=== PATIENT | male | born 1970 | race Caucasian/White ===

== ENCOUNTER 2016-11-17 15:42 | Emergency (ER) | payer SELFPAY ==
[~2016-11-17] VITALS: Ht 190.5 cm; Wt 160.1 kg
[~2016-11-17 15:42] MED LIST: ALPR1TAB72 PO; AMOX-358 PO; ARIP10TA2 PO; ARMO250T3 PO; ATEN50TA PO; ATR20T PO; CLN150C PO; CYCL10TA9 PO; ESCI20TA2 PO; GBPN300C PO; HYDR-3714 PO; MELO-195 PO; METO50TA7 PO; MTF500T PO; NAPR-243 PO; OMG1KC; PENI500T PO; PRAV40TA PO; SERT100T PO; TOPAMAX PO; TOPI50TA2 PO; TRAZ150T42 PO; TRIH2TAB2 PO
--- NOTE | 2016-11-17 15:52 | ED EENT ---
History of Present Illness General Stated Complaint: TOOTH PAIN/RT SIDED FACIAL SWELLING Source: patient Exam Limitations: no limitations History of Present Illness Time seen by provider: 15:50 Initial Comments To ER with a 3-4 day history of swelling to the right side of the mandible. This is intensely painful and he cannot eat because of it. No fevers or chills. He is noncompliant diabetic states that he does not take his medications. Timing/Duration: abrupt Severity: moderate Location: mouth, dental Associated Symptoms: facial pain/swelling Allergies and Home Medications Allergies Coded Allergies: bupropion (Verified Allergy, Unknown, 10/29/06) atorvastatin calcium (Verified Adverse Reaction, Unknown, 11/09/12) Home Medications Hydrocodone Bit/Acetaminophen 1 Tab Tablet, 1 TAB PO Q4H, #14 Prescribed by: VERONICA PRECIADO on 04/04/14 0532 Meloxicam 15 Mg Tablet, 15 MG PO DAILY, (Reported) Metformin Hcl 500 Mg Tablet, 2 EACH PO BID WITH MEALS, (Reported) Metoprolol Succinate 50 Mg Tab.sr.24h, 1 EACH PO DAILY, (Reported) [place] 3 Polyunsat Fatty Acids 1,000 Mg Cap, #120 (Reported) Penicillin V Potassium 500 Mg Tablet, 500 MG PO Q6H, #28 Prescribed by: RAUL VÁZQUEZ on 12/16/15 1943 Pravastatin Sodium 40 Mg Tablet, 20 MG PO DAILY, (Reported) Sertraline Hcl 100 Mg Tablet, 100 MG PO DAILY, (Reported) Topiramate 50 Mg Tablet, 50 MG PO BID, (Reported) Review of Systems Constitutional: see HPI, No chills, No fever Eyes: No Symptoms Reported Ears: No Symptoms Reported Nose: no symptoms reported Mouth: see HPI Throat: no symptoms reported Respiratory: no symptoms reported Cardiovascular: no symptoms reported Musculoskeletal: no symptoms reported Past Bvjvldy-Ppbwkb-Rlhtlf Hx Patient Social History Type Used: Pipe Recent Foreign Travel: No Contact w/Someone Who Travel: No Seasonal Allergies Seasonal Allergies: No Surgeries HX Surgeries: No Respiratory Hx Respiratory Disorders: Yes (HAS A CPAP) Respiratory Disorders: Sleep Apnea Cardiovascular Hx Cardiac Disorders: Yes Cardiac Disorders: High Cholesterol, Hypertension Neurological Hx 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) Reproductive System Hx Reproductive Disorders: No Genitourinary Hx Genitourinary Disorders: No Gastrointestinal Hx Gastrointestinal Disorders: No Musculoskeletal Hx Musculoskeletal Disorders: No Endocrine Hx Endocrine Disorders: Yes Endocrine Disorders: Diabetes, Non-Insulin dep HEENT HX ENT Disorders: No Cancer Hx Cancer: No Psychosocial Hx Psychiatric Problems: Yes Behavioral Health Disorders: Anxiety, Depression Integumentary HX Skin/Integumentary Disorder: Yes (NUMEROUS SCABBED OR HEALED SKIN LESIONS) Blood Transfusions Hx Blood Disorders: No Family Medical History Significant Family History: No Pertinent Family Hx Family Medial History: Diabetes mellitus 19 MOTHER G8 SISTER Physical Exam General Appearance: WD/WN, no apparent distress, obese Eyes: bilateral eye EOMI, bilateral eye PERRL, bilateral eye normal inspection Ears: bilateral ear TM normal, bilateral ear auricle normal, bilateral ear canal normal Mouth/Throat: other (poor dentition on the right side of the mandible. There is a fluctuant rather large area to the buccal mucosa near the molars on the right) Respiratory: normal breath sounds, no respiratory distress, no accessory muscle use Neurologic/Psychiatric: alert, normal mood/affect, oriented x 3 Skin: normal color, warm/dry I&D : Blade Size: 11 Progress An inferior alveolar nerve block was done on the right side. Total of 1 mL of 1 percent lidocaine without epinephrine was used. An incision was then made over the maximum area of fluctuance. A large amount of purulent material was expressed. Bleeding was minimal and easily controlled Progress/Results/Core Measures Results/Orders Lab Results Laboratory Tests Test 11/17/16 00:00 11/17/16 15:55 Range/Units My Orders Orders - RAUL VÁZQUEZ APRN Saline Lock/Iv-Start (11/17/16 15:48) Cbc With Automated Diff (11/17/16 15:48) Basic Metabolic Panel (11/17/16 15:48) Clindamycin Injection (Cleocin Injection (11/17/16 16:00) Ketorolac Injection (Toradol Injection) (11/17/16 16:00) Hydrocodone/Apap 5/325 Tablet (Lortab 5 (11/17/16 16:00) Lidocaine 2% Injection 20 Ml (Xylocaine (11/17/16 16:00) Medications Given in ED Current Medications Medications Dose Ordered Sig/Liliane Route Start Time Stop Time Status Last Admin Dose Admin Acetaminophen/ Hydrocodone Bitart 1 tab ONCE ONCE PO 11/17/16 16:00 11/17/16 16:01 DC 11/17/16 16:04 1 TAB Clindamycin Phosphate 900 mg/ Sodium Chloride 56 ml @ 100 mls/hr ONCE ONCE IV 11/17/16 16:00 11/17/16 16:33 11/17/16 16:04 100 MLS/HR Ketorolac Tromethamine 30 mg ONCE ONCE IVP 11/17/16 16:00 11/17/16 16:01 DC 11/17/16 16:03 30 MG Departure Communication Progress Notes Patient states that he pays for his medications with [facility] so they would need to be on the $4 prescription list. Impression Impression: Primary Impression: Dental abscess Disposition: HOME, SELF-CARE Condition: Stable Departure-Patient Inst. Decision time for Depature: 16:14 Referrals: [facility] (PCP/Family) Primary Care Physician Patient Instructions: Tooth Abscess (DC) Add. Discharge Instructions: 1. Medications as directed 2. Return to ER for any concerns 3. See your dentist next week 4. Scripts Hydrocodone/Acetaminophen ([place] 5-325 Tablet) 1 Each Tablet 1 EACH PO Q6H Y for PAIN-SEVERE, #14 TAB Do not fill unless amoxicillin is also filled and this has been sent to [facility] pharmacy. Prov: RAUL VÁZQUEZ APRN 11/17/16 Amoxicillin (Amoxicillin) 500 Mg Capsule 500 MG PO TID, #21 CAP Prov: RAUL VÁZQUEZ APRN 11/17/16 Images Mouth/Nose 1 - Fracture Tooth, Swelling 2 - Caries, Fracture Tooth RAUL VÁZQUEZ APRN Nov 17, 2016 15:52
[2016-11-17] MEDS ORDERED: KETOROLAC 30 MG/ML VIAL IVP ONE (16:00)
[2016-11-17] MEDS ORDERED: CLINDAMYCIN INJECTION 900 MG in NS (IVPB) 50 ML IV ONE (16:00)
[2016-11-17] MEDS ORDERED: HYDROcodone/APAP 5 MG/325 MG (LORTAB) TAB PO ONE (16:00)
[2016-11-17] MEDS ORDERED: LIDOCAINE 2% 20 ML (XYLOCAINE) VIAL INJ ONE (16:00)
[2016-11-17] MEDS ORDERED: HYDR-757 PO (16:16)
[2016-11-17] MEDS ORDERED: AMOX500C2 PO (16:16)
[2016-11-17 16:17] LABS: BASOPHILS % (AUTO) 0 % (0-10); EOSINOPHILS # (AUTO) 0.1 10^3/uL (0.0-0.3); EOSINOPHILS % (AUTO) 1 % (0-10); LYMPHOCYTES % (AUTO) 27 % (12-44); MEAN CORPUSCULAR HEMOGLOBIN 30 PG (25-34); MEAN CORPUSCULAR HGB CONC 34 G/DL (32-36); MEAN CORPUSCULAR VOLUME 87 FL (80-99); MEAN PLATELET VOLUME 10.5 FL (7.4-10.4); MONOCYTES % (AUTO) 9 % (0-12); NEUTROPHILS % (AUTO) 63 % (42-75); PLATELET COUNT 210 10^3/uL (130-400); RED BLOOD COUNT 5.29 10^6/uL (4.35-5.85); RED CELL DISTRIBUTION WIDTH 13.9 % (10.0-14.5); WHITE BLOOD COUNT 11.2 10^3/uL (4.3-11.0)
[2016-11-17 16:38] LABS: ANION GAP 15 MMOL/L (5-14); BLOOD UREA NITROGEN 6 MG/DL (7-18); BUN/CREATININE RATIO 6; CALCIUM 8.5 MG/DL (8.5-10.1); CARBON DIOXIDE 17 MMOL/L (21-32); CHLORIDE 104 MMOL/L (98-107); CREATININE SERUM 0.98 MG/DL (0.60-1.30); GFR ESTIMATED > 60; GLUCOSE 281 MG/DL (70-105); POTASSIUM 3.7 MMOL/L (3.6-5.0); SODIUM 136 MMOL/L (135-145)
[2016-11-17 17:06] VITALS: BP 133/97
== END 2016-11-17 17:06 | disposition home or self-care (01) ==
LOC: EDUNIT# 15:42 → ER 15:44
DX: K04.7 Periapical abscess without sinus (principal); G47.33 Obstructive sleep apnea (adult) (pediatric); E78.00 Pure hypercholesterolemia, unspecified; I10 Essential (primary) hypertension; F41.9 Anxiety disorder, unspecified; F32.9 Major depressive disorder, single episode, unspecified; E11.9 Type 2 diabetes mellitus without complications; Z91.14 Patient's other noncompliance with medication regimen; Z79.84 Long term (current) use of oral hypoglycemic drugs
CPT/HCPCS: 36415; 80048; 85025; 96365; 96375

== ENCOUNTER 2017-11-21 16:10 | Emergency (ER) | payer OTHER, MEDICAID ==
[~2017-11-21] VITALS: Ht 190.5 cm; Wt 124.7 kg
[~2017-11-21 16:10] MED LIST changes: +AMOX500C2 PO; +HYDR-757 PO
--- OUTSIDE RECORDS SUMMARY | 2017-11-21 16:16 | XMS REPORT ---
Author Author HUMA Dickinson Organization [facility] Address [address] [place] [address] Care Team Providers Care Personal Finance Instructor Name Role Phone HUMA Dickinson Unavailable PROBLEMS Type Condition ICD9-CM Code [id number] Code Onset Dates Condition Status SNOMED Code Problem Major depressive disorder, single episode, unspecified F32.9 Active 435959113 Problem Depression 311 Active 77509038 Problem Schizotypal disorder F21 Active 36503290 Problem Hypertension, benign I10 Active 31835078 Problem Bipolar 1 disorder F31.9 Active 083603016 Problem Anxiety F41.9 Active 10240313 Problem Severe episode of recurrent major depressive disorder, with psychotic features F33.3 Active 87774407 Problem Generalized anxiety disorder F41.1 Active 33869608 Problem Controlled type 2 diabetes mellitus without complication, without long -term current use of insulin E11.9 Active 255700996 Problem Uncontrolled type 2 diabetes mellitus without complication, without long-term current use of insulin E11.65 Active 309723795 Problem Seasonal allergic rhinitis due to pollen J30.1 Active 26615252 Problem Low back pain of thoracolumbar region with sciatica M54.40 Active 997442601 ALLERGIES No Information ENCOUNTERS Encounter Location Date Diagnosis [facility] [id number] [place] [address] 21581- 3714 Sep, PTSD (post-traumatic stress disorder) F43.10 and Severe episode of recurrent major depressive disorder, with psychotic features F33.3 [facility] [id number] [place] [address] 37214- 9573 Sep, Acute upper back pain M54.9 and BMI 40.0-44.9, adult Z68.41 [facility] [address] [address] August, [facility] [id number] [address] 9530 19 Jul, 2017 Severe episode of recurrent major depressive disorder, with psychotic features F33.3 ; Generalized anxiety disorder F41.1 and BMI 40.0-44.9 , adult Z68.41 [facility] [id number] [place] [address] 26031- 8359 18 Jul, 2017 Type 2 diabetes mellitus with other specified complication E11.69 and Encounter for immunization Z23 [facility] [id number] [place] [address] 11296- 1762 Jul, [facility] [id number] [place] [address] 45888- 2680 Jun, [facility] [id number] [place] [address] 42678- 5788 Jun, [facility] [id number] [place] [address] 24618- 3341 Jun, BMI 40.0-44.9, adult Z68.41 ; Severe episode of recurrent major depressive disorder, with psychotic features F33.3 and Generalized anxiety disorder F41.1 [facility] [id number] [place] [address] 89703- 7018 15 Jun, 2017 BMI 40.0-44.9, adult Z68.41 and Severe episode of recurrent major depressive disorder, with psychotic features F33.3 [facility] [id number] [place] [address] 62166- 8485 14 Jun, 2017 Major depressive disorder, single episode, unspecified F32.9 [facility] [address] [address] 3279 14 Jun, 2017 [facility] [id number] [place] [address] 58406- 7085 14 Jun, 2017 BMI 40.0-44.9, adult Z68.41 and Severe episode of recurrent major depressive disorder, with psychotic features F33.3 [facility] [id number] [place] [address] 90814- 7548 Jun, BMI 40.0-44.9, adult Z68.41 ; Type 2 diabetes mellitus with other specified complication E11.69 and Bronchitis J40 [facility] [id number] [place] [address] 78014- 8667 Jun, [facility] [id number] [place] [address] 75024- 8899 Mar, [facility] [address] 78759- 4312 Feb, Type 2 diabetes mellitus with other specified complication E11.69 ; Generalized anxiety disorder F41.1 and Hypertension, benign I10 [facility] [address] 46953- 2599 Jan, Seasonal allergic rhinitis due to pollen J30.1 ; Viral gastroenteritis A08.4 and PTSD (post-traumatic stress disorder) F43.10 [facility] [id number] [place] [address] 46735- 8962 Sep, [facility] [address] 28429- 2153 Sep, Erythema L53.9 [facility] [id number] [place] [address] 85868- 8703 August, Type 2 diabetes mellitus with other specified complication E11.69 and Hypertension, benign I10 [facility] [id number] [place] [address] 08250- 6745 August, Viral gastroenteritis A08.4 ; Type 2 diabetes mellitus with other specified complication E11.69 ; Hypertension, benign I10 and PTSD (post- traumatic stress disorder) F43.10 [facility] [id number] [place] [address] 27375- 4197 August, [facility] [id number] [place] [address] 93981- 8475 August, PTSD (post-traumatic stress disorder) F43.10 [facility] [id number] [place] [address] 58648- 6129 Jul, [facility] [id number] [place] [address] 85296- 9190 Jun, Type 2 diabetes mellitus with other specified complication E11.69 [facility] [id number] [place] [address] 21252 -5836 28 May, 2016 Body aches R52 ; Sore throat J02.9 ; Other viral agents as the cause of diseases classified elsewhere B97.89 and Acute upper respiratory infection, unspecified J06.9 [facility] [id number] [place] [address] 86511- 0948 May, [facility] [id number] [place] [address] 28833- 8139 May, Seasonal allergic rhinitis due to pollen J30.1 and Controlled type 2 diabetes mellitus without complication, without long-term current use of insulin E11.9 [facility] [id number] [place] [address] 99207- 2404 02 May, 2016 PTSD (post-traumatic stress disorder) F43.10 and Generalized anxiety disorder F41.1 [facility] [id number] [place] [address] 10659- 0620 Apr, Type 2 diabetes mellitus with other specified complication E11.69 ; Bronchitis J40 and Low back pain of thoracolumbar region with sciatica M54.40 [facility] [id number] [place] [address] 51497- 0456 Apr, PTSD (post-traumatic stress disorder) F43.10 and Uncontrolled type 2 diabetes mellitus without complication, without long-term current use of insulin E11.65 [facility] [id number] [place] [address] 24792- 8798 Mar, Type 2 diabetes mellitus with other specified complication E11.69 ; Urinary retention R33.9 and Urinary frequency R35.[address] 90164- 2992 Mar, Bronchitis J40 [facility] [place] [id number] [place] [address] 05087- 6297 Feb, Controlled type 2 diabetes mellitus without complication, without long-term current use of insulin E11.9 and Hypertension, benign I10 [facility] [id number] [place] [address] 43516- 2971 Feb, PTSD (post-traumatic stress disorder) F43.10 [facility] [id number] [place] [address] 97472- 1016 Jan, [facility] [id number] [place] [address] 03579- 2821 Jan, Uncontrolled type 2 diabetes mellitus without complication, without long-term current use of insulin E11.65 [facility] [id number] [place] [address] 71339- 0017 Dec, Diabetes type 2, controlled E11.9 ; Periodontal abscess K05.21 and Sinusitis, unspecified chronicity, unspecified location J32.9 [facility] [id number] [place] [address] 61752- 0250 Dec, [facility] [id number] [place] [address] 50238- 5548 Dec, [facility] [id number] [place] [address] 09042- 7934 Nov, Chronic fatigue R53.82 [facility] [id number] [place] [address] 37863- 6580 Oct, Common wart B07.8 [facility] [id number] [place] [address] 82474- 5173 Sep, Type 2 diabetes mellitus with other specified complication E11.69 ; Common wart B07.8 and Dermatofibroma D23.9 [facility] [id number] [place] [address] 16810- 9579 Sep, PTSD (post-traumatic stress disorder) F43.10 and Generalized anxiety disorder F41.1 [facility] [id number] [place] [address] 22228- 8974 Jul, [facility] [address] 10171- 1360 Jul, [facility] [id number] [place] [address] 70857- 4409 Jul, PTSD (post-traumatic stress disorder) F43.10 and Generalized anxiety disorder F41.1 [facility] [place] [address] 34213- 4794 Jul, [facility] [address] 69808- 0113 Jul, Obesity, morbid E66.01 ; Diabetes type 2, controlled E11.9 ; Hypertension, benign I10 and Arthritis M19.90 [facility] [address] 53694- 6230 Jul, Type 2 diabetes mellitus without complications E11.9 [facility] [id number] [place] [address] 13857- 7837 17 Jun, 2015 Type 2 diabetes mellitus with other specified complication E11.69 [facility] [facility] [id number] [place] [address] 90336- 7498 07 Jun, 2015 Type 2 diabetes mellitus with other specified complication E11.69 and Abdominal pain, generalized R10.84 [facility] [id number] [place] [address] 12983- 4443 May, [facility] [id number] [place] [address] 55753- 2803 May, Toothache K08.8 [facility] [id number] [place] [address] 22704- 2173 Apr, [facility] [id number] [place] [address] [id number] Mar, Dental examination Z01.20 and Dental caries K02.9 [facility] [id number] [place] [address] [id number]- 2735 Mar, [facility] [id number] [place] [address] [id number] Mar, Dental examination Z01.20 and Dental caries K02.9 [facility] [id number] [place] [address] 41080- 0949 Feb, Dental abscess K04.7 and Type 2 diabetes mellitus with other specified complication E11.69 [facility] [id number] [place] [address] 99472- 6790 Feb, [facility] [address] 707080- 1476 Feb, PTSD (post-traumatic stress disorder) F43.10 ; Generalized anxiety disorder F41.1 and Depressive disorder F32.9 [facility] [id number] [place] [address] 31693- 3264 Jan, [facility] [id number] [place] [address] 44930- 4899 Jan, [facility] [id number] [place] [address] 39631- 6047 Jan, [facility] [id number] [place] [address] 55940- 4203 Jan, [facility] [id number] [place] [address] 47863- 3950 14 Dec, 2014 Vision changes 368.9 ; Diabetes 250.00 and Hypertension 401.9 [facility] [id number] [place] [address] 33042- 4087 04 Dec, 2014 Generalized anxiety disorder 300.02 ; Depressive disorder, not elsewhere classified 311 and Posttraumatic stress disorder 309.81 [facility] [id number] [place] [address] 55915452- 9732 Nov, [facility] [id number] [place] [address] 24517- 7978 Oct, [facility] [address] [facility] [id number] [address]- 1577 Sep, Erectile dysfunction 607.84 [facility] [address] [address]- 8786 16 Sep, 2014 [facility] [address], [place] [address]- 2916 Sep, Generalized anxiety disorder 300.02 ; Depressive disorder, not elsewhere classified 311 and Posttraumatic stress disorder 309.81 [facility] [address] [facility] [id number] [place] [address]- 4946 August, [facility] [id number] [place] [address] 57666- 1116 14 Jul, 2014 [facility] [address], [place] [address]- 4176 Jul, [facility] [address], [place] [address]- 0896 Jun, [facility] [address], [place] [address]- 3576 Jun, [facility] [address], [place] [address]- 6756 Jun, [facility] [address] [address]- 5706 Jun, [facility] [address] [address]- 3686 Jun, [facility] [id number] [address]- 3754 10 Jun, 2014 [facility] [address], [place] [address] 2546 Jun, [facility] [address] [facility] [id number], [place] [address]- 2546 10 Jun, 2014 [facility] [address] [address]- 8687 Jun, [facility] [place] [facility] [address] [id number] [place] [address]- 6544 Jun, [facility] [place] [facility] [address] [id number] [place] [address]- 5762 Jun, 2014 [facility] [place] [facility] [address] [facility] [id number] [place] [address]- 5643 Jun, [facility] [place] [facility] [address] [id number] [place] [address]- 3509 Mar, [facility] [place] [facility] [address] [id number] [place] [address]- 9562 Mar, [facility] [place] [facility] [address] [id number] [place] [address]- 3099 Jan, [facility] [place] [facility] [address] [id number] [place] [address]- 4879 Jan, [facility] [place] [facility] [address] [id number] [address]- 7252 15 Dec, 2013 [facility] [place] [facility] [address] [id number] [place] [address]- 1605 15 Dec, 2013 [facility] [place] [facility] [address] [id number] [place] [address]- 6794 15 Dec, 2013 [facility] [place] [facility] [address] [id number], [place] [address]- 7598 15 Dec, 2013 [facility] [place] [facility] [address] [id number], [place] [address]- 4167 Dec, 2013 [facility] [place] [facility] [address] [id number] [place] [address]- 0009 Dec, 2013 [facility] [place] [facility] [address] [id number] [place] [address]- 5013 Dec, 2013 [facility] [place] [facility] [address] [id number] [address]- 8536 Dec, 2013 [facility] [place] [facility] [address] [id number] [place] [address]- 2655 Dec, [facility] [place] [facility] [address] [id number] [place] [address]- 9316 Dec, [facility] [place] [facility] [address] [id number] [place] [address]- 6139 Nov, [facility] [place] [facility] [address] [id number] [place] [address]- 0707 Nov, [facility] [place] [facility] [address] [id number] [place] [address]- 0335 Oct, [facility] [place] [facility] [address] [id number] [place] [address]- 6974 Oct, [facility] [place] [facility] [address] [id number] [place] [address]- 7983 Oct, [facility] [place] [facility] [address] [id number] [place] [address]- 3133 Oct, [facility] [place] [facility] [address] [id number] [place] [address]- 7085 Oct, [facility] [place] [facility] [address] [id number] [place] [address]- 0182 Oct, [facility] [place] [facility] [address] [id number] [place] [address]- 6912 Sep, [facility] [place] [facility] [address] [id number] [place] [address]- 5131 Sep, [facility] [place] [facility] [address] [id number] [place] [address]- 3381 Sep, [facility] [place] [facility] [address] [id number] [place] [address]- 0843 Sep, [facility] [place] [facility] [address] [id number] [place] [address]- 4423 August, [facility] [place] [facility] [address] [id number] [place] [address]- 2576 August, [facility] [place] [facility] [address] [id number] [place] [address]- 7251 August, [facility] [place] [facility] [address] [id number] [place] [address]- 1320 August, [facility] [place] [facility] [address] [id number] [place] 4750 August, [facility] [place] [facility] [address] [id number] [place] [address]- 9741 Jul, [facility] [place] [facility] [address] [id number] [place] [address]- 8100 Jul, [facility] [place] [facility] [address] [id number] [place] [address]- 1061 Jul, [facility] [place] [facility] [address] [id number] [place] [address]- 7494 Jul, [facility] [place] [facility] [address] [id number] [place] [address]- 1453 Jul, [facility] [place] [facility] [address] [id number] [place] [address]- 0390 Jul, [facility] [place] [facility] [address] [id number] [place] [address]- 5833 May, [facility] [place] [facility] [address] [id number] [place] [address]- 3104 May, [facility] [place] [facility] [address] [id number] [place] [address]- 1348 Apr, [facility] [place] [facility] [address] [id number] [place] [address]- 6233 Apr, [facility] [place] [facility] [address] [id number] [place] [address]- 2531 Apr, [facility] [place] [facility] [address] [id number] [place] [address]- 9850 Apr, [facility] [place] [facility] [address] [id number], [place] [address]- 8646 Apr, [facility] [address] [id number] [place] [address]- 9777 Apr, [facility] [place] [facility] [address] [id number] [place] [address]- 2797 Feb, [facility] [place] [facility] [address] [id number] [place] [address]- 1023 Feb, [facility] [place] [facility] [address] [id number] [place] [address]- 3097 Feb, [facility] [place] [facility] [address] [id number] [place] [address]- 1487 Feb, [facility] [place] [facility] [address] [id number] [place] [address]- 7545 Feb, [facility] [address] [id number] [place] [address]- 5284 Feb, [facility] [place] [facility] [address] [id number] [place] [address]- 2043 Jan, [facility] [address] [id number] [place] [address]- 8415 Dec, [facility] [place] [facility] [address] [id number] [place] [address]- 3147 Oct, [facility] [place] [facility] [address] [id number], [place] [address]- 1151 August, [facility] [place] [facility] [address] [id number] [place] [address]- 1347 August, [facility] [place] [facility] [address] [id number] [place] [address]- 3695 August, [facility] [place] [facility] [address] [id number] [place] [address]- 7070 August, [facility] [place] [facility] [address] [id number] [place] [address]- 5977 Jul, [facility] [place] [facility] [address] [id number] [place] [address]- 8647 23 Jul, 2012 [facility] [address] [id number] [place] [address]- 0436 18 Jul, 2012 [facility] [place] [facility] [address] [id number] [place] [address]- 4076 18 Jul, 2012 [facility] [address] [id number] [place] [address]- 6876 16 Jul, 2012 [facility] [place] [facility] [address] [id number] [place] [address]- 1238 20 Jun, 2012 [facility] [address] [id number] [place] [address]- 9447 20 Jun, 2012 [facility] [address] [id number] [place] [address]- 3712 15 Jun, 2012 [facility] [address] [id number] [place] [address]- 3953 13 Jun, 2012 [facility] [address] [id number] [place] [address]- 5501 22 May, 2012 [facility] [address] [id number] [place] [address] 13 May, 2012 [facility] [address] [id number] [place] [address] 15 Apr, 2012 [facility] [address] [id number] [place] [address] 26 Mar, 2012 [facility] [address] [id number] [place] [address] 26 Mar, 2012 [facility] [place] [facility] [address] [id number] [place] [address] 14 Mar, 2012 [facility] [place] [facility] [address] [id number] [place] [address] 14 Mar, 2012 [facility] [place] [facility] [address] [id number] [place] [address] Mar, [facility] [place] [facility] [address] [id number] [place] [address] 14 Mar, 2012 [facility] [place] [facility] [address] [id number] [place] [address] Mar, [facility] [place] [facility] [address] [facility] [id number] [place] [address] Mar, [facility] [place] [facility] [address] [id number] [place] [address] Mar, [facility] [place] [facility] [address] [id number] [place] [address] Feb, [facility] [place] [facility] [address] [id number] [place] [address] Feb, [facility] [place] [facility] [address] [facility] [id number] [place] [address] Feb, [facility] [place] [facility] [address] [id number], [place] [address] Feb, [facility] [place] [facility] [address] [id number] [place] [address] Feb, [facility] [place] [facility] [address] [facility] [id number] [place] [address] Feb, [facility] [place] [facility] [address] [id number], [place] [address] Feb, [facility] [place] [facility] [address] [id number], [place] [address] Feb, [facility] [place] [facility] [address] [id number] [place] [address] Jan, [facility] [place] [facility] [address] [id number], [place] [address] Jan, [facility] [place] [facility] [address] [facility] [id number], [place] [address] Jan, [facility] [place] [facility] [address] [id number] [place] [address] Jan, [facility] [place] [facility] [address] [id number] [place] [address] Jan, [facility] [place] [facility] [address] [id number] [place] [address] Jan, [facility] [place] [facility] [address] [id number] [place] [address] Jan, [facility] [place] [facility] [address] [id number] [place] [address] Jan, [facility] [place] [facility] [address] [address] [id number] [place] [address] Jan, [facility] [place] [facility] [address] [id number] [place] [address] Jan, [facility] [place] [facility] [address] [id number] [place] [address] Dec, [facility] [place] [facility] [address] [id number] [place] [address] Dec, [facility] [place] [facility] [address] [id number] [place] [address] Dec, [facility] [place] [facility] [address] [id number] [place] [address] Nov, [facility] [place] [facility] [address] [id number] [place] [address] Nov, [facility] [place] [facility] [address] [id number] [place] [address] Nov, [facility] [place] [facility] [address] [id number] [place] [address] Nov, [facility] [place] [facility] [address] [id number] [place] [address] Oct, [facility] [place] [facility] [address] [id number] [place] [address] Oct, [facility] [address] [facility] [place] [id number], [place] [address] Sep, [facility] [address] [facility] [place] [id number], [place] [address] Sep, [facility] [address] [facility] [place] [id number], [place] [address] Apr, [facility] [address] [facility] [id number], [place] [address] Apr, IMMUNIZATIONS No Known Immunizations SOCIAL HISTORY Never Assessed REASON FOR VISIT [facility] intake PLAN OF CARE Activity Details Follow Up Not rescheduled Reason:Rule out depression VITAL SIGNS MEDICATIONS Unknown Medications RESULTS No Results PROCEDURES Procedure Date Ordered Result Body Site Psych diagnostic evaluation, new patient July 11, 2017 INSTRUCTIONS MEDICATIONS ADMINISTERED No Known Medications MEDICAL (GENERAL) HISTORY Type Description Date Medical History hypertension Medical History hyperlipidemia Medical History psychiatric disorders Medical History Type 2 diabetes Surgical History dental surgery Hospitalization History pneumonia 10/2006
--- OUTSIDE RECORDS SUMMARY | 2017-11-21 16:17 | XMS REPORT ---
Author Author FAUSTO WES Organization [facility] Address [address] [place] [address] Care Team Providers Care Computing Tutor Name Role Phone JENIFFERCAREN ACOSTAA Unavailable PROBLEMS Type Condition ICD9-CM Code ITL54-ZD Code Onset Dates Condition Status SNOMED Code Problem Major depressive disorder, single episode, unspecified F32.9 Active 179771955 Problem Depression 311 Active 32014831 Problem Schizotypal disorder F21 Active 76396969 Problem Hypertension, benign I10 Active 87604400 Problem Bipolar 1 disorder F31.9 Active 274280775 Problem Anxiety F41.9 Active 62070306 Problem Severe episode of recurrent major depressive disorder, with psychotic features F33.3 Active 23433281 Problem Generalized anxiety disorder F41.1 Active 30938505 Problem Controlled type 2 diabetes mellitus without complication, without long -term current use of insulin E11.9 Active 643428054 Problem Uncontrolled type 2 diabetes mellitus without complication, without long-term current use of insulin E11.65 Active 175066914 Problem Seasonal allergic rhinitis due to pollen J30.1 Active 74464954 Problem Low back pain of thoracolumbar region with sciatica M54.40 Active 548914641 ALLERGIES No Information ENCOUNTERS Encounter Location Date Diagnosis [facility] [id number] [place] [address] 04594- 5266 Sep, PTSD (post-traumatic stress disorder) F43.10 and Severe episode of recurrent major depressive disorder, with psychotic features F33.3 [facility] [id number] [address] Sep, Acute upper back pain M54.9 and BMI 40.0-44.9, adult Z68.41 [facility] [address], [place] [address] August, [facility] [id number] [address] 7578 19 Jul, 2017 Severe episode of recurrent major depressive disorder, with psychotic features F33.3 ; Generalized anxiety disorder F41.1 and BMI 40.0-44.9 , adult Z68.41 [facility] [id number] [place] [address] 37956- 0808 18 Jul, 2017 Type 2 diabetes mellitus with other specified complication E11.69 and Encounter for immunization Z23 [facility] [id number] [place] [address] 08944- 1767 17 Jul, 2017 [facility] [id number] [place] [address] 15288- 3757 Jun, [facility] [id number] [place] [address] 49117- 6322 Jun, [facility] [facility] [id number] [place] [address] 85892- 1112 Jun, BMI 40.0-44.9, adult Z68.41 ; Severe episode of recurrent major depressive disorder, with psychotic features F33.3 and Generalized anxiety disorder F41.1 [facility] [facility] [id number] [place] [address] 92592- 5417 15 Jun, 2017 BMI 40.0-44.9, adult Z68.41 and Severe episode of recurrent major depressive disorder, with psychotic features F33.3 [facility] [id number] [place] [address] 98422- 6908 14 Jun, 2017 Major depressive disorder, single episode, unspecified F32.9 [facility] [address] [place] [address] 89049- 6110 14 Jun, 2017 [facility] [id number] [place] [address] 35492- 7975 14 Jun, 2017 BMI 40.0-44.9, adult Z68.41 and Severe episode of recurrent major depressive disorder, with psychotic features F33.3 [facility] [id number] [place] [address] 88484- 6848 Jun, BMI 40.0-44.9, adult Z68.41 ; Type 2 diabetes mellitus with other specified complication E11.69 and Bronchitis J40 [facility] [facility] [id number] [place] [address] 07062- 4497 Jun, [facility] [id number] [place] [address] 49223- 4684 Mar, [facility] [id number] [place] [address] 13603- 1092 Feb, Type 2 diabetes mellitus with other specified complication E11.69 ; Generalized anxiety disorder F41.1 and Hypertension, benign I10 [place] [address] 30719- 3805 Jan, Seasonal allergic rhinitis due to pollen J30.1 ; Viral gastroenteritis A08.4 and PTSD (post-traumatic stress disorder) F43.10 [facility] [id number] [place] [address] 40998- 8593 Sep, [facility] [id number] [place] [address] 06133- 2134 Sep, Erythema L53.9 [facility] [id number] [place] [address] 99471- 7248 August, Type 2 diabetes mellitus with other specified complication E11.69 and Hypertension, benign I10 [facility] [id number] [place] [address] 32285- 8042 August, Viral gastroenteritis A08.4 ; Type 2 diabetes mellitus with other specified complication E11.69 ; Hypertension, benign I10 and PTSD (post- traumatic stress disorder) F43.10 [facility] [place] [id number] [place] [address] 38419- 0346 August, [facility] [id number] [place] [address] 76701- 8132 August, PTSD (post-traumatic stress disorder) F43.10 [facility] [id number] [place] [address] 45599- 4914 Jul, [facility] [address] [place] [address] 16826- 4997 Jun, Type 2 diabetes mellitus with other specified complication E11.69 [facility] [address] [place] [address] 19475 -8936 May, Body aches R52 ; Sore throat J02.9 ; Other viral agents as the cause of diseases classified elsewhere B97.89 and Acute upper respiratory infection, unspecified J06.9 [facility] [id number] [place] [address] 80105- 2469 May, [facility] [id number] [place] [address] 11199- 8426 May, Seasonal allergic rhinitis due to pollen J30.1 and Controlled type 2 diabetes mellitus without complication, without long-term current use of insulin E11.9 [facility] [place] [id number] [place] [address] 01449- 7942 02 May, 2016 PTSD (post-traumatic stress disorder) F43.10 and Generalized anxiety disorder F41.1 [facility] [place] [id number] [place] [address] 20527- 1051 Apr, Type 2 diabetes mellitus with other specified complication E11.69 ; Bronchitis J40 and Low back pain of thoracolumbar region with sciatica M54.40 [facility] [address] [place] [address] 34856- 3747 Apr, PTSD (post-traumatic stress disorder) F43.10 and Uncontrolled type 2 diabetes mellitus without complication, without long-term current use of insulin E11.65 [facility] [id number] [place] [address] 16060- 9288 Mar, Type 2 diabetes mellitus with other specified complication E11.69 ; Urinary retention R33.9 and Urinary frequency R35.0 [place] [id number] [place] [address] 55813- 5105 Mar, Bronchitis J40 [place] [address] [place] [address] 67805- 1436 28 Feb, 2016 Controlled type 2 diabetes mellitus without complication, without long-term current use of insulin E11.9 and Hypertension, benign I10 [facility] [id number] [place] [address] 78682- 9639 03 Feb, 2016 PTSD (post-traumatic stress disorder) F43.10 [facility] [place] [id number] [place] [address] 51220- 6685 Jan, [facility] [id number] [place] [address] 78930- 6808 Jan, Uncontrolled type 2 diabetes mellitus without complication, without long-term current use of insulin E11.65 [facility] [id number] [place] [address] 09151- 2747 Dec, Diabetes type 2, controlled E11.9 ; Periodontal abscess K05.21 and Sinusitis, unspecified chronicity, unspecified location J32.9 [facility] [id number] [place] [address] 59077- 4500 21 Dec, 2015 [place] [place] [id number] [place] [address] 40596- 4686 Dec, [facility] [id number] [place] [address] 18170- 6553 Nov, Chronic fatigue R53.82 [facility] [id number] [place] [address] 27060- 7067 Oct, Common wart B07.8 [facility] [facility] [id number] [place] [address] 00464- 3923 Sep, Type 2 diabetes mellitus with other specified complication E11.69 ; Common wart B07.8 and Dermatofibroma D23.9 [facility] [address] [place] [address] 31885- 7838 Sep, PTSD (post-traumatic stress disorder) F43.10 and Generalized anxiety disorder F41.1 [place] [address], [place] [address]- 5772 Jul, [facility] [id number] [place] [address] 28259- 3776 Jul, [place] [id number] [place] [address] 12539- 3297 Jul, PTSD (post-traumatic stress disorder) F43.10 and Generalized anxiety disorder F41.1 [place] [id number] [place] [address] 41496- 5316 Jul, [place] [id number] [place] [address] 04677- 9884 Jul, Obesity, morbid E66.01 ; Diabetes type 2, controlled E11.9 ; Hypertension, benign I10 and Arthritis M19.[address] 23554- 5631 Jul, Type 2 diabetes mellitus without complications E11.9 [place] [id number] [place] [address] 98501- 0149 17 Jun, 2015 Type 2 diabetes mellitus with other specified complication E11.69 [place] [id number] [place] [address] 60967- 2236 07 Jun, 2015 Type 2 diabetes mellitus with other specified complication E11.69 and Abdominal pain, generalized R10.84 [place] [id number] [place] [address] 30533- 4017 May, [place] [id number] [place] [address] 34950- 0428 May, Toothache K08.8 [place] [id number] [place] [address] 65428- 0046 Apr, [facility] [address] [place] [address] [id number] Mar, Dental examination Z01.20 and Dental caries K02.9 [place] [address] 9531 Mar, [facility] [address] [place] [address] [id number] Mar, Dental examination Z01.20 and Dental caries K02.9 [facility] [id number] [place] [address] 54365- 8978 Feb, Dental abscess K04.7 and Type 2 diabetes mellitus with other specified complication E11.69 [facility] [id number] [place] [address] 04597- 5626 Feb, [facility] [address] 336699- 6224 Feb, PTSD (post-traumatic stress disorder) F43.10 ; Generalized anxiety disorder F41.1 and Depressive disorder F32.9 [facility] [id number] [place] [address] 39355- 8146 Jan, [facility] [id number] [place] [address] 02833- 9887 Jan, [facility] [id number] [place] [address] 53834- 6987 Jan, [facility] [id number] [place] [address] 94441- 7550 Jan, [facility] [id number] [place] [address] 32804- 1480 14 Dec, 2014 Vision changes 368.9 ; Diabetes 250.00 and Hypertension 401.9 [facility] [id number] [place] [address] 54763- 0753 04 Dec, 2014 Generalized anxiety disorder 300.02 ; Depressive disorder, not elsewhere classified 311 and Posttraumatic stress disorder 309.81 [facility] [id number] [place] [address] 315575- 6547 Nov, [facility] [id number] [place] [address] 60839- 5831 Oct, [facility] [address], [place] [address]- 0826 Sep, Erectile dysfunction 607.84 [facility] [address] [address]- 5236 16 Sep, 2014 [facility] [address], [place] [address]- 8246 09 Sep, 2014 Generalized anxiety disorder 300.02 ; Depressive disorder, not elsewhere classified 311 and Posttraumatic stress disorder 309.81 [facility] [address], [place] [address]- 3926 August, [facility] [id number] [place] [address] 26897- 7576 14 Jul, 2014 [facility] [address], [place] [address]- 8566 Jul, [facility] [address] [place] [address] 90545- 7206 Jun, [facility] [address], [place] [address]- 3960 26 Jun, 2014 [facility] [address], [place] [address]- 2333 Jun, [facility] [address], [place] [address]- 9736 Jun, [facility] [address], [place] [address]- 2448 10 Jun, 2014 [facility] [id number] [address]- 2546 10 Jun, 2014 [facility] [address], [place] [address]- 2106 10 Jun, 2014 [facility] [address], [place] [address]- 6506 10 Jun, 2014 [facility] [id number] 8352 10 Jun, 2014 [facility] [place] [facility] [address] [id number] [place] [address]- 6494 10 Jun, 2014 [facility] [place] [facility] [address] [id number] [place] [address]- 0424 Jun, 2014 [facility] [place] [facility] [address] [id number] [place] [address]- 8508 Jun, 2014 [facility] [place] [facility] [address] [id number] [place] [address]- 6542 Mar, [facility] [place] [facility] [address] [id number] [place] [address]- 1950 Mar, [facility] [place] [facility] [address] [id number] [place] [address]- 4538 Jan, [facility] [place] [facility] [address] [id number] [place] [address]- 1003 Jan, [facility] [place] [facility] [address] [id number] [place] [address]- 2965 15 Dec, 2013 [facility] [place] [facility] [address] [id number] [place] [address]- 2505 15 Dec, 2013 [facility] [place] [facility] [address] [id number] [place] [address]- 4767 15 Dec, 2013 [facility] [place] [facility] [address] [id number], [place] [address]- 2125 15 Dec, 2013 [facility] [place] [facility] [address] [id number], [place] [address]- 6647 Dec, 2013 [facility] [place] [facility] [address] [id number] [place] [address]- 8056 Dec, 2013 [facility] [place] [facility] [address] [id number] [place] [address]- 4713 Dec, 2013 [facility] [place] [facility] [address] [id number], [place] [address]- 2493 Dec, 2013 [facility] [place] [facility] [address] [id number], [place] [address]- 4391 Dec, [facility] [place] [facility] [address] [id number] [place] [address]- 4899 Dec, [facility] [place] [facility] [address] [id number] [place] [address]- 4248 Nov, [facility] [place] [facility] [address] [id number] [place] [address]- 0408 Nov, [facility] [place] [facility] [address] [id number] [place] [address]- 7246 Oct, [facility] [place] [facility] [address] [id number] [place] [address]- 1787 Oct, [facility] [place] [facility] [address] [id number] [place] [address]- 2956 Oct, [facility] [place] [facility] [address] [id number] [place] [address]- 4082 Oct, [facility] [place] [facility] [address] [id number] [place] [address]- 0126 Oct, [facility] [place] [facility] [address] [id number] [place] [address]- 1203 Oct, [facility] [place] [facility] [address] [id number] [place] [address]- 8436 Sep, [facility] [place] [facility] [address] [id number] [place] [address]- 6124 Sep, [facility] [place] [facility] [address] [id number] [place] [address]- 8565 Sep, [facility] [place] [facility] [address] [id number] [place] [address]- 6721 Sep, [facility] [place] [facility] [address] [id number] [place]- 2277 August, [facility] [place] [facility] [address] [id number] [place] [address]- 5750 August, [facility] [place] [facility] [address] [id number] [place] [address]- 1189 August, [facility] [place] [facility] [address] [id number] [place] [address]- 1975 August, [facility] [place] [facility] [address] [id number] [place] [address]- 7021 August, [facility] [place] [facility] [address] [id number] [place] [address]- 7563 Jul, [facility] [place] [facility] [address] [id number] [place] [address]- 9127 Jul, [facility] [place] [facility] [address] [id number] [place] [address]- 3356 Jul, [facility] [place] [facility] [address] [id number] [place] [address]- 4565 Jul, [facility] [place] [facility] [address] [id number] [place] [address]- 8394 Jul, [facility] [place] [facility] [address] [id number] [place] [address]- 5302 Jul, [facility] [place] [facility] [address] [id number] [place] [address]- 7911 May, [facility] [place] [facility] [address] [id number] [place] [address]- 4150 May, [facility] [place] [facility] [address] [id number] [place] [address]- 3932 Apr, [facility] [place] [facility] [address] [id number] [place] [address]- 9553 Apr, [facility] [place] [facility] [address] [id number] [place] [address]- 3130 Apr, [facility] [place] [facility] [address] [id number] [place] [address]- 7093 Apr, [facility] [place] [facility] [address] [id number] [place] [address]- 3022 Apr, [facility] [place] [facility] [address] [id number] [place] [address]- 7589 Apr, [facility] [place] [facility] [address] [id number] [place] [address]- 8101 Feb, [facility] [place] [facility] [address] [id number] [place] 5493 Feb, [facility] [place] [facility] [address] [id number] [place] [address]- 4304 Feb, [facility] [place] [facility] [address] [id number] [place] [address]- 7012 Feb, [facility] [place] [facility] [address] [id number] [place] [address]- 8697 Feb, [facility] [place] [facility] [address] [id number] [place] [address]- 6605 Feb, [facility] [place] [facility] [address] [id number] [place] [address]- 3007 Jan, [facility] [place] [facility] [address] [id number] [place] [address]- 9906 Dec, [facility] [place] [facility] [address] [id number] [place] [address]- 0808 Oct, [facility] [place] [facility] [address] [id number], [place] [address]- 7861 August, [facility] [place] [facility] [address] [id number], [place] [address]- 7570 August, [facility] [place] [facility] [address] [id number] [place] [address]- 9379 August, [facility] [place] [facility] [address] [id number], [place] [address]- 9833 August, [facility] [place] [facility] [address] [id number] [place] [address]- 6928 Jul, [facility] [place] [facility] [address] [id number] [place] [address]- 4472 23 Jul, 2012 [facility] [address] [id number] [place] [address]- 5416 18 Jul, 2012 [facility] [address] [id number] [place] [address]- 8626 18 Jul, 2012 [facility] [address] [id number] [place] [address]- 3616 16 Jul, 2012 [facility] [address] [id number] [place] [address]- 1555 20 Jun, 2012 [facility] [address] [id number] [place] [address]- 0081 20 Jun, 2012 [facility] [address] [id number] [place] [address]- 0218 15 Jun, 2012 [facility] [address] [id number] [place] [address]- 5960 13 Jun, 2012 [facility] [address] [id number] [place] [address]- 7764 22 May, 2012 [facility] [address] [id number] [place] [address] 13 May, 2012 [facility] [address] [id number] [place] [address] 15 Apr, 2012 [facility] [address] [id number] [place] [address] 26 Mar, 2012 [facility] [address] [id number] [place] [address] 26 Mar, 2012 [facility] [address] [id number] [place] 14 Mar, 2012 [facility] [address] [id number] [place] [address] 14 Mar, 2012 [facility] [address] [id number] [place] [address] Mar, [facility] [place] [facility] [address] [id number] [place] [address] 14 Mar, 2012 [facility] [place] [facility] [address] [id number] [place] [address] Mar, [facility] [place] [facility] [address] [id number] [place] [address] Mar, [facility] [place] [facility] [address] [id number] [place] [address] Mar, [facility] [place] [facility] [address] [id number] [place] [address] Feb, [facility] [place] [facility] [address] [id number] [place] [address] Feb, [facility] [place] [facility] [address] [id number] [place] [address] Feb, [facility] [place] [facility] [address] [id number], [place] [address] Feb, [facility] [place] [facility] [address] [id number] [place] [address] Feb, [facility] [place] [facility] [address] [facility] [id number], [place] [address] Feb, [facility] [place] [facility] [address] [facility] [id number], [place] [address] Feb, [facility] [place] [facility] [address] [id number], [place] [address] Feb, [facility] [place] [facility] [address] [id number], [place] [address] Jan, [facility] [place] [facility] [address] [id number], [place] [address] Jan, [facility] [place] [facility] [address] [facility] [id number], [place] [address] Jan, [facility] [place] [facility] [address] [id number], [place] [address] Jan, [facility] [place] [facility] [address] [id number] [place] [address] Jan, [facility] [place] [facility] [address] [id number] [place] [address] Jan, [facility] [place] [facility] [address] [id number] [place] [address] 114[address] Jan, [facility] [place] [facility] [address] [id number] [place] [address] Jan, [facility] [place] [facility] [address] [id number] [place] [address], [place] [address]- [address] Jan, [facility] [place] [facility] [address] [id number] [place] [address] Jan, [facility] [place] [facility] [address] [facility] [id number] [place] [address]- [address] Dec, [facility] [place] [facility] [address] [id number] [place] [address] Dec, [facility] [place] [facility] [address] [id number] [place] [address] Dec, [facility] [place] [facility] [address] [facility] [id number] [place] [address] Nov, [facility] [place] [facility] [address] [id number] [place] [address] Nov, [facility] [place] [facility] [address] [id number] [place] [address]697 Nov, [facility] [place] [facility] [address] [id number] [place] [address] Nov, [facility] [place] [facility] [address] [facility] [id number] [place] [address] Oct, [facility] [place] [facility] [address] [facility] [id number] [place] [address] Oct, [facility] [place] [facility] [address] [facility] [id number] [place] [address] Sep, [facility] [address] [facility] [id number], [place] [address] Sep, [facility] [address] [facility] [id number][place] [address] Apr, [facility] [address] [facility] [id number][place] [address] Apr, IMMUNIZATIONS No Known Immunizations SOCIAL HISTORY Never Assessed REASON FOR VISIT PALS-rexulti PLAN OF CARE VITAL SIGNS MEDICATIONS Medication Instructions Dosage Frequency Start Date End Date Duration Status Rexulti 2 MG Orally Once a day 1 tablet 24h Jun, 90 days Active RESULTS No Results PROCEDURES No Known procedures INSTRUCTIONS MEDICATIONS ADMINISTERED No Known Medications MEDICAL (GENERAL) HISTORY Type Description Date Medical History hypertension Medical History hyperlipidemia Medical History psychiatric disorders Medical History Type 2 diabetes Surgical History dental surgery Hospitalization History pneumonia 10/2006
--- OUTSIDE RECORDS SUMMARY | 2017-11-21 16:17 | XMS REPORT ---
Author Author FAUSTO WES Organization [facility] Address [address] [place] [address] Care Team Providers Care Sales Trainee Name Role Phone JENIFFERWES ACOSTA Unavailable PROBLEMS Type Condition ICD9-CM Code [id number] Code Onset Dates Condition Status SNOMED Code Problem Major depressive disorder, single episode, unspecified F32.9 Active 025308973 Problem Depression 311 Active 33940431 Problem Schizotypal disorder F21 Active 19642376 Problem Hypertension, benign I10 Active 58858222 Problem Bipolar 1 disorder F31.9 Active 201505088 Problem Anxiety F41.9 Active 85251712 Problem Severe episode of recurrent major depressive disorder, with psychotic features F33.3 Active 48839231 Problem Generalized anxiety disorder F41.1 Active 78344945 Problem Controlled type 2 diabetes mellitus without complication, without long -term current use of insulin E11.9 Active 999576791 Problem Uncontrolled type 2 diabetes mellitus without complication, without long-term current use of insulin E11.65 Active 947689675 Problem Seasonal allergic rhinitis due to pollen J30.1 Active 32857101 Problem Low back pain of thoracolumbar region with sciatica M54.40 Active 510002960 ALLERGIES Substance Reaction Event Type Date Status Zyban rash Drug Allergy Jun, Active Lipitor Unknown Drug Allergy Jun, Active ENCOUNTERS Encounter Location Date Diagnosis [facility] [id number], [place] [address] Sep, PTSD (post-traumatic stress disorder) F43.10 and Severe episode of recurrent major depressive disorder, with psychotic features F33.3 [facility] [id number], [place] [address] Sep, Acute upper back pain M54.9 and BMI 40.0-44.9, adult Z68.41 [facility] [id number] [place] [address] 22168- 4808 August, [address] [address], [place] [address] Jul, Severe episode of recurrent major depressive disorder, with psychotic features F33.3 ; Generalized anxiety disorder F41.1 and BMI 40.0-44.9 , adult Z68.41 [place] [id number] [place] [address] 39549- 9729 Jul, Type 2 diabetes mellitus with other specified complication E11.69 and Encounter for immunization Z23 [place] [id number] [place] [address] 32351- 8724 Jul, [place] [id number] [place] [address] 13953- 3870 Jun, [place] [id number] [place] [address] 86264- 2828 Jun, [place] [id number] [place] [address] 30245- 9356 Jun, BMI 40.0-44.9, adult Z68.41 ; Severe episode of recurrent major depressive disorder, with psychotic features F33.3 and Generalized anxiety disorder F41.1 [place] [address], [place] [address] 15 Jun, 2017 BMI 40.0-44.9, adult Z68.41 and Severe episode of recurrent major depressive disorder, with psychotic features F33.3 [place] [address] [address], [place] [address] 14 Jun, 2017 Major depressive disorder, single episode, unspecified F32.9 [place] [id number] [place] [address] 23630- 9222 14 Jun, 2017 [address] [address], [place] [address] Jun, BMI 40.0-44.9, adult Z68.41 and Severe episode of recurrent major depressive disorder, with psychotic features F33.3 [place] [address], [place] [address] 1518 13 Jun, 2017 BMI 40.0-44.9, adult Z68.41 ; Type 2 diabetes mellitus with other specified complication E11.69 and Bronchitis J40 [place] [id number], [place] [address] 57[address] Jun, [place] [id number] [place] [address] 74921- 6752 Mar, [place] [id number] [place] [address] 61948- 4370 Feb, Type 2 diabetes mellitus with other specified complication E11.69 ; Generalized anxiety disorder F41.1 and Hypertension, benign I10 [place] [id number] [place] [address] 76444- 7770 Jan, Seasonal allergic rhinitis due to pollen J30.1 ; Viral gastroenteritis A08.4 and PTSD (post-traumatic stress disorder) F43.10 [place] [id number] [place] [address] 07620- 0572 Sep, [place] [id number] [place] [address] 79228- 8233 Sep, Erythema L53.9 [place] [id number] [place] [address] 30732- 2468 August, Type 2 diabetes mellitus with other specified complication E11.69 and Hypertension, benign I10 [address] [id number] [place] [address] 41943- 5347 August, Viral gastroenteritis A08.4 ; Type 2 diabetes mellitus with other specified complication E11.69 ; Hypertension, benign I10 and PTSD (post- traumatic stress disorder) F43.10 [place] [address] [address], [place] [address] 26[address] August, [place] [id number], [place] [address] 9260 August, PTSD (post-traumatic stress disorder) F43.10 [facility] [address], [place] [address]- 3[address] Jul, [facility] [id number] [place] [address] 79426- 6223 Jun, Type 2 diabetes mellitus with other specified complication E11.69 [facility] [id number] [place] [address] 65637 -3178 May, Body aches R52 ; Sore throat J02.9 ; Other viral agents as the cause of diseases classified elsewhere B97.89 and Acute upper respiratory infection, unspecified J06.9 [place] [id number] [place] [address] 75899- 7182 May, [place] [id number] [place] [address] 24480- 5208 May, Seasonal allergic rhinitis due to pollen J30.1 and Controlled type 2 diabetes mellitus without complication, without long-term current use of insulin E11.9 [place] [id number] [place] [address] 61588- 6595 02 May, 2016 PTSD (post-traumatic stress disorder) F43.10 and Generalized anxiety disorder F41.1 [place] [id number] [place] [address] 20183- 5438 Apr, Type 2 diabetes mellitus with other specified complication E11.69 ; Bronchitis J40 and Low back pain of thoracolumbar region with sciatica M54.40 [facility] [id number] [place] [address] 16969- 4903 Apr, PTSD (post-traumatic stress disorder) F43.10 and Uncontrolled type 2 diabetes mellitus without complication, without long-term current use of insulin E11.65 [place] [id number] [place] [address] 79166- 4417 Mar, Type 2 diabetes mellitus with other specified complication E11.69 ; Urinary retention R33.9 and Urinary frequency R35.0 [address] [address] [id number] [place] [address]- 0861 Mar, Bronchitis J40 [facility] [address] [address]- [address]18 Feb, Controlled type 2 diabetes mellitus without complication, without long-term current use of insulin E11.9 and Hypertension, benign I10 [place] [address] 04916- 8047 Feb, PTSD (post-traumatic stress disorder) F43.10 [place] [address] 95052- 0045 Jan, [place] [address] 38243- 1623 Jan, Uncontrolled type 2 diabetes mellitus without complication, without long-term current use of insulin E11.65 [place] [address] 41462- 3804 Dec, Diabetes type 2, controlled E11.9 ; Periodontal abscess K05.21 and Sinusitis, unspecified chronicity, unspecified location J32.9 [place] [address] 83193- 4447 Dec, [place] [id number] [place] [address] 67831- 7593 Dec, [place] [id number] [place] [address] 91586- 3580 Nov, Chronic fatigue R53.82 [place] [address] 83691- 9506 Oct, Common wart B07.8 [place] [address] 47445- 0783 Sep, Type 2 diabetes mellitus with other specified complication E11.69 ; Common wart B07.8 and Dermatofibroma D23.9 [place] [address] 46787- 1146 Sep, PTSD (post-traumatic stress disorder) F43.10 and Generalized anxiety disorder F41.1 [place] [id number] [place] [address] 36883- 7110 Jul, [facility] [id number] [place] [address] 18312- 7552 Jul, [place] [address] 75930- 8515 Jul, PTSD (post-traumatic stress disorder) F43.10 and Generalized anxiety disorder F41.1 [place] [id number] [place] [address] 02871- 6724 Jul, [place] [id number] [place] [address] 98498- 6427 Jul, Obesity, morbid E66.01 ; Diabetes type 2, controlled E11.9 ; Hypertension, benign I10 and Arthritis M19.90 [place] [id number] [place] [address] 99911- 4599 Jul, Type 2 diabetes mellitus without complications E11.9 [place] [id number] [place] [address] 29583- 0611 17 Jun, 2015 Type 2 diabetes mellitus with other specified complication E11.69 [place] [id number] [place] [address] 70385- 4333 Jun, Type 2 diabetes mellitus with other specified complication E11.69 and Abdominal pain, generalized R10.84 [place] [id number] [place] [address] 48270- 1679 May, [place] [id number] [place] [address] 25412- 5466 May, Toothache K08.8 [place] [id number] [place] [address] 82235- 8318 Apr, [facility] [address] [id number] Mar, Dental examination Z01.20 and Dental caries K02.9 [facility] [address] [address] Mar, [facility] [id number] [address] Mar, Dental examination Z01.20 and Dental caries K02.9 [facility] [id number] [place] [address] 65013- 6385 Feb, Dental abscess K04.7 and Type 2 diabetes mellitus with other specified complication E11.69 [facility] [address], [place] [address]- 7303 Feb, [facility] [id number] [place] [address] 96209- 5959 Feb, PTSD (post-traumatic stress disorder) F43.10 ; Generalized anxiety disorder F41.1 and Depressive disorder F32.9 [facility] [id number] [place] [address] 89198- 6166 Jan, [facility] [id number] [place] [address] 59251- 6038 Jan, [facility] [id number] [place] [address] 69799- 7573 Jan, [facility] [address], [place] [address]- 3246 Jan, [facility] [id number] [place] [address] 77572- 4244 Dec, Vision changes 368.9 ; Diabetes 250.00 and Hypertension 401.9 [facility] [id number] [place] [address] 96791- 7834 04 Dec, 2014 Generalized anxiety disorder 300.02 ; Depressive disorder, not elsewhere classified 311 and Posttraumatic stress disorder 309.81 [facility] [address], [place] [address]- 8637 Nov, [facility] [address], [place] [address]- 3286 08 Oct, 2014 [facility] [address], [place] [address]- 2616 Sep, Erectile dysfunction 607.84 [facility] [place] [address], [place] [address]- 2546 16 Sep, 2014 [facility] [id number] [place] [address] 73323- 8106 Sep, Generalized anxiety disorder 300.02 ; Depressive disorder, not elsewhere classified 311 and Posttraumatic stress disorder 309.81 [facility] [id number] [place] [address] 98298- 4386 August, [facility] [address], [place] [address]- 8146 14 Jul, 2014 [facility] [address], [place] [address]- 3266 Jul, [facility] [address], [place] [address]- 2339 Jun, [facility] [address], [place] [address]- 2277 Jun, [facility] [address], [place] [address]- 1896 Jun, [facility] [address], [place] [address]- 6676 Jun, [facility] [address], [place] [address]- 3279 10 Jun, 2014 [facility] [id number], [place] [address]- 4145 10 Jun, 2014 [facility] [place] [address], [place] [address]- 0604 10 Jun, 2014 [facility] [id number], [place] [address]- 6746 Jun, [facility] [place] [facility] [address] [id number] [place] [address]- 5552 10 Jun, 2014 [facility] [place] [facility] [address] [id number] [place] [address]- 9511 10 Jun, 2014 [facility] [place] [facility] [address] [id number] [place] [address]- 6890 02 Jun, 2014 [facility] [place] [facility] [address] [id number] [place] [address]- 8116 02 Jun, 2014 [facility] [place] [facility] [address] [id number] [place] [address]- 3599 Mar, [facility] [place] [facility] [address] [id number] [place] [address]- 4919 Mar, [facility] [place] [facility] [address] [id number] [place] [address]- 4161 Jan, [facility] [place] [facility] [address] [id number] [place] [address]- 9160 Jan, [facility] [place] [facility] [address] [id number] [place] [address]- 7947 15 Dec, 2013 [facility] [place] [facility] [address] [id number] [place] [address]- 254 15 Dec, 2013 [facility] [place] [facility] [address] [id number] [place] [address]- 2547 15 Dec, 2013 [facility] [place] [facility] [address] [id number] [place] [address]- 2545 15 Dec, 2013 [facility] [place] [facility] [address] [id number] [place] [address] 2545 02 Dec, 2013 [facility] [place] [facility] [address] [id number] [place] [address]- 254 02 Dec, 2013 [facility] [place] [facility] [address] [id number] [place] [address]- 7833 02 Dec, 2013 [facility] [place] [facility] [address] [id number] [place] [address]- 2544 Dec, [facility] [place] [facility] [address] [id number] [place] [address]- 3747 Dec, [facility] [place] [facility] [address] [id number] [place] [address]- 8956 Dec, [facility] [place] [facility] [address] [id number] [place] [address]- 9307 Nov, [facility] [place] [facility] [address] [id number] [place] [address]- 5402 Nov, [facility] [place] [facility] [address] [id number] [place] [address]- 4681 Oct, [facility] [place] [facility] [address] [id number] [place] [address]- 5127 Oct, [facility] [place] [facility] [address] [id number] [place] [address]- 5820 Oct, [facility] [place] [facility] [address] [id number] [place] [address]- 7423 Oct, [facility] [place] [facility] [address] [id number] [place] [address]- 8954 Oct, [facility] [place] [facility] [address] [id number] [place] [address]- 9420 Oct, [facility] [place] [facility] [address] [id number], [place] [address]- 8654 Sep, [facility] [place] [facility] [address] [id number], [place] [address]- 3890 Sep, [facility] [place] [facility] [address] [id number] [place] [address]- 3953 Sep, [facility] [place] [facility] [address] [id number], [place] [address]- 9152 Sep, [facility] [place] [facility] [address] [id number] [place] [address]- 3038 August, [facility] [place] [facility] [address] [id number] [place] [address]- 1144 August, [facility] [place] [facility] [address] [id number] [place] [address]- 6993 August, [facility] [place] [facility] [address] [id number] [place] [address]- 8452 August, [facility] [place] [facility] [address] [id number] [place] [address]- 1500 August, [facility] [place] [facility] [address] [id number] [place] [address]- 2140 Jul, [facility] [place] [facility] [address] [id number] [place] [address]- 6940 Jul, [facility] [place] [facility] [address] [id number] [place] [address]- 1245 Jul, [facility] [place] [facility] [address] [id number] [place] [address]- 9637 Jul, [facility] [place] [facility] [address] [id number] [place] [address]- 7678 Jul, [facility] [place] [facility] [address] [id number] [place] [address]- 5733 Jul, [facility] [place] [facility] [address] [id number] [place] [address]- 2583 May, [facility] [place] [facility] [address] [id number] [place] [address]- 9703 May, [facility] [place] [facility] [address] [id number] [place] [address]- 7423 Apr, [facility] [place] [facility] [address] [id number] [place] [address]- 2617 Apr, [facility] [place] [facility] [address] [id number] [place] [address]- 4856 Apr, [facility] [place] [facility] [address] [id number] [place] [address]- 5417 Apr, [facility] [address] [id number] [place] [address]- 8643 Apr, [facility] [place] [facility] [address] [id number] [place] [address]- 8532 Apr, [facility] [place] [facility] [address] [id number] [place] [address]- 1611 Feb, [facility] [place] [facility] [address] [id number] [place] [address]- 1040 Feb, [facility] [address] [id number] [place] [address]- 3136 Feb, [facility] [place] [facility] [address] [id number] [place] [address]- 8933 Feb, [facility] [place] [facility] [address] [id number] [place] [address]- 2205 Feb, [facility] [place] [facility] [address] [id number] [place] [address]- 6588 Feb, [facility] [place] [facility] [address] [id number] [place] [address]- 7565 Jan, [facility] [place] [facility] [address] [id number], [place] [address]- 9981 Dec, [facility] [place] [facility] [address] [id number], [place] [address]- 8905 Oct, [facility] [place] [facility] [address] [id number], [place] [address]- 4266 August, [facility] [place] [facility] [address] [id number] [place] [address]- 0807 August, [facility] [place] [facility] [address] [id number], [place] [address]- 5882 August, [facility] [place] [facility] [address] [id number], [place] [address]- 8787 August, [facility] [place] [facility] [address] [id number], [place] [address]- 4628 24 Jul, 2012 [facility] [address] [id number] [place] [address]- 3567 23 Jul, 2012 [facility] [address] [id number] [place] [address]- 9135 18 Jul, 2012 [facility] [address] [id number] [place] [address]- 4512 18 Jul, 2012 [facility] [address] [id number] [place] [address]- 7898 16 Jul, 2012 [facility] [address] [id number] [place] [address]- 8568 20 Jun, 2012 [facility] [address] [id number] [place] [address]- 5668 20 Jun, 2012 [facility] [address] [facility] [id number] [place] [address]- 2757 15 Jun, 2012 [facility] [address] [id number] [place] [address]- 0932 13 Jun, 2012 [facility] [address] [facility] [id number] [place] [address]- 5549 22 May, 2012 [facility] [address] [facility] [id number] [place] [address]- 5102 May, [facility] [address] [facility] [id number] [place] [address]- 7202 15 Apr, 2012 [facility] [address] [id number] [place] [address]- 1920 26 Mar, 2012 [facility] [address] [id number] [place] [address] 26 Mar, 2012 [facility] [address] [id number] [place] [address] 14 Mar, 2012 [facility] [address] [facility] [id number] [place] [address] 14 Mar, 2012 [facility] [place] [facility] [address] [id number] [place] [address] 14 Mar, 2012 [facility] [place] [facility] [address] [id number] [place] [address] 14 Mar, 2012 [facility] [place] [facility] [address] [id number] [place] [address] Mar, [facility] [place] [facility] [address] [id number] [place] [address] Mar, [facility] [place] [facility] [address] [id number] [place] [address] Mar, [facility] [place] [facility] [address] [id number] [place] [address] Feb, [facility] [place] [facility] [address] [id number] [place] [address] Feb, [facility] [place] [facility] [address] [id number] [place] [address] Feb, [facility] [place] [facility] [address] [id number] [place] [address] Feb, [facility] [place] [facility] [address] [id number] [place] [address] Feb, [facility] [place] [facility] [address] [id number] [place] [address] Feb, [facility] [place] [facility] [address] [id number] [place] [address] Feb, [facility] [place] [facility] [address] [id number] [place] [address] Feb, [facility] [place] [facility] [address] [id number] [place] [address] Jan, [facility] [place] [facility] [address] [id number] [place] [address] Jan, [facility] [place] [facility] [address] [id number] [place] [address] Jan, [facility] [place] [facility] [address] [id number] [place] [address] Jan, [facility] [place] [facility] [address] [id number] [place] [address] Jan, [facility] [place] [facility] [address] [id number] [place] [address] Jan, [facility] [place] [facility] [address] [id number] [place] [address] Jan, [facility] [place] [facility] [address] [id number] [place] [address] Jan, [facility] [place] [facility] [address] [id number] [place] [address] Jan, [facility] [place] [facility] [address] [id number] [place] [address] Jan, [facility] [place] [facility] [address] [id number], [place] [address] Dec, [facility] [place] [facility] [address] [id number] [place] [address] Dec, [facility] [place] [facility] [address] [id number] [place] [address] Dec, [facility] [place] [facility] [address] [id number], [place] [address] Nov, [facility] [place] [facility] [address] [id number], [place] [address] Nov, [facility] [place] [facility] [address] [id number] [place] [address] Nov, [facility] [place] [facility] [address] [id number], [place] [address] Nov, [facility] [place] [facility] [address] [id number], [place] [address] Oct, [facility] [place] [facility] [address] [facility] [id number] [place] [id number] Oct, [facility] [address] [facility] [id number], [place] [address] Sep, [facility] [facility] [address] [facility] [id number] [id number] Sep, [facility] [address] [facility] [id number], [place] [address] Apr, [facility] [address] [facility] [id number], [place] [address] Apr, IMMUNIZATIONS No Known Immunizations SOCIAL HISTORY Never Assessed REASON FOR VISIT intake PLAN OF CARE Activity Details Follow Up 1 Week Reason: VITAL SIGNS Height 75 in 2017-07-11 Weight 335.0 lbs 2017-07-11 Heart Rate 84 bpm 2017-07-11 Respiratory Rate 24 2017-07-11 BMI 41.87 kg/m2 2017-07-11 Blood pressure systolic 138 mmHg 2017-07-11 Blood pressure diastolic 90 mmHg 2017-07-11 MEDICATIONS Medication Instructions Dosage Frequency Start Date End Date Duration Status Fish Oil 1000 MG Orally twice a day. please voucher 2 capsules Jul, Not-Taking Toprol XL 50 mg Orally Once a day 1 tablet 24h Jun, 90 days Active ProAir HFA 108 (90 Base) MCG/ACT Inhalation every 4-6 hours 2 puffs as needed Jul, 30 days Active Zoloft 50 MG Orally Once a day 1 tablet 24h Jun, 30 day(s) Active HydrOXYzine HCl 25 MG Orally TID PRN 1 tablet Feb, Active Rexulti 2 MG Orally Once a day 1 tablet 24h Jun, 30 day(s) Active Metformin HCl 1000 MG Orally 2 times a day 1 tablet with meals 12h 30 days Not-Taking Pravastatin Sodium 20 mg Orally Once a day. 1 tablet Jan, 90 days Active Rexulti 1 MG Orally Once a day 1 tablet 24h Jun, 7 days Active Topamax 100 MG Orally Once a day 1 tablet 24h 19 Jun, 2014 30 days Not -Taking Rexulti 0.5 MG Orally Once a day 1 tablet 24h Jun, 7 days Active Zoloft 100 MG Orally Once a day 1.5 tablet 24h Mar, 30 days Active RESULTS No Results PROCEDURES No Known procedures INSTRUCTIONS MEDICATIONS ADMINISTERED No Known Medications MEDICAL (GENERAL) HISTORY Type Description Date Medical History hypertension Medical History hyperlipidemia Medical History psychiatric disorders Medical History Type 2 diabetes Surgical History dental surgery Hospitalization History pneumonia 10/2006
--- OUTSIDE RECORDS SUMMARY | 2017-11-21 16:18 | XMS REPORT ---
Author Author FAUSTO WES Organization [facility] [place] Address [address] [place] [address] Care Team Providers Care Undraped Artist Model Name Role Phone JENIFFERCAREN ACOSTAA Unavailable PROBLEMS Type Condition ICD9-CM Code EBO78-GQ Code Onset Dates Condition Status SNOMED Code Problem Major depressive disorder, single episode, unspecified F32.9 Active 166784648 Problem Depression 311 Active 71290441 Problem Schizotypal disorder F21 Active 49699363 Problem Hypertension, benign I10 Active 51521476 Problem Bipolar 1 disorder F31.9 Active 855911184 Problem Anxiety F41.9 Active 86287987 Problem Severe episode of recurrent major depressive disorder, with psychotic features F33.3 Active 97967371 Problem Generalized anxiety disorder F41.1 Active 96113024 Problem Controlled type 2 diabetes mellitus without complication, without long -term current use of insulin E11.9 Active 701790950 Problem Uncontrolled type 2 diabetes mellitus without complication, without long-term current use of insulin E11.65 Active 125739734 Problem Seasonal allergic rhinitis due to pollen J30.1 Active 68978534 Problem Low back pain of thoracolumbar region with sciatica M54.40 Active 670079896 ALLERGIES No Information ENCOUNTERS Encounter Location Date Diagnosis [facility], [place] [id number] [place] [address] 14015- 4779 Sep, PTSD (post-traumatic stress disorder) F43.10 and Severe episode of recurrent major depressive disorder, with psychotic features F33.3 [facility] [place] [id number] [address]54 Sep, Acute upper back pain M54.9 and BMI 40.0-44.9, adult Z68.41 [facility] [place] [address] [address] August, [facility] [place] [id number] [address] 5138 19 Jul, 2017 Severe episode of recurrent major depressive disorder, with psychotic features F33.3 ; Generalized anxiety disorder F41.1 and BMI 40.0-44.9 , adult Z68.41 [place] [id number] [place] [address] 83127- 1951 18 Jul, 2017 Type 2 diabetes mellitus with other specified complication E11.69 and Encounter for immunization Z23 [place] [id number] [place] [address] 26958- 7057 17 Jul, 2017 [place] [id number] [place] [address] 70962- 9430 Jun, [place] [id number] [place] [address] 38301- 1024 Jun, [place] [id number] [place] [address] 99045- 8568 Jun, BMI 40.0-44.9, adult Z68.41 ; Severe episode of recurrent major depressive disorder, with psychotic features F33.3 and Generalized anxiety disorder F41.1 [place] [id number] [place] [address] 07759- 4902 15 Jun, 2017 BMI 40.0-44.9, adult Z68.41 and Severe episode of recurrent major depressive disorder, with psychotic features F33.3 [place] [address] [place] [address] 89017- 2719 14 Jun, 2017 Major depressive disorder, single episode, unspecified F32.9 [place] [address] [place] [address] 67901- 6066 14 Jun, 2017 [place] [id number] [place] [address] 05910- 6316 14 Jun, 2017 BMI 40.0-44.9, adult Z68.41 and Severe episode of recurrent major depressive disorder, with psychotic features F33.3 [place] [id number] [place] [address] 76406- 8840 Jun, BMI 40.0-44.9, adult Z68.41 ; Type 2 diabetes mellitus with other specified complication E11.69 and Bronchitis J40 [place] [id number] [place] [address] 30033- 2637 Jun, [place] [id number] [place] [address] 65885- 5845 Mar, [place] [id number] [place] [address] 83517- 0392 Feb, Type 2 diabetes mellitus with other specified complication E11.69 ; Generalized anxiety disorder F41.1 and Hypertension, benign I10 [place] [address] [address]135- 8602 Jan, Seasonal allergic rhinitis due to pollen J30.1 ; Viral gastroenteritis A08.4 and PTSD (post-traumatic stress disorder) F43.10 [place] [id number] [place] [address] 01944- 1257 Sep, [place] [id number] [place] [address] 20161- 6720 Sep, Erythema L53.9 [place] [id number] [place] [address] 62017- 9137 August, Type 2 diabetes mellitus with other specified complication E11.69 and Hypertension, benign I10 [place] [id number] [place] [address] 47651- 6282 August, Viral gastroenteritis A08.4 ; Type 2 diabetes mellitus with other specified complication E11.69 ; Hypertension, benign I10 and PTSD (post- traumatic stress disorder) F43.10 [place] [id number] [place] [address] 47263- 9699 August, [place] [id number] [place] [address] 39510- 0201 August, PTSD (post-traumatic stress disorder) F43.10 [place] [id number] [place] [address] 72898- 4411 Jul, [facility] [place] [address] [place] [address] 30600- 7862 Jun, Type 2 diabetes mellitus with other specified complication E11.69 [facility] [address] [place] [address] 36453 -7245 May, Body aches R52 ; Sore throat J02.9 ; Other viral agents as the cause of diseases classified elsewhere B97.89 and Acute upper respiratory infection, unspecified J06.9 [facility] [place] [id number] [place] [address] 57574- 4341 May, [place] [id number] [place] [address] 30620- 8212 May, Seasonal allergic rhinitis due to pollen J30.1 and Controlled type 2 diabetes mellitus without complication, without long-term current use of insulin E11.9 [place] [id number] [place] [address] 92415- 3306 02 May, 2016 PTSD (post-traumatic stress disorder) F43.10 and Generalized anxiety disorder F41.1 [place] [id number] [place] [address] 33688- 6543 Apr, Type 2 diabetes mellitus with other specified complication E11.69 ; Bronchitis J40 and Low back pain of thoracolumbar region with sciatica M54.40 [facility] [place] [address] [place] [address] 47499- 3804 Apr, PTSD (post-traumatic stress disorder) F43.10 and Uncontrolled type 2 diabetes mellitus without complication, without long-term current use of insulin E11.65 [place] [id number] [place] [address] 39015- 9765 Mar, Type 2 diabetes mellitus with other specified complication E11.69 ; Urinary retention R33.9 and Urinary frequency R35.0 [id number] [place] [address] 75881- 5618 Mar, Bronchitis J40 [place] [address] [place] [address] 91714- 6434 28 Feb, 2016 Controlled type 2 diabetes mellitus without complication, without long-term current use of insulin E11.9 and Hypertension, benign I10 [place] [id number] [place] [address] 54665- 7837 03 Feb, 2016 PTSD (post-traumatic stress disorder) F43.10 [place] [id number] [place] [address] 17530- 5999 Jan, [place] [id number] [place] [address] 00064- 8692 Jan, Uncontrolled type 2 diabetes mellitus without complication, without long-term current use of insulin E11.65 [place] [id number] [place] [address] 87500- 8420 Dec, Diabetes type 2, controlled E11.9 ; Periodontal abscess K05.21 and Sinusitis, unspecified chronicity, unspecified location J32.9 [place] [id number] [place] [address] 10817- 9746 21 Dec, 2015 [place] [id number] [place] [address] 57626- 5213 Dec, [place] [id number] [place] [address] 46102- 4958 Nov, Chronic fatigue R53.82 [place] [id number] [place] [address] 06639- 5026 Oct, Common wart B07.8 [place] [id number] [place] [address] 90589- 0963 Sep, Type 2 diabetes mellitus with other specified complication E11.69 ; Common wart B07.8 and Dermatofibroma D23.9 [place] [address] [place] [address] 27471- 0483 Sep, PTSD (post-traumatic stress disorder) F43.10 and Generalized anxiety disorder F41.1 [place] [address] [address]- 8420 Jul, [facility] [place] [id number] [place] [address] 31872- 2010 Jul, [place] [id number] [place] [address] 88835- 6697 Jul, PTSD (post-traumatic stress disorder) F43.10 and Generalized anxiety disorder F41.1 [place] [id number] [place] [address] 41866- 8311 Jul, [place] [id number] [place] [address] 36227- 9894 Jul, Obesity, morbid E66.01 ; Diabetes type 2, controlled E11.9 ; Hypertension, benign I10 and Arthritis M19.[address] 76311- 6978 Jul, Type 2 diabetes mellitus without complications E11.9 [place] [id number] [place] [address] 41273- 6830 17 Jun, 2015 Type 2 diabetes mellitus with other specified complication E11.69 [place] [id number] [place] [address] 58810- 4651 07 Jun, 2015 Type 2 diabetes mellitus with other specified complication E11.69 and Abdominal pain, generalized R10.84 [place] [id number] [place] [address] 20401- 7394 May, [place] [id number] [place] [address] 23612- 7946 May, Toothache K08.8 [place] [id number] [place] [address] 57351- 6234 Apr, [facility] [address] [place] [address] [id number] Mar, Dental examination Z01.20 and Dental caries K02.9 [place] [address] [place] 9976 Mar, [facility] [address] [place] [address] [id number] Mar, Dental examination Z01.20 and Dental caries K02.9 [facility] [place] [id number] [place] [address] 00315- 2677 Feb, Dental abscess K04.7 and Type 2 diabetes mellitus with other specified complication E11.69 [facility] [place] [id number] [place] [address] 67591- 9388 Feb, [facility] [place] [address] 053999- 2835 Feb, PTSD (post-traumatic stress disorder) F43.10 ; Generalized anxiety disorder F41.1 and Depressive disorder F32.9 [facility] [place] [id number] [place] [address] 94204- 9729 Jan, [facility] [place] [id number] [place] [address] 90466- 9867 Jan, [facility] [place] [id number] [place] [address] 56369- 1494 Jan, [facility] [place] [id number] [place] [address] 12079- 4665 Jan, [facility] [place] [id number] [place] [address] 66306- 4193 14 Dec, 2014 Vision changes 368.9 ; Diabetes 250.00 and Hypertension 401.9 [facility] [place] [id number] [place] [address] 35447- 0076 04 Dec, 2014 Generalized anxiety disorder 300.02 ; Depressive disorder, not elsewhere classified 311 and Posttraumatic stress disorder 309.81 [facility] [place] [id number] [place] [address] 640574- 8372 Nov, [facility] [place] [id number] [place] [address] 29406- 7081 Oct, [facility] [place] [address] [address]- 7286 Sep, Erectile dysfunction 607.84 [facility] [place] [id number] [address]- 0666 16 Sep, 2014 [facility] [place] [address] [address]- 9766 09 Sep, 2014 Generalized anxiety disorder 300.02 ; Depressive disorder, not elsewhere classified 311 and Posttraumatic stress disorder 309.81 [facility] [place] [address] [address]- 0186 August, [facility] [place] [id number] [place] [address] 59654- 2186 14 Jul, 2014 [facility] [place] [address] [address]- 4236 Jul, [facility] [place] [address] [place] [address] 99485- 6456 Jun, [facility] [place] [address] [address]- 8388 26 Jun, 2014 [facility] [place] [id number] [address]- 6427 Jun, [facility] [place] [address] [address]- 8936 Jun, [facility] [place] [address] [address]- 7162 10 Jun, 2014 [facility] [place] [id number] [address]- 2546 10 Jun, 2014 [facility] [place] [address] [address]- 2716 10 Jun, 2014 [facility] [place] [address] [address]- 2806 10 Jun, 2014 [facility] [place] [id number] 0880 10 Jun, 2014 [facility] [place] [facility] [address] [id number] [place] [address]- 8797 10 Jun, 2014 [facility] [place] [facility] [address] [id number] [place] [address]- 1231 Jun, 2014 [facility] [place] [facility] [address] [id number] [place] [address]- 1407 Jun, 2014 [facility] [place] [facility] [address] [id number] [place] [address]- 8070 Mar, [facility] [place] [facility] [address] [id number] [place] [address]- 6074 Mar, [facility] [place] [facility] [address] [id number] [place] [address]- 3339 Jan, [facility] [place] [facility] [address] [id number] [place] [address]- 3904 Jan, [facility] [place] [facility] [address] [id number] [place] [address]- 5770 15 Dec, 2013 [facility] [place] [facility] [address] [id number] [place] [address]- 8608 15 Dec, 2013 [facility] [place] [facility] [address] [id number] [place] [address]- 8476 15 Dec, 2013 [facility] [place] [facility] [address] [id number] [address]- 7467 15 Dec, 2013 [facility] [place] [facility] [address] [id number] [address]- 7343 Dec, 2013 [facility] [place] [facility] [address] [id number] [place] [address]- 4185 Dec, 2013 [facility] [place] [facility] [address] [id number] [place] [address]- 8341 Dec, 2013 [facility] [place] [facility] [address] [id number] [address]- 6765 Dec, 2013 [facility] [place] [facility] [address] [id number] [address]- 7617 Dec, [facility] [place] [facility] [address] [id number] [place] [address]- 9096 Dec, [facility] [place] [facility] [address] [id number] [place] [address]- 3116 Nov, [facility] [place] [facility] [address] [id number] [place] [address]- 3929 Nov, [facility] [place] [facility] [address] [id number] [place] [address]- 9111 Oct, [facility] [place] [facility] [address] [id number] [place] [address]- 0497 Oct, [facility] [place] [facility] [address] [id number] [place] [address]- 0663 Oct, [facility] [place] [facility] [address] [id number] [place] [address]- 3311 Oct, [facility] [place] [facility] [address] [id number] [place] [address]- 6175 Oct, [facility] [place] [facility] [address] [id number] [place] [address]- 6555 Oct, [facility] [place] [facility] [address] [id number] [place] [address]- 5427 Sep, [facility] [place] [facility] [address] [id number] [place] [address]- 7442 Sep, [facility] [place] [facility] [address] [id number] [place] [address]- 2109 Sep, [facility] [place] [facility] [address] [id number] [place] [address]- 9208 Sep, [facility] [place] [facility] [address] [id number] [place] 0401 August, [facility] [place] [facility] [address] [id number] [place] [address]- 7504 August, [facility] [place] [facility] [address] [id number] [place] [address]- 8792 August, [facility] [place] [facility] [address] [id number] [place] [address]- 0189 August, [facility] [place] [facility] [address] [id number] [place] [address]- 5332 August, [facility] [place] [facility] [address] [id number] [place] [address]- 1137 Jul, [facility] [place] [facility] [address] [id number] [place] [address]- 3016 Jul, [facility] [place] [facility] [address] [id number] [place] [address]- 3844 Jul, [facility] [place] [facility] [address] [id number] [place] [address]- 5215 Jul, [facility] [place] [facility] [address] [id number] [place] [address]- 0303 Jul, [facility] [place] [facility] [address] [id number] [place] [address]- 1730 Jul, [facility] [place] [facility] [address] [id number] [place] [address]- 0128 May, [facility] [place] [facility] [address] [id number] [place] [address]- 5355 May, [facility] [place] [facility] [address] [id number] [place] [address]- 5078 Apr, [facility] [place] [facility] [address] [id number] [place] [address]- 3494 Apr, [facility] [place] [facility] [address] [id number] [place] [address]- 3857 Apr, [facility] [place] [facility] [address] [id number] [place] [address]- 6505 Apr, [facility] [place] [facility] [address] [id number] [place] [address]- 2455 Apr, [facility] [place] [facility] [address] [id number] [place] [address]- 8290 Apr, [facility] [place] [facility] [address] [id number] [place] [address]- 2899 Feb, [facility] [place] [facility] [address] [id number] [place] 5703 Feb, [facility] [place] [facility] [address] [id number] [place] [address]- 6613 Feb, [facility] [place] [facility] [address] [id number] [place] [address]- 5080 Feb, [facility] [place] [facility] [address] [id number] [place] [address]- 9478 Feb, [facility] [place] [facility] [address] [id number] [place] [address]- 1289 Feb, [facility] [place] [facility] [address] [id number] [place] [address]- 5506 Jan, [facility] [place] [facility] [address] [id number] [place] [address]- 9856 Dec, [facility] [place] [facility] [address] [id number] [place] [address]- 9099 Oct, [facility] [place] [facility] [address] [id number] [address]- 6792 August, [facility] [place] [facility] [address] [id number] [place] [address]- 0019 August, [facility] [place] [facility] [address] [id number] [place] [address]- 5237 August, [facility] [place] [facility] [address] [id number] [address]- 4943 August, [facility] [place] [facility] [address] [id number] [place] [address]- 3719 Jul, [facility] [place] [facility] [address] [id number] [place] [address]- 5056 23 Jul, 2012 [facility] [address] [id number] [place] [address]- 7076 18 Jul, 2012 [facility] [address] [id number] [place] [address]- 7126 18 Jul, 2012 [facility] [address] [id number] [place] [address]- 4946 16 Jul, 2012 [facility] [address] [id number] [place] [address]- 6071 20 Jun, 2012 [facility] [address] [id number] [place] [address]- 9346 20 Jun, 2012 [facility] [address] [id number] [place] [address]- 1885 15 Jun, 2012 [facility] [address] [id number] [place] [address]- 8661 13 Jun, 2012 [facility] [address] [id number] [place] [address] 22 May, 2012 [facility] [address] [id number] [place] [address] 13 May, 2012 [facility] [address] [id number] [place] [address] 15 Apr, 2012 [facility] [address] [id number] [place] [address] 26 Mar, 2012 [facility] [address] [id number] [place] [address] 26 Mar, 2012 [facility] [address] [id number] [place] [address] 14 Mar, 2012 [facility] [address] [id number] [place] [address] 14 Mar, 2012 [facility] [address] [id number] [place] [address] Mar, [facility] [place] [facility] [address] [id number] [place] [address] 14 Mar, 2012 [facility] [place] [facility] [address] [id number] [place] [address] Mar, [facility] [place] [facility] [address] [id number] [place] [address] Mar, [facility] [place] [facility] [address] [id number] [place] [address] Mar, [facility] [place] [facility] [address] [id number] [place] [address] Feb, [facility] [place] [facility] [address] [id number] [place] [address] Feb, [facility] [place] [facility] [address] [id number] [place] [address] Feb, [facility] [place] [facility] [address] [id number] [address] Feb, [facility] [place] [facility] [address] [id number] [place] [address] Feb, [facility] [place] [facility] [address] [facility] [id number] [address] Feb, [facility] [place] [facility] [address] [facility] [id number] [address] Feb, [facility] [place] [facility] [address] [id number] [address] Feb, [facility] [place] [facility] [address] [id number] [address] Jan, [facility] [place] [facility] [address] [id number] [address] Jan, [facility] [place] [facility] [address] [facility] [id number] [address] Jan, [facility] [place] [facility] [address] [id number] [address] Jan, [facility] [place] [facility] [address] [id number] [place] [address] Jan, [facility] [place] [facility] [address] [id number] [place] [address] Jan, [facility] [place] [facility] [address] [id number] [place] [address] Jan, [facility] [place] [facility] [address] [id number] [place] [address] Jan, [facility] [place] [facility] [id number] [place] [address], [place] [address]- [address] Jan, [facility] [place] [facility] [address] [id number] [place] [address] Jan, [facility] [place] [facility] [address] [address] [facility] [id number] [place] [address] Dec, [facility] [place] [facility] [address] [id number] [place] [address] Dec, [facility] [place] [facility] [address] [id number] [address] Dec, [facility] [place] [facility] [address] [facility] [id number] [place] [address] Nov, [facility] [place] [facility] [address] [id number] [place] [address] Nov, [facility] [place] [facility] [address] [id number] [place] [address] Nov, [facility] [place] [facility] [address] [id number] [place] [address] Nov, [facility] [place] [facility] [address] [facility] [id number] [place] [address] Oct, [facility] [place] [facility] [address] [facility] [id number] [place] [address] Oct, [facility] [place] [facility] [address] [facility] [id number] [place] [address] Sep, [facility] [place] [address] [facility] [id number] [address] Sep, [facility] [place] [address] [facility] [id number] [address] Apr, [facility] [place] [address] [facility] [id number] [address] Apr, IMMUNIZATIONS No Known Immunizations SOCIAL HISTORY Never Assessed REASON FOR VISIT Crisis PLAN OF CARE VITAL SIGNS MEDICATIONS Unknown Medications RESULTS No Results PROCEDURES No Known procedures INSTRUCTIONS MEDICATIONS ADMINISTERED No Known Medications MEDICAL (GENERAL) HISTORY Type Description Date Medical History hypertension Medical History hyperlipidemia Medical History psychiatric disorders Medical History Type 2 diabetes Surgical History dental surgery Hospitalization History pneumonia 10/2006
--- OUTSIDE RECORDS SUMMARY | 2017-11-21 16:18 | XMS REPORT ---
Author Author JAIRO SYKES Organization [facility] Address [address] [place] [address] Care Team Providers Care Rn Behavioral Health Name Role Phone JAIRO SYKES Unavailable PROBLEMS Type Condition ICD9-CM Code HGR48-SD Code Onset Dates Condition Status SNOMED Code Problem Major depressive disorder, single episode, unspecified F32.9 Active 029361365 Problem Depression 311 Active 97067081 Problem Schizotypal disorder F21 Active 18181360 Problem Hypertension, benign I10 Active 94283869 Problem Bipolar 1 disorder F31.9 Active 560287791 Problem Anxiety F41.9 Active 94649872 Problem Severe episode of recurrent major depressive disorder, with psychotic features F33.3 Active 28988745 Problem Generalized anxiety disorder F41.1 Active 62056886 Problem Controlled type 2 diabetes mellitus without complication, without long -term current use of insulin E11.9 Active 732327647 Problem Uncontrolled type 2 diabetes mellitus without complication, without long-term current use of insulin E11.65 Active 046747353 Problem Seasonal allergic rhinitis due to pollen J30.1 Active 41452849 Problem Low back pain of thoracolumbar region with sciatica M54.40 Active 307345558 ALLERGIES Substance Reaction Event Type Date Status Zyban rash Drug Allergy Jun, Active Lipitor Unknown Drug Allergy Jun, Active ENCOUNTERS Encounter Location Date Diagnosis [facility] [id number], [place] [address] Sep, PTSD (post-traumatic stress disorder) F43.10 and Severe episode of recurrent major depressive disorder, with psychotic features F33.3 [facility] [address] [id number], [place] [address] Sep, Acute upper back pain M54.9 and BMI 40.0-44.9, adult Z68.41 [facility] [id number], [place] [address] August, [place] [address], [place] [address] Jul, Severe episode of recurrent major depressive disorder, with psychotic features F33.3 ; Generalized anxiety disorder F41.1 and BMI 40.0-44.9 , adult Z68.41 [place] [address] [place] [address] 84152- 4062 Jul, Type 2 diabetes mellitus with other specified complication E11.69 and Encounter for immunization Z23 [place] [id number] [place] [address] 84235- 1780 Jul, [place] [id number] [place] [address] 76202- 5938 Jun, [place] [id number] [place] [address] 80318- 2158 Jun, [place] [id number] [place] [address] 39100- 3165 Jun, BMI 40.0-44.9, adult Z68.41 ; Severe episode of recurrent major depressive disorder, with psychotic features F33.3 and Generalized anxiety disorder F41.1 [place] [address] [place] [address] 51612- 8787 15 Jun, 2017 BMI 40.0-44.9, adult Z68.41 and Severe episode of recurrent major depressive disorder, with psychotic features F33.3 [place] [address] [place] [address] 35890- 3799 14 Jun, 2017 Major depressive disorder, single episode, unspecified F32.9 [place] [address] [address] 1740 14 Jun, 2017 [place] [id number] [place] [address] 19848- 7598 14 Jun, 2017 BMI 40.0-44.9, adult Z68.41 and Severe episode of recurrent major depressive disorder, with psychotic features F33.3 [place] [id number] [place] [address] 30738- 0107 Jun, BMI 40.0-44.9, adult Z68.41 ; Type 2 diabetes mellitus with other specified complication E11.69 and Bronchitis J40 [place] [id number] [place] [address] 82177- 4720 Jun, [place] [address] [address]16- 3753 Mar, [place] [id number] [place] [address] 93072- 2953 Feb, Type 2 diabetes mellitus with other specified complication E11.69 ; Generalized anxiety disorder F41.1 and Hypertension, benign I10 [place] [id number] [place] [address] 71759- 2739 Jan, Seasonal allergic rhinitis due to pollen J30.1 ; Viral gastroenteritis A08.4 and PTSD (post-traumatic stress disorder) F43.10 [place] [id number] [place] [address] 67779- 1419 Sep, [place] [id number] [place] [address] 04391- 7530 Sep, Erythema L53.9 [place] [id number] [place] [address] 16378- 3661 August, Type 2 diabetes mellitus with other specified complication E11.69 and Hypertension, benign I10 [place] [id number] [place] [address] 43101- 8215 August, Viral gastroenteritis A08.4 ; Type 2 diabetes mellitus with other specified complication E11.69 ; Hypertension, benign I10 and PTSD (post- traumatic stress disorder) F43.10 [place] [id number] [place] [address] 48381- 6152 August, [place] [id number] [place] [address] 64065- 1398 August, PTSD (post-traumatic stress disorder) F43.10 [facility] [address] [place] [address] 61679- 9216 Jul, [facility] [address] 60339- 7769 Jun, Type 2 diabetes mellitus with other specified complication E11.69 [facility] [id number] [place] [address] 89039 -7696 May, Body aches R52 ; Sore throat J02.9 ; Other viral agents as the cause of diseases classified elsewhere B97.89 and Acute upper respiratory infection, unspecified J06.9 [place] [address] 37398- 5686 May, [place] [id number] [place] [address] 04574- 7444 May, Seasonal allergic rhinitis due to pollen J30.1 and Controlled type 2 diabetes mellitus without complication, without long-term current use of insulin E11.9 [place] [id number] [place] [address] 96398- 7236 02 May, 2016 PTSD (post-traumatic stress disorder) F43.10 and Generalized anxiety disorder F41.1 [place] [id number] [place] [address] 73139- 9572 Apr, Type 2 diabetes mellitus with other specified complication E11.69 ; Bronchitis J40 and Low back pain of thoracolumbar region with sciatica M54.40 [place] [id number] [place] [address] 54021- 5104 Apr, PTSD (post-traumatic stress disorder) F43.10 and Uncontrolled type 2 diabetes mellitus without complication, without long-term current use of insulin E11.65 [place] [id number] [place] [address] 98271- 9057 Mar, Type 2 diabetes mellitus with other specified complication E11.69 ; Urinary retention R33.9 and Urinary frequency R35.0 [place] [id number] [place] [address] 82240- 8097 Mar, Bronchitis J40 [place] [id number] [place] [address] 92197- 3185 Feb, Controlled type 2 diabetes mellitus without complication, without long-term current use of insulin E11.9 and Hypertension, benign I10 [place] [id number] [place] [address] 22797- 6075 Feb, PTSD (post-traumatic stress disorder) F43.10 [place] [id number] [place] [address] 78237- 8276 Jan, [place] [address] 50739- 3227 Jan, Uncontrolled type 2 diabetes mellitus without complication, without long-term current use of insulin E11.65 [place] [id number] [place] [address] 34496- 2981 Dec, Diabetes type 2, controlled E11.9 ; Periodontal abscess K05.21 and Sinusitis, unspecified chronicity, unspecified location J32.9 [place] [id number] [place] [address] 54379- 2112 Dec, [place] [id number] [place] [address] 53925- 0002 Dec, [place] [id number] [place] [address] 66001- 9047 Nov, Chronic fatigue R53.82 [place] [id number] [place] [address] 63961- 5074 Oct, Common wart B07.8 [place] [id number] [place] [address] 99525- 2231 Sep, Type 2 diabetes mellitus with other specified complication E11.69 ; Common wart B07.8 and Dermatofibroma D23.9 [place] [id number] [place] [address] 46020- 1542 Sep, PTSD (post-traumatic stress disorder) F43.10 and Generalized anxiety disorder F41.1 [facility] [address] [place] [address] 87612- 0510 Jul, [facility] [id number] [place] [address] 44720- 3123 Jul, [place] [id number] [place] [address] 11011- 4878 Jul, PTSD (post-traumatic stress disorder) F43.10 and Generalized anxiety disorder F41.1 [facility] [id number] [place] [address] 14801- 3461 Jul, [place] [address] 94787- 5378 Jul, Obesity, morbid E66.01 ; Diabetes type 2, controlled E11.9 ; Hypertension, benign I10 and Arthritis M19.90 [place] [id number] [place] [address] 80884- 1001 Jul, Type 2 diabetes mellitus without complications E11.9 [place] [id number] [place] [address] 28959- 7695 17 Jun, 2015 Type 2 diabetes mellitus with other specified complication E11.69 [place] [id number] [place] [address] 19338- 0366 07 Jun, 2015 Type 2 diabetes mellitus with other specified complication E11.69 and Abdominal pain, generalized R10.84 [place] [id number] [place] [address] 75674- 1005 May, [place] [id number] [place] [address] 70065- 3899 May, Toothache K08.8 [place] [id number] [place] [address] 36265- 0692 Apr, [facility] [id number] [place] [address] [id number] Mar, Dental examination Z01.20 and Dental caries K02.9 [facility] [id number] [address] [address] Mar, [facility] [address] [place] [address] [id number] Mar, Dental examination Z01.20 and Dental caries K02.9 [facility] [id number] [place] [address] 59458- 3096 Feb, Dental abscess K04.7 and Type 2 diabetes mellitus with other specified complication E11.69 [facility] [id number] [place] [address] 37761- 0059 Feb, [facility] [id number] [place] [address] 736517- 2425 Feb, PTSD (post-traumatic stress disorder) F43.10 ; Generalized anxiety disorder F41.1 and Depressive disorder F32.9 [facility] [id number] [place] [address] 95908- 0807 Jan, [facility] [id number] [place] [address] 13992- 9799 Jan, [facility] [id number] [place] [address] 33899- 6511 Jan, [facility] [id number] [place] [address] 05140- 1875 Jan, [facility] [id number] [place] [address] 68416- 7901 14 Dec, 2014 Vision changes 368.9 ; Diabetes 250.00 and Hypertension 401.9 [facility] [id number] [place] [address] 91480- 5788 04 Dec, 2014 Generalized anxiety disorder 300.02 ; Depressive disorder, not elsewhere classified 311 and Posttraumatic stress disorder 309.81 [facility] [id number] [place] [address] 34849- 5191 Nov, [facility] [id number] [place] [address] 05112- 4358 08 Oct, 2014 [facility] [id number], [place] [address]- 3803 Sep, Erectile dysfunction 607.84 [facility] [address], [place] [address]- 5929 16 Sep, 2014 [facility] [address], [place] [address]- 1292 Sep, Generalized anxiety disorder 300.02 ; Depressive disorder, not elsewhere classified 311 and Posttraumatic stress disorder 309.81 [facility] [address], [place] [address]- 6444 August, [facility] [address], [place] [address]- 4050 Jul, [facility] [address], [place] [address]- 6970 Jul, [facility] [address], [place] [address]- 6543 Jun, [facility] [address], [place] [address]- 9512 Jun, [facility] [address], [place] [address]- 3081 Jun, [facility] [id number]- 9141 Jun, [facility] [place] [facility] [address], [place] [address]- 0388 Jun, [facility] [id number] 8355 Jun, [facility] [id number], [place] [address]- 0985 Jun, [facility] [id number] 3546 Jun, [facility] [address] [place] [address]- 4849 10 Jun, 2014 [facility] [address] [id number] [place] [address]- 5357 10 Jun, 2014 [facility] [place] [facility] [address] [id number] [place] [address]- 5806 02 Jun, 2014 [facility] [address] [id number] [place] [address]- 2529 02 Jun, 2014 [facility] [place] [facility] [address] [id number] [place] [address]- 5722 Mar, [facility] [place] [facility] [address] [id number] [place] [address]- 9323 Mar, [facility] [place] [facility] [address] [facility] [id number] [place] [address]- 4020 Jan, [facility] [place] [facility] [address] [facility] [id number] [place] [address]- 3453 Jan, [facility] [place] [facility] [address] [id number] [place] [address]- 2155 15 Dec, 2013 [facility] [place] [facility] [address] [id number] [place] [address]- 3179 15 Dec, 2013 [facility] [place] [facility] [address] [facility] [id number] [place] [address]- 2823 15 Dec, 2013 [facility] [place] [facility] [address] [id number] [place] [address]- 254 15 Dec, 2013 [facility] [place] [facility] [address] [id number] [place] [address]- 9295 Dec, 2013 [facility] [place] [facility] [address] [id number] [place] [address]- 2105 02 Dec, 2013 [facility] [place] [facility] [address] [facility] [id number] [place] [address]- 7859 02 Dec, 2013 [facility] [place] [facility] [address] [id number] [place] [address]- 2914 Dec, [facility] [place] [facility] [address] [id number] [place] [address]- 1989 Dec, [facility] [place] [facility] [address] [id number] [place] [address]- 0291 Dec, [facility] [place] [facility] [address] [id number] [place] [address]- 4437 Nov, [facility] [place] [facility] [address] [id number] [place] [address]- 3896 Nov, [facility] [place] [facility] [address] [id number] [place] [address]- 1636 Oct, [facility] [place] [facility] [address] [id number] [place] [address]- 2414 Oct, [facility] [place] [facility] [address] [id number] [place] [address]- 9345 Oct, [facility] [place] [facility] [address] [id number] [place] [address]- 8161 Oct, [facility] [place] [facility] [address] [id number] [place] [address]- 2735 Oct, [facility] [place] [facility] [address] [id number] [place] [address]- 8742 Oct, [facility] [place] [facility] [address] [id number] [place] [address]- 0102 Sep, [facility] [place] [facility] [address] [id number] [address]- 3508 Sep, [facility] [place] [facility] [address] [id number] [place] [address]- 4089 Sep, [facility] [place] [facility] [address] [id number] [place] [address]- 9388 Sep, [facility] [place] [facility] [address] [id number] [place] [address]- 1632 August, [facility] [place] [facility] [address] [id number], [place] [address]- 4277 August, [facility] [address] [id number] [place] [address]- 0362 August, [facility] [place] [facility] [address] [id number] [place] [address]- 4069 August, [facility] [place] [facility] [address] [id number] [place] [address]- 8481 August, [facility] [place] [facility] [address] [id number] [place] [address]- 2607 Jul, [facility] [place] [facility] [address] [id number] [place] [address]- 1929 Jul, [facility] [place] [facility] [address] [id number] [place] [address]- 5987 Jul, [facility] [place] [facility] [address] [id number] [place] [address]- 1642 Jul, [facility] [place] [facility] [address] [id number] [place] [address]- 3351 Jul, [facility] [place] [facility] [address] [id number] [place] [address]- 2101 Jul, [facility] [place] [facility] [address] [id number] [place] [address]- 2927 May, [facility] [place] [facility] [address] [id number] [place] [address]- 5534 May, [facility] [place] [facility] [address] [id number] [place] [address]- 9967 Apr, [facility] [place] [facility] [address] [id number] [place] [address]- 6564 Apr, [facility] [place] [facility] [address] [id number] [place] [address]- 5960 Apr, [facility] [place] [facility] [address] [id number] [place] [address]- 4573 Apr, [facility] [place] [facility] [address] [id number] [place] [address]- 7183 Apr, [facility] [place] [facility] [address] [id number] [place] [address]- 0991 Apr, [facility] [place] [facility] [address] [id number] [place] [address]- 8112 Feb, [facility] [place] [facility] [address] [id number] [place] [address]- 5847 Feb, [facility] [place] [facility] [address] [id number] [place] [address]- 6076 Feb, [facility] [place] [facility] [address] [id number] [place] [address]- 5010 Feb, [facility] [place] [facility] [address] [id number] [place] [address]- 4164 Feb, [facility] [place] [facility] [address] [id number] [place] [address]- 7697 Feb, [facility] [place] [facility] [address] [id number] [place] [address]- 2777 Jan, [facility] [place] [facility] [address] [id number] [place] [address]- 7220 Dec, [facility] [place] [facility] [address] [id number] [place] [address]- 3956 Oct, [facility] [place] [facility] [address] [id number] [place] [address]- 2216 August, [facility] [place] [facility] [address] [id number] [place] [address]- 7977 August, [facility] [place] [facility] [address] [id number] [place] [address]- 4559 August, [facility] [place] [facility] [address] [id number] [place] [address]- 7098 August, [facility] [place] [facility] [address] [id number] [place] [address]- 4185 24 Jul, 2012 [facility] [address] [id number] [place] [address]- 3854 23 Jul, 2012 [facility] [address] [id number] [place] [address]- 9255 18 Jul, 2012 [facility] [address] [id number] [place] [address]- 3634 18 Jul, 2012 [facility] [address] [id number] [place] [address]- 3281 16 Jul, 2012 [facility] [address] [id number] [place] [address]- 7383 20 Jun, 2012 [facility] [address] [id number] [place] [address]- 3887 20 Jun, 2012 [facility] [address] [id number] [place] [address]- 2744 15 Jun, 2012 [facility] [place] [facility] [address] [id number] [place] [address] Jun, [facility] [address] [id number] [place] [address] May, [facility] [address] [id number] [place] [address] May, [facility] [address] [id number] [place] [address] 15 Apr, 2012 [facility] [place] [facility] [address] [id number] [place] [address] 26 Mar, 2012 [facility] [place] [facility] [address] [id number] [place] [address] Mar, [facility] [place] [facility] [address] [id number] [place] [address] 14 Mar, 2012 [facility] [place] [facility] [address] [id number] [place] [address] 4[address] 14 Mar, 2012 [facility] [place] [facility] [address] [id number] [place] [address] 14 Mar, 2012 [facility] [address] [id number] [place] [address] 14 Mar, 2012 [facility] [place] [facility] [address] [id number] [place] [address] Mar, [facility] [address] [id number] [place] [address] 10 Mar, 2012 [facility] [place] [facility] [address] [id number] [place] [address] Mar, [facility] [place] [facility] [address] [id number] [place] [address], [place] [address] Feb, [facility] [place] [facility] [address] [facility] [id number] [place] [address] Feb, [facility] [place] [facility] [address] [facility] [id number] [place] [address] Feb, [facility] [place] [facility] [address] [facility] [id number] [place] [address] Feb, [facility] [place] [facility] [id number] [place] [address] Feb, [facility] [place] [facility] [address] [facility] [id number] [place] [address]- [address] Feb, [facility] [place] [facility] [address] [facility] [id number] [place] [address] Feb, [facility] [place] [facility] [address] [facility] [id number] [place] [address] Feb, [facility] [place] [facility] [address] [facility] [id number] [place] [address] Jan, [facility] [place] [facility] [address] [facility] [id number] [place] [address] Jan, [facility] [place] [facility] [address] [facility] [id number] [place] [address] Jan, [facility] [place] [facility] [address] [id number] [place] [address] Jan, [facility] [place] [facility] [address] [id number] [place] [address] Jan, [facility] [place] [facility] [address] [id number] [place] [address] Jan, [facility] [place] [facility] [address] [id number] [place] [address] Jan, [facility] [place] [facility] [address] [id number] [place] [address] Jan, [facility] [place] [facility] [address] [id number] [place] [address] Jan, [facility] [place] [facility] [address] [id number] [place] [address] Jan, [facility] [place] [facility] [address] [id number] [place] [address] Dec, [facility] [place] [facility] [address] [id number] [place] [address] Dec, [facility] [place] [facility] [address] [id number], [place] [address] Dec, [facility] [place] [facility] [address] [id number], [place] [address] Nov, [facility] [place] [facility] [address] [id number], [place] [address] Nov, [facility] [place] [facility] [address] [id number] [place] [address] Nov, [facility] [place] [facility] [address] [id number], [place] [address] Nov, [facility] [place] [facility] [address] [id number], [place] [address] Oct, [facility] [place] [facility] [address] [id number], [place] [address] Oct, [facility] [address] [facility] [id number], [place] [address] Sep, [facility] [address] [facility] [id number], [place] [address] Sep, [facility] [address] [facility] [id number], [place] [address] Apr, [facility] [address] [facility] [id number], [place] [address] Apr, IMMUNIZATIONS No Known Immunizations SOCIAL HISTORY Never Assessed REASON FOR VISIT needing help and PALS PLAN OF CARE VITAL SIGNS MEDICATIONS Medication Instructions Dosage Frequency Start Date End Date Duration Status HydrOXYzine HCl 25 MG Orally twice a day 1 tablet 12h Feb, Active Rexulti 2 MG Orally Once a day 1 tablet 24h Jun, 30 day(s) Active Zoloft 100 mg Orally Once a day 1.5 tablets (150 mg) 24h Jun, Active Toprol XL 50 mg Orally Once a day 1 tablet 24h Jun, 90 days Active Pravastatin Sodium 40 MG Orally Once a day. 1/2 tablet Jan, Active ProAir HFA 108 (90 Base) MCG/ACT Inhalation every 4-6 hours 2 puffs as needed Jul, 90 days Active RESULTS No Results PROCEDURES No Known procedures INSTRUCTIONS MEDICATIONS ADMINISTERED No Known Medications MEDICAL (GENERAL) HISTORY Type Description Date Medical History hypertension Medical History hyperlipidemia Medical History psychiatric disorders Medical History Type 2 diabetes Surgical History dental surgery Hospitalization History pneumonia 10/2006
--- OUTSIDE RECORDS SUMMARY | 2017-11-21 16:19 | XMS REPORT ---
Author Author JAIRO SYKES Organization [facility] Address [address] [place] [address] Care Team Providers Care Research Psychologist Name Role Phone JAIRO SYKES Unavailable PROBLEMS Type Condition ICD9-CM Code KPT37-TG Code Onset Dates Condition Status SNOMED Code Problem Major depressive disorder, single episode, unspecified F32.9 Active 199662970 Problem Depression 311 Active 52140198 Problem Schizotypal disorder F21 Active 50476396 Problem Hypertension, benign I10 Active 57991784 Problem Bipolar 1 disorder F31.9 Active 590326258 Problem Anxiety F41.9 Active 79792655 Problem Severe episode of recurrent major depressive disorder, with psychotic features F33.3 Active 46767034 Problem Generalized anxiety disorder F41.1 Active 25216749 Problem Controlled type 2 diabetes mellitus without complication, without long -term current use of insulin E11.9 Active 020769506 Problem Uncontrolled type 2 diabetes mellitus without complication, without long-term current use of insulin E11.65 Active 789007333 Problem Seasonal allergic rhinitis due to pollen J30.1 Active 47848072 Problem Low back pain of thoracolumbar region with sciatica M54.40 Active 477028500 ALLERGIES No Information ENCOUNTERS Encounter Location Date Diagnosis [facility] [address] [place] [address] 01993- 9171 Sep, PTSD (post-traumatic stress disorder) F43.10 and Severe episode of recurrent major depressive disorder, with psychotic features F33.3 [facility] [address] [place] [address] 46205- 3947 Sep, Acute upper back pain M54.9 and BMI 40.0-44.9, adult Z68.41 [facility] [address] [place] [address] 89408- 0070 August, [facility] [id number] [place] [address] 06290- 9638 Jul, Severe episode of recurrent major depressive disorder, with psychotic features F33.3 ; Generalized anxiety disorder F41.1 and BMI 40.0-44.9 , adult Z68.41 [place] [address] [address] 6201 Jul, Type 2 diabetes mellitus with other specified complication E11.69 and Encounter for immunization Z23 [place] [id number] [place] [address] 55932- 2858 Jul, [place] [address] [place] [address] 76455- 3492 Jun, [place] [id number] [place] [address] 05400- 4781 Jun, [place] [id number] [place] [address] 68024- 1708 Jun, BMI 40.0-44.9, adult Z68.41 ; Severe episode of recurrent major depressive disorder, with psychotic features F33.3 and Generalized anxiety disorder F41.1 [place] [address] [place] [address] 93732- 9641 15 Jun, 2017 BMI 40.0-44.9, adult Z68.41 and Severe episode of recurrent major depressive disorder, with psychotic features F33.3 [place] [address] [address]- 6546 14 Jun, 2017 Major depressive disorder, single episode, unspecified F32.9 [place] [address] [address]- 5678 14 Jun, 2017 [place] [id number] [place] [address] 53969- 9337 14 Jun, 2017 BMI 40.0-44.9, adult Z68.41 and Severe episode of recurrent major depressive disorder, with psychotic features F33.3 [place] [address] [address]- 1342 13 Jun, 2017 BMI 40.0-44.9, adult Z68.41 ; Type 2 diabetes mellitus with other specified complication E11.69 and Bronchitis J40 [place] [id number] [place] [address] 57505- 2143 Jun, [place] [id number] [place] [address] 25426- 0810 Mar, [place] [address] 26079- 7049 Feb, Type 2 diabetes mellitus with other specified complication E11.69 ; Generalized anxiety disorder F41.1 and Hypertension, benign I10 [place] [address] 79945- 9721 Jan, Seasonal allergic rhinitis due to pollen J30.1 ; Viral gastroenteritis A08.4 and PTSD (post-traumatic stress disorder) F43.10 [place] [address] 58856- 5734 Sep, [place] [address] 66161- 6271 Sep, Erythema L53.9 [place] [id number] [place] [address] 67175- 9424 August, Type 2 diabetes mellitus with other specified complication E11.69 and Hypertension, benign I10 [place] [id number] [place] [address] 81573- 4224 August, Viral gastroenteritis A08.4 ; Type 2 diabetes mellitus with other specified complication E11.69 ; Hypertension, benign I10 and PTSD (post- traumatic stress disorder) F43.10 [place] [id number] [place] [address] 39394- 3579 August, [place] [id number] [place] [address] 26941- 6089 August, PTSD (post-traumatic stress disorder) F43.10 [place] [id number] [place] [address] 25383- 1769 Jul, [facility] [address] [place] [address] 46662- 8027 Jun, Type 2 diabetes mellitus with other specified complication E11.[address] [facility] [address] [place] [address] 76779 -9285 May, Body aches R52 ; Sore throat J02.9 ; Other viral agents as the cause of diseases classified elsewhere B97.89 and Acute upper respiratory infection, unspecified J06.9 [facility] [id number] [place] [address] 06394- 8812 May, [place] [address] 21919- 7726 May, Seasonal allergic rhinitis due to pollen J30.1 and Controlled type 2 diabetes mellitus without complication, without long-term current use of insulin E11.9 [place] [id number] [place] [address] 97718- 6414 May, PTSD (post-traumatic stress disorder) F43.10 and Generalized anxiety disorder F41.1 [place] [id number] [place] [address] 24377- 6420 Apr, Type 2 diabetes mellitus with other specified complication E11.69 ; Bronchitis J40 and Low back pain of thoracolumbar region with sciatica M54.40 [place] [id number] [place] [address] 07936- 8779 Apr, PTSD (post-traumatic stress disorder) F43.10 and Uncontrolled type 2 diabetes mellitus without complication, without long-term current use of insulin E11.65 [place] [id number] [place] [address] 64122- 9211 Mar, Type 2 diabetes mellitus with other specified complication E11.69 ; Urinary retention R33.9 and Urinary frequency R35.0 [place] [id number] [place] [address] 01907- 5967 Mar, Bronchitis J40 [place] [id number] [place] [address] 69824- 1914 Feb, Controlled type 2 diabetes mellitus without complication, without long-term current use of insulin E11.9 and Hypertension, benign I10 [place] [id number] [place] [address] 69182- 6160 Feb, PTSD (post-traumatic stress disorder) F43.10 [place] [id number] [place] [address] 07405- 1027 Jan, [place] [id number] [place] [address] 31279- 9757 Jan, Uncontrolled type 2 diabetes mellitus without complication, without long-term current use of insulin E11.65 [place] [id number] [place] [address] 02826- 6947 Dec, Diabetes type 2, controlled E11.9 ; Periodontal abscess K05.21 and Sinusitis, unspecified chronicity, unspecified location J32.9 [place] [id number] [place] [address] 06299- 3660 Dec, [place] [id number] [place] [address] 54057- 7961 Dec, [place] [id number] [place] [address] 30504- 2079 Nov, Chronic fatigue R53.82 [place] [id number] [place] [address] 35527- 7897 Oct, Common wart B07.8 [place] [id number] [place] [address] 50047- 9577 Sep, Type 2 diabetes mellitus with other specified complication E11.69 ; Common wart B07.8 and Dermatofibroma D23.9 [place] [id number] [place] [address] 35656- 3285 Sep, PTSD (post-traumatic stress disorder) F43.10 and Generalized anxiety disorder F41.1 [place] [id number] [place] [address] 19330- 5881 Jul, [facility] [id number] [place] [address] 84121- 0366 Jul, [place] [id number] [place] [address] 02954- 3424 Jul, PTSD (post-traumatic stress disorder) F43.10 and Generalized anxiety disorder F41.1 [place] [id number] [place] [address] 01821- 2791 Jul, [place] [id number] [place] [address] 38155- 1888 Jul, Obesity, morbid E66.01 ; Diabetes type 2, controlled E11.9 ; Hypertension, benign I10 and Arthritis M19.90 [place] [address] 45290- 6055 Jul, Type 2 diabetes mellitus without complications E11.9 [place] [id number] [place] [address] 56535- 3597 17 Jun, 2015 Type 2 diabetes mellitus with other specified complication E11.69 [place] [id number] [place] [address] 30528- 5520 07 Jun, 2015 Type 2 diabetes mellitus with other specified complication E11.69 and Abdominal pain, generalized R10.84 [place] [id number] [place] [address] 27963- 6442 May, [place] [id number] [place] [address] 24223- 0151 May, Toothache K08.8 [place] [address] 89080- 1789 Apr, [facility] [id number] [place] [address] [id number] Mar, Dental examination Z01.20 and Dental caries K02.9 [place] [id number] [place] [address] 70782- 1996 Mar, [facility] [id number] [address] Mar, Dental examination Z01.20 and Dental caries K02.9 [facility] [address] [address]- 9686 Feb, Dental abscess K04.7 and Type 2 diabetes mellitus with other specified complication E11.69 [facility] [id number] [place] [address] 97877- 3382 Feb, [facility] [id number] [place] [address] 494731- 2681 Feb, PTSD (post-traumatic stress disorder) F43.10 ; Generalized anxiety disorder F41.1 and Depressive disorder F32.9 [facility] [address] [place] [address] 72819- 1816 Jan, [facility] [id number] [place] [address] 065504- 8401 Jan, [facility] [id number] [place] [address] 083664- 3416 Jan, [facility] [address] [place] [address] 85494- 9309 Jan, [facility] [address] [place] [address] 25214- 1243 Dec, Vision changes 368.9 ; Diabetes 250.00 and Hypertension 401.9 [facility] [address] [place] [address] 72575- 7007 04 Dec, 2014 Generalized anxiety disorder 300.02 ; Depressive disorder, not elsewhere classified 311 and Posttraumatic stress disorder 309.81 [facility] [id number] [place] [address] 65956- 9866 Nov, [facility] [address] 6186 Oct, [facility] [address] [address]- 6161 Sep, Erectile dysfunction 607.84 [facility] [address] [address]- 1976 16 Sep, 2014 [facility] [address] [address]- 2546 Sep, Generalized anxiety disorder 300.02 ; Depressive disorder, not elsewhere classified 311 and Posttraumatic stress disorder 309.81 [facility] [address] [address]- 4816 August, [facility] [address] [place] [address] 03692- 7380 14 Jul, 2014 [facility] [address] [address]- 1856 Jul, [facility] [address] [address]- 3452 Jun, [facility] [address] [address]- 6562 Jun, [facility] [address] 3255 Jun, [facility] [address] 2918 Jun, [facility] [id number]- 7672 10 Jun, 2014 [facility] [address] [address]- 2544 Jun, [facility] [address] [address]- 3424 Jun, [facility] [address] [address]- 2544 Jun, [facility] [id number] [address]- 7684 Jun, [facility] [place] [facility] [address] [id number] [place] [address]- 4348 Jun, 2014 [facility] [place] [facility] [address] [id number] [place] [address]- 0884 Jun, 2014 [facility] [place] [facility] [address] [id number] [place] [address]- 2805 Jun, 2014 [facility] [place] [facility] [address] [id number] [place] [address]- 7196 Mar, [facility] [place] [facility] [address] [id number] [place] [address]- 0991 Mar, [facility] [place] [facility] [address] [id number] [place] [address]- 9116 Jan, [facility] [place] [facility] [address] [id number] [place] [address]- 4990 Jan, [facility] [place] [facility] [address] [id number] [place] [address]- 3552 15 Dec, 2013 [facility] [place] [facility] [address] [id number] [place] [address]- 3145 15 Dec, 2013 [facility] [place] [facility] [address] [id number] [place] [address]- 3519 15 Dec, 2013 [facility] [place] [facility] [address] [id number] [place] [address]- 1923 15 Dec, 2013 [facility] [place] [facility] [address] [id number] [place] [address]- 4326 Dec, 2013 [facility] [place] [facility] [address] [id number] [place] [address]- 1426 Dec, 2013 [facility] [place] [facility] [address] [id number] [place] [address]- 4567 Dec, 2013 [facility] [place] [facility] [address] [id number] [place] [address]- 7514 Dec, 2013 [facility] [place] [facility] [address] [id number] [place] [address]- 8013 Dec, [facility] [place] [facility] [address] [id number] [place] [address]- 9382 Dec, [facility] [place] [facility] [address] [id number] [place] [address]- 8348 Nov, [facility] [place] [facility] [address] [id number] [place] [address]- 9632 Nov, [facility] [place] [facility] [address] [id number] [place] [address]- 6753 Oct, [facility] [place] [facility] [address] [id number] [place] [address]- 9054 Oct, [facility] [place] [facility] [address] [id number] [place] [address]- 1718 Oct, [facility] [place] [facility] [address] [id number] [place] [address]- 1079 Oct, [facility] [place] [facility] [address] [id number] [place] [address]- 0321 Oct, [facility] [place] [facility] [address] [id number] [place] [address]- 5756 Oct, [facility] [place] [facility] [address] [id number] [place] [address]- 5674 Sep, [facility] [place] [facility] [address] [id number] [place] [address]- 4267 Sep, [facility] [place] [facility] [address] [id number] [place] [address]- 8611 Sep, [facility] [place] [facility] [address] [id number] [place] [address]- 3324 Sep, [facility] [place] [facility] [address] [id number] [place] [address]- 5774 August, [facility] [place] [facility] [address] [id number] [place] [address]- 4045 August, [facility] [place] [facility] [address] [id number] [place] [address]- 2830 August, [facility] [address] [id number] [place] [address]- 0938 August, [facility] [place] [facility] [address] [id number] [place] [address]- 8787 August, [facility] [address] [id number] [place] [address]- 8864 Jul, [facility] [place] [facility] [address] [id number] [place] [address]- 3261 Jul, [facility] [address] [id number] [place] [address]- 2116 Jul, [facility] [address] [id number] [place] [address]- 5573 Jul, [facility] [address] [id number] [place] [address]- 0260 Jul, [facility] [address] [id number] [place] [address]- 2835 Jul, [facility] [address] [id number] [place] [address]- 0984 May, [facility] [address] [id number] [place] [address]- 3571 May, [facility] [address] [id number] [place] [address]- 1390 Apr, [facility] [place] [facility] [address] [id number] [place] [address]- 5534 Apr, [facility] [place] [facility] [address] [id number] [place] [address]- 3962 Apr, [facility] [place] [facility] [address] [id number] [place] [address]- 8045 Apr, [facility] [place] [facility] [address] [id number] [place] [address]- 5742 Apr, [facility] [address] [id number] [place] [address]- 7830 Apr, [facility] [place] [facility] [address] [id number] [place] [address]- 3742 Feb, [facility] [place] [facility] [address] [id number] [place] [address]- 7773 Feb, [facility] [place] [facility] [address] [id number] [place] [address]- 5115 Feb, [facility] [place] [facility] [address] [id number] [place] [address]- 4295 Feb, [facility] [place] [facility] [address] [id number] [place] [address]- 0462 Feb, [facility] [place] [facility] [address] [id number] [place] [address]- 0360 Feb, [facility] [place] [facility] [address] [id number] [address]- 2855 Jan, [facility] [place] [facility] [address] [id number] [place] [address]- 6231 Dec, [facility] [place] [facility] [address] [id number] [address]- 5584 Oct, [facility] [place] [facility] [address] [id number][place] [address]- 2924 August, [facility] [place] [facility] [address] [id number][place] [address]- 4296 August, [facility] [place] [facility] [address] [id number] [place] [address]- 3025 August, [facility] [place] [facility] [address] [id number] [address]- 6316 August, [facility] [place] [facility] [address] [id number] [address]- 6523 Jul, [facility] [place] [facility] [address] [id number] [address]- 1835 23 Jul, 2012 [facility] [address] [id number] [place] [address]- 1909 18 Jul, 2012 [facility] [address] [id number] [place] [address]- 8667 18 Jul, 2012 [facility] [address] [facility] [id number] [place] [address]- 5576 16 Jul, 2012 [facility] [address] [id number] [place] [address]- 6970 20 Jun, 2012 [facility] [address] [id number] [place] [address]- 8970 20 Jun, 2012 [facility] [address] [id number] [place] [address]- 4932 15 Jun, 2012 [facility] [address] [facility] [id number] [place] [address]- 6557 13 Jun, 2012 [facility] [address] [id number] [place] [address]- 7387 22 May, 2012 [facility] [address] [facility] [id number] [place] [address]- 4936 13 May, 2012 [facility] [address] [facility] [id number] [place] [address]- 9049 15 Apr, 2012 [facility] [address] [id number] [place] [address]- 2083 26 Mar, 2012 [facility] [address] [id number] [place] [address]- 4568 26 Mar, 2012 [facility] [address] [id number] [place] [address]- 1530 14 Mar, 2012 [facility] [address] [facility] [id number] [place] [address] 14 Mar, 2012 [facility] [address] [facility] [id number] [place] [address] 14 Mar, 2012 [facility] [place] [facility] [address] [id number] [place] [address] 14 Mar, 2012 [facility] [place] [facility] [address] [id number] [place] [address] Mar, [facility] [place] [facility] [address] [id number] [place] [address] Mar, [facility] [place] [facility] [address] [id number] [place] [address] Mar, [facility] [place] [facility] [address] [id number] [place] [address] Feb, [facility] [place] [facility] [address] [id number] [place] [address] Feb, [facility] [place] [facility] [address] [id number] [place] [address] Feb, [facility] [place] [facility] [address] [id number] [place] [address] Feb, [facility] [place] [facility] [address] [id number] [place] [address] Feb, [facility] [place] [facility] [address] [id number] [place] [address] Feb, [facility] [place] [facility] [address] [id number] [place] [address] Feb, [facility] [place] [facility] [address] [id number] [place] [address] Feb, [facility] [place] [facility] [address] [id number] [place] [address] Jan, [facility] [place] [facility] [address] [id number] [place] [address] Jan, [facility] [place] [facility] [address] [id number] [place] [address] Jan, [facility] [place] [facility] [address] [id number] [place] [address] Jan, [facility] [place] [facility] [address] [id number] [place] [address] Jan, [facility] [place] [facility] [address] [id number] [place] [address] Jan, [facility] [place] [facility] [address] [id number] [place] [address] Jan, [facility] [place] [facility] [address] [id number] [place] [address] Jan, [facility] [place] [facility] [address] [id number] [place] [address] Jan, [facility] [place] [facility] [address] [id number] [place] [address] Jan, [facility] [place] [facility] [address] [id number] [place] [address] Dec, [facility] [place] [facility] [address] [id number] [place] [address] Dec, [facility] [place] [facility] [address] [id number] [place] [address] Dec, [facility] [place] [facility] [address] [id number] [place] [address] Nov, [facility] [place] [facility] [address] [id number] [place] [address] Nov, [facility] [place] [facility] [address] [id number] [address] Nov, [facility] [place] [facility] [address] [id number] [place] [address] Nov, [facility] [place] [facility] [address] [id number] [place] [address] Oct, [facility] [place] [facility] [address] [id number] [place] [address] Oct, [facility] [place] [facility] [address] [facility] [id number] [place] [address] Sep, [facility] [address] [facility] [id number] [address] Sep, [facility] [address] [facility] [id number][place] [address] Apr, [facility] [address] [facility] [id number][place] [address] Apr, IMMUNIZATIONS No Known Immunizations SOCIAL HISTORY Never Assessed REASON FOR VISIT SOC[facility]-IN, ATS: Routine Follow Up PLAN OF CARE VITAL SIGNS MEDICATIONS Unknown Medications RESULTS No Results PROCEDURES Procedure Date Ordered Result Body Site Alcohol and/or drug services July 11, 2017 INSTRUCTIONS MEDICATIONS ADMINISTERED No Known Medications MEDICAL (GENERAL) HISTORY Type Description Date Medical History hypertension Medical History hyperlipidemia Medical History psychiatric disorders Medical History Type 2 diabetes Surgical History dental surgery Hospitalization History pneumonia 10/2006
--- OUTSIDE RECORDS SUMMARY | 2017-11-21 16:19 | XMS REPORT ---
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 Name Role Phone JAIRO SYKES Unavailable PROBLEMS Type Condition ICD9-CM Code [id number] Code Onset Dates Condition Status SNOMED Code Problem Hypertension, benign I10 Active 38772139 Problem Type 2 diabetes mellitus with other specified complication E11.69 Active 99830353 Problem Dental abscess K04.7 Active 455697894 Problem Severe episode of recurrent major depressive disorder, with psychotic features F33.3 Active 84740836 Problem Generalized anxiety disorder F41.1 Active 82904373 Problem Controlled type 2 diabetes mellitus without complication, without long -term current use of insulin E11.9 Active 749663013 Problem Uncontrolled type 2 diabetes mellitus without complication, without long-term current use of insulin E11.65 Active 478079092 Problem Seasonal allergic rhinitis due to pollen J30.1 Active 94884654 Problem Low back pain of thoracolumbar region with sciatica M54.40 Active 323585991 Problem Depression 311 Active 71945348 Problem Anxiety F41.9 Active 29147688 Problem Low back pain M54.5 Active 533710149 Problem Bipolar 1 disorder F31.9 Active 820790955 Problem Major depressive disorder, single episode, unspecified F32.9 Active 030529036 Problem Diabetes type 2, controlled E11.9 Active 78705892 Problem Schizotypal disorder F21 Active 28049444 ALLERGIES No Information ENCOUNTERS Encounter Location Date Diagnosis [facility] [address] [id number], [place] [address] Sep, [facility] [address], [place] [address] August, [facility] [address] [id number], [place] [address] Jul, Severe episode of recurrent major depressive disorder, with psychotic features F33.3 ; Generalized anxiety disorder F41.1 and BMI 40.0-44.9 , adult Z68.41 [facility] [id number] [place] [address] 83071- 3989 18 Jul, 2017 Type 2 diabetes mellitus with other specified complication E11.69 and Encounter for immunization Z23 [facility] [id number] [place] [address] 22452- 5555 17 Jul, 2017 [facility] [id number] [place] [address] 19831- 6907 28 Jun, 2017 [facility] [id number] [place] [address] 61962- 6574 23 Jun, 2017 [facility] [id number] [place] [address] 11748- 5492 22 Jun, 2017 BMI 40.0-44.9, adult Z68.41 ; Severe episode of recurrent major depressive disorder, with psychotic features F33.3 and Generalized anxiety disorder F41.1 [facility] [id number] [place] [address] 10195- 5380 15 Jun, 2017 BMI 40.0-44.9, adult Z68.41 and Severe episode of recurrent major depressive disorder, with psychotic features F33.3 [facility] [address], [place] [address] 0261 14 Jun, 2017 Major depressive disorder, single episode, unspecified F32.9 [facility] [id number] [place] [address] 43293- 2397 14 Jun, 2017 [facility] [address] [place] [address] 54339- 0814 14 Jun, 2017 BMI 40.0-44.9, adult Z68.41 and Severe episode of recurrent major depressive disorder, with psychotic features F33.3 [facility] [address], [place] [address] 06[address] 13 Jun, 2017 BMI 40.0-44.9, adult Z68.41 ; Type 2 diabetes mellitus with other specified complication E11.69 and Bronchitis J40 [facility] [address], [place] [address] Jun, [facility] [id number] [place] [address] 89206- 2346 Mar, [facility] [id number] [place] [address] 18940- 8083 Feb, Type 2 diabetes mellitus with other specified complication E11.69 ; Generalized anxiety disorder F41.1 and Hypertension, benign I10 [facility] [id number] [place] [address] 33027- 6662 Jan, Seasonal allergic rhinitis due to pollen J30.1 ; Viral gastroenteritis A08.4 and PTSD (post-traumatic stress disorder) F43.10 [facility] [id number] [place] [address] 70722- 1004 Sep, [facility] [id number] [place] [address] 60209- 4619 Sep, Erythema L53.9 [facility] [id number] [place] [address] 17539- 3118 August, Type 2 diabetes mellitus with other specified complication E11.69 and Hypertension, benign I10 [facility] [id number] [place] [address] 82132- 2885 August, Viral gastroenteritis A08.4 ; Type 2 diabetes mellitus with other specified complication E11.69 ; Hypertension, benign I10 and PTSD (post- traumatic stress disorder) F43.10 [facility] [address], [place] [address] 6[address] August, [facility] [id number] [place] [address] 89512- 8845 August, PTSD (post-traumatic stress disorder) F43.10 [facility] [id number] [place] [address] 24432- 2329 Jul, [facility] [id number] [place] [address] 77149- 7360 Jun, Type 2 diabetes mellitus with other specified complication E11.69 [facility] [id number] [place] [address] 99783 -2656 May, Body aches R52 ; Sore throat J02.9 ; Other viral agents as the cause of diseases classified elsewhere B97.89 and Acute upper respiratory infection, unspecified J06.9 [facility] [address] 23492- 2385 May, [facility] [address] 23580- 2835 May, Seasonal allergic rhinitis due to pollen J30.1 and Controlled type 2 diabetes mellitus without complication, without long-term current use of insulin E11.9 [facility] [address] 42218- 5421 May, PTSD (post-traumatic stress disorder) F43.10 and Generalized anxiety disorder F41.1 [facility] [address] 59667- 4885 Apr, Type 2 diabetes mellitus with other specified complication E11.69 ; Bronchitis J40 and Low back pain of thoracolumbar region with sciatica M54.40 [facility] [id number] [place] [address] 02637- 0622 Apr, PTSD (post-traumatic stress disorder) F43.10 and Uncontrolled type 2 diabetes mellitus without complication, without long-term current use of insulin E11.65 [facility] [id number] [place] [address] 60566- 7219 Mar, Type 2 diabetes mellitus with other specified complication E11.69 ; Urinary retention R33.9 and Urinary frequency R35.0 [facility] [id number] [place] [address] 15496- 3357 Mar, Bronchitis J40 [facility] [id number] [place] [address] 75902- 8681 Feb, Controlled type 2 diabetes mellitus without complication, without long-term current use of insulin E11.9 and Hypertension, benign I10 [facility] [id number] [place] [address] 95523- 4402 Feb, PTSD (post-traumatic stress disorder) F43.10 [facility] [id number] [place] [address] 85590- 6790 Jan, [facility] [address] 55382- 0685 Jan, Uncontrolled type 2 diabetes mellitus without complication, without long-term current use of insulin E11.65 [facility] [address] 89428- 5577 Dec, Diabetes type 2, controlled E11.9 ; Periodontal abscess K05.21 and Sinusitis, unspecified chronicity, unspecified location J32.9 [facility] [address] 34764- 1901 Dec, [facility] [id number] [place] [address] 39349- 1496 Dec, [facility] [address] 65785- 5147 Nov, Chronic fatigue R53.82 [facility] [id number] [place] [address] 88376- 1216 Oct, Common wart B07.8 [facility] [id number] [place] [address] 92452- 0362 Sep, Type 2 diabetes mellitus with other specified complication E11.69 ; Common wart B07.8 and Dermatofibroma D23.9 [facility] [address] 49121- 6522 Sep, PTSD (post-traumatic stress disorder) F43.10 and Generalized anxiety disorder F41.1 [facility] [id number] [place] [address] 55164- 3063 Jul, [facility] [id number] [place] [address] 66134- 0243 Jul, [facility] [address] 37703- 2229 Jul, PTSD (post-traumatic stress disorder) F43.10 and Generalized anxiety disorder F41.1 [facility] [id number] [place] [address] 95440- 7612 Jul, [facility] [address] 17930- 0948 Jul, Obesity, morbid E66.01 ; Diabetes type 2, controlled E11.9 ; Hypertension, benign I10 and Arthritis M19.90 [facility] [id number] [place] [address] 17677- 7167 Jul, Type 2 diabetes mellitus without complications E11.9 [facility] [address] 56632- 0843 17 Jun, 2015 Type 2 diabetes mellitus with other specified complication E11.69 [facility] [address] 93619- 0855 07 Jun, 2015 Type 2 diabetes mellitus with other specified complication E11.69 and Abdominal pain, generalized R10.84 [facility] [id number] [place] [address] 64814- 7283 May, [facility] [id number] [place] [address] 41478- 9322 May, Toothache K08.8 [facility] [id number] [place] [address] 01339- 3954 Apr, [facility] [address] [id number] Mar, Dental examination Z01.20 and Dental caries K02.9 [facility] [id number] [place] [address] 84541- 8346 Mar, [facility] [address] [id number] Mar, Dental examination Z01.20 and Dental caries K02.9 [facility] [address] 228336- 2498 Feb, Dental abscess K04.7 and Type 2 diabetes mellitus with other specified complication E11.69 [facility] [address] 664503- 0968 Feb, [facility] [address] 56836- 2795 Feb, PTSD (post-traumatic stress disorder) F43.10 ; Generalized anxiety disorder F41.1 and Depressive disorder F32.9 [facility] [id number] [place] [address] 00653- 3946 Jan, [facility] [id number] [place] [address] 28619- 6089 Jan, [facility] [address] [id number]- 7141 Jan, [facility] [id number] [place] [address] 39283- 9204 Jan, [facility] [id number] [place] [address] 23668- 8812 Dec, Vision changes 368.9 ; Diabetes 250.00 and Hypertension 401.[address] 54939- 7500 Dec, Generalized anxiety disorder 300.02 ; Depressive disorder, not elsewhere classified 311 and Posttraumatic stress disorder 309.81 [facility] [address] 99337- 8046 Nov, [facility] [address] 39659- 9740 Oct, [facility] [id number] [place] [address] 212198- 6482 Sep, Erectile dysfunction 607.84 [facility] [address] [facility] [id number] [address]- 0743 Sep, [facility] [address], [place] [address]- 8963 Sep, Generalized anxiety disorder 300.02 ; Depressive disorder, not elsewhere classified 311 and Posttraumatic stress disorder 309.81 [facility] [address] [id number], [place] [address]- 5174 August, [facility] [address] [id number], [place] [address]- 5136 Jul, [facility] [address] [id number], [place] [address]- 1394 Jul, [facility] [address], [place] [address]- 8046 Jun, [facility] [address], [place] [address]- 9868 Jun, [facility] [address], [place] [address]- 6225 Jun, [facility] [address] 1071 Jun, [facility] [address] 5065 Jun, [facility] [address] 0968 Jun, [facility] [address] [id number], [place] [address]- 3432 Jun, [facility] [address] [id number], [place] [address]- 2204 Jun, [facility] [address] [facility] [id number], [place] [address]- 2435 Jun, [facility] [address] [id number] [address]- 7444 Jun, [facility] [place] [facility] [address] [id number] [place] [address]- 0076 Jun, [facility] [place] [facility] [address] [id number] [place] [address]- 5198 Jun, [facility] [place] [facility] [address] [id number] [place] [address]- 3390 Mar, [facility] [place] [facility] [address] [id number] [place] [address]- 9255 Mar, [facility] [place] [facility] [address] [id number] [place] [address]- 0650 Jan, [facility] [place] [facility] [address] [id number] [place] [address]- 5954 Jan, [facility] [place] [facility] [address] [id number] [place] [address]- 3223 15 Dec, 2013 [facility] [place] [facility] [address] [id number] [place] [address]- 7798 15 Dec, 2013 [facility] [place] [facility] [address] [id number] [place] [address]- 4610 15 Dec, 2013 [facility] [place] [facility] [address] [id number] [place] [address]- 6240 15 Dec, 2013 [facility] [place] [facility] [address] [id number] [place] [address]- 2251 Dec, 2013 [facility] [place] [facility] [address] [id number] [place] [address]- 8611 Dec, 2013 [facility] [place] [facility] [address] [id number] [place] [address]- 6569 Dec, 2013 [facility] [place] [facility] [address] [id number] [place] [address]- 2954 Dec, 2013 [facility] [place] [facility] [address] [id number] [place] [address]- 1858 Dec, 2013 [facility] [place] [facility] [address] [id number] [place] [address]- 0721 Dec, [facility] [place] [facility] [address] [id number] [place] [address]- 4774 Nov, [facility] [place] [facility] [address] [id number] [place] [address]- 7752 Nov, [facility] [place] [facility] [address] [id number] [place] [address]- 4066 Oct, [facility] [place] [facility] [address] [id number] [place] [address]- 4854 Oct, [facility] [place] [facility] [address] [id number] [place] [address]- 1227 Oct, [facility] [place] [facility] [address] [id number] [place] [address]- 5682 Oct, [facility] [place] [facility] [address] [id number] [place] [address]- 0460 Oct, [facility] [place] [facility] [address] [id number] [place] [address]- 7664 Oct, [facility] [place] [facility] [address] [id number] [place] [address]- 9474 Sep, [facility] [place] [facility] [address] [id number] [place] [address]- 0719 Sep, [facility] [place] [facility] [address] [id number] [place] [address]- 7295 Sep, [facility] [place] [facility] [address] [id number] [place] [address]- 0065 Sep, [facility] [place] [facility] [address] [id number] [place]25 August, [facility] [place] [facility] [address] [id number] [place] 7285 August, [facility] [place] [facility] [address] [id number] [place] 6823 August, [facility] [place] [facility] [address] [id number] [place] [address]- 3549 August, [facility] [address] [id number] [place] [address]- 2153 August, [facility] [place] [facility] [address] [id number] [place] [address]- 5512 Jul, [facility] [place] [facility] [address] [id number] [place] [address]- 5668 Jul, [facility] [place] [facility] [address] [id number] [place] [address]- 8469 Jul, [facility] [place] [facility] [address] [id number] [place] [address]- 5660 Jul, [facility] [place] [facility] [address] [id number] [place] [address]- 5931 Jul, [facility] [place] [facility] [address] [id number] [place] [address]- 6046 Jul, [facility] [address] [id number] [place] [address]- 7808 May, [facility] [place] [facility] [address] [id number] [place] [address]- 8955 May, [facility] [place] [facility] [address] [id number] [place] [address]- 6647 Apr, [facility] [place] [facility] [address] [id number] [place] [address]- 2660 Apr, [facility] [place] [facility] [address] [id number] [place] [address]- 4042 Apr, [facility] [place] [facility] [address] [id number] [place] [address]- 8625 Apr, [facility] [place] [facility] [address] [id number] [place] [address]- 3311 Apr, [facility] [place] [facility] [address] [id number] [place] [address]- 9500 Apr, [facility] [place] [facility] [address] [id number] [place] [address]- 0077 Feb, [facility] [place] [facility] [address] [id number] [place] [address]- 8552 Feb, [facility] [place] [facility] [address] [id number] [place] [address]- 7598 Feb, [facility] [place] [facility] [address] [id number] [place] [address]- 3199 Feb, [facility] [place] [facility] [address] [id number] [place] [address]- 2180 Feb, [facility] [place] [facility] [address] [id number] [place] [address]- 0519 Feb, [facility] [place] [facility] [address] [id number] [place] [address]- 2322 Jan, [facility] [place] [facility] [address] [id number] [place] [address]- 7676 Dec, [facility] [place] [facility] [address] [id number] [place] [address]- 5859 Oct, [facility] [place] [facility] [address] [id number] [place] [address]- 7761 August, [facility] [place] [facility] [address] [id number], [place] [address]- 8035 August, [facility] [place] [facility] [address] [id number], [place] [address]- 0397 August, [facility] [place] [facility] [address] [id number] [place] [address]- 6399 August, [facility] [place] [facility] [address] [id number], [place] [address]- 2781 24 Jul, 2012 [facility] [place] [facility] [address] [id number] [place] [address]- 2070 Jul, [facility] [place] [facility] [address] [id number] [place] [address]- 5800 18 Jul, 2012 [facility] [address] [id number] [place] [address]- 8164 18 Jul, 2012 [facility] [address] [id number] [place] [address]- 7396 16 Jul, 2012 [facility] [address] [id number] [place] [address]- 5877 20 Jun, 2012 [facility] [address] [id number] [place] [address]- 0214 20 Jun, 2012 [facility] [address] [id number] [place] [address]- 1888 15 Jun, 2012 [facility] [address] [id number] [place] [address]- 9547 13 Jun, 2012 [facility] [address] [id number] [place] [address]- 0996 22 May, 2012 [facility] [address] [id number] [place] [address]- 8853 13 May, 2012 [facility] [address] [id number] [place] [address]- 8823 15 Apr, 2012 [facility] [address] [id number] [place] [address]- 2023 26 Mar, 2012 [facility] [address] [id number] [place] [address]- 0606 26 Mar, 2012 [facility] [address] [id number] [place] [address]- 7878 14 Mar, 2012 [facility] [place] [facility] [address] [id number] [place] [address]- 5297 14 Mar, 2012 [facility] [place] [facility] [address] [id number] [place] [address]- 6073 14 Mar, 2012 [facility] [address] [id number] [place] [address]- 1665 14 Mar, 2012 [facility] [place] [facility] [address] [id number] [place] [address]- 1230 Mar, [facility] [place] [facility] [address] [id number] [place] [address]- 4877 Mar, [facility] [place] [facility] [address] [id number] [place] [address]- 9453 Mar, [facility] [place] [facility] [address] [id number] [place] [address]- 4402 Feb, [facility] [place] [facility] [address] [id number] [place] [address]- 0772 Feb, [facility] [place] [facility] [address] [id number] [place] [address] Feb, [facility] [place] [facility] [address] [id number] [place] [address] Feb, [facility] [place] [facility] [address] [id number] [place] [address] Feb, [facility] [place] [facility] [address] [id number] [place] [address] Feb, [facility] [place] [facility] [address] [id number] [place] [address] Feb, [facility] [place] [facility] [address] [id number] [place] [address] Feb, [facility] [place] [facility] [address] [id number], [place] [address] Jan, [facility] [place] [facility] [address] [id number] [place] [address] Jan, [facility] [place] [facility] [address] [id number] [place] [address] Jan, [facility] [place] [facility] [address] [id number] [place] [address] Jan, [facility] [place] [facility] [address] [id number], [place] [address] Jan, [facility] [place] [facility] [address] [id number] [place] [address] Jan, [facility] [place] [facility] [address] [id number] [place] [address] Jan, [facility] [place] [facility] [address] [id number] [place] [address] Jan, [facility] [place] [facility] [address] [id number] [place] [address] Jan, [facility] [place] [facility] [address] [id number] [place] [address] Jan, [facility] [place] [facility] [address] [id number] [place] [address] Dec, [facility] [place] [facility] [address] [id number] [place] [address] Dec, [facility] [place] [facility] [address] [id number] [place] [address] Dec, [facility] [place] [facility] [address] [id number] [place] [address] Nov, [facility] [place] [facility] [address] [id number] [place] [address] Nov, [facility] [place] [facility] [address] [id number] [place] [address] Nov, [facility] [place] [facility] [address] [id number] [place] [address] Nov, [facility] [place] [facility] [address] [id number] [place] [address] Oct, [facility] [place] [facility] [address] [id number] [place] [address] Oct, [facility] [place] [facility] [address] [id number] [place] [address] Sep, [facility] [place] [facility] [address] [facility] [id number] [place] [address] 16 Sep, 2011 [facility] [address] [facility] [id number] [place] [address] Apr, [facility] [address] [facility] [id number] [place] [address] Apr, IMMUNIZATIONS No Known Immunizations SOCIAL HISTORY Never Assessed REASON FOR VISIT Repository Medication PLAN OF CARE VITAL SIGNS MEDICATIONS Medication Instructions Dosage Frequency Start Date End Date Duration Status Metformin HCl 1000 MG Orally 2 times a day 1 tablet with meals 12h 30 days Active Toprol XL 50 mg Orally Once a day 1 tablet 24h Jun, 90 days Active ProAir HFA 108 (90 Base) MCG/ACT Inhalation every 4-6 hours 2 puffs as needed Jul, 30 days Active Zoloft 100 MG Orally Once a day 1.5 tablet 24h Mar, 30 days Active Pravastatin Sodium 20 mg Orally Once a day. 1 tablet Jan, 90 days Active Topamax 100 MG Orally Once a day 1 tablet 24h Jun, 30 days Active RESULTS No Results PROCEDURES No Known procedures INSTRUCTIONS MEDICATIONS ADMINISTERED No Known Medications MEDICAL (GENERAL) HISTORY Type Description Date Medical History hypertension Medical History hyperlipidemia Medical History psychiatric disorders Medical History Type 2 diabetes Surgical History dental surgery Hospitalization History pneumonia 10/2006
--- OUTSIDE RECORDS SUMMARY | 2017-11-21 16:20 | XMS REPORT ---
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 Name Role Phone JAIRO SYKES Unavailable PROBLEMS Type Condition ICD9-CM Code [id number] Code Onset Dates Condition Status SNOMED Code Problem Anxiety F41.9 Active 15440562 Problem Depression 311 Active 72521631 Problem Major depressive disorder, single episode, unspecified F32.9 Active 090800633 Problem Seasonal allergic rhinitis due to pollen J30.1 Active 21362480 Problem Low back pain of thoracolumbar region with sciatica M54.40 Active 558303367 Problem Type 2 diabetes mellitus with other specified complication E11.69 Active 63846312 Problem Dental abscess K04.7 Active 943473943 Problem Controlled type 2 diabetes mellitus without complication, without long -term current use of insulin E11.9 Active 814309684 Problem Uncontrolled type 2 diabetes mellitus without complication, without long-term current use of insulin E11.65 Active 609581131 Problem Hypertension, benign I10 Active 79458466 Problem Low back pain M54.5 Active 112953389 Problem Bipolar 1 disorder F31.9 Active 671651650 Problem Diabetes type 2, controlled E11.9 Active 27534600 Problem Schizotypal disorder F21 Active 19757752 ALLERGIES Substance Reaction Event Type Date Status Zyban rash Drug Allergy Mar, Active Lipitor Unknown Drug Allergy Mar, Active SOCIAL HISTORY No smoking Hx information available PLAN OF CARE VITAL SIGNS Height 75 in 2016-04-24 Weight 341.2 lbs 2016-04-24 Temperature 98.2 degrees Fahrenheit 2016-04-24 Heart Rate 84 bpm 2016-04-24 Respiratory Rate 22 2016-04-24 BMI 42.64 kg/m2 2016-04-24 Blood pressure systolic 122 mmHg 2016-04-24 Blood pressure diastolic 80 mmHg 2016-04-24 MEDICATIONS Medication Instructions Dosage Frequency Start Date End Date Duration Status Zoloft 100 MG Orally Once a day 1.5 tablet 24h Mar, Active Topamax 100 MG Orally daily 1 tablet 24h Jun, Active Metformin HCl 1000 MG Orally Twice a day 1 tablet with meals 12h Active ProAir HFA 108 (90 Base) MCG/ACT Inhalation 4 times a day. please voucher 2 puffs as needed Jul, Active Fish Oil 1000 MG Orally twice a day. please voucher 2 capsules Jul, Active Pravastatin Sodium 20 mg Orally Once a day. 1 tablet Jan, Active Toprol XL 50 mg Orally Once a day 1 tablet 24h Jun, Active RESULTS Name Result Date Reference Range A1C (IN HOUSE) 2016-04-24 A1C IN HOUSE 6.2 4.3 - 5.6 % Previous A1c 6.5 Lot [id number] Exp date CBC 2016-04-24 WBC 11.3 3.4-10.8 RBC 5.18 4.14-5.80 Hemoglobin 15.2 12.6-17.7 Hematocrit 46.0 37.5-51.0 MCV 89 79-97 MCH 29.3 26.6-33.0 MCHC 33.0 31.5-35.7 RDW 14.6 12.3-15.4 Platelets 236 150-379 Neutrophils 65 Lymphs 27 Monocytes 6 Eos 2 Basos 0 Neutrophils (Absolute) 7.3 1.4-7.0 Lymphs (Absolute) 3.0 0.7-3.1 Monocytes(Absolute) 0.7 0.1-0.9 Eos (Absolute) 0.2 0.0-0.4 Baso (Absolute) 0.0 0.0-0.2 Immature Granulocytes 0 Immature Grans (Abs) 0.0 0.0-0.1 PSA 2016-04-24 Prostate Specific Ag, Serum 0.6 0.0-4.0 LIPID PANEL 2016-04-24 Cholesterol, Total 211 100-199 Triglycerides 118 0-149 HDL Cholesterol 41 >39 VLDL Cholesterol Isaiah 24 5-40 LDL Cholesterol Calc 146 0-99 CMP 2016-04-24 Glucose, Serum 142 65-99 BUN 17 6-24 Creatinine, Serum 0.73 0.76-1.27 eGFR If NonAfricn Am 110 >59 eGFR If Africn Am 127 >59 BUN/Creatinine Ratio 23 9-20 Sodium, Serum 140 134-144 Potassium, Serum 4.6 3.5-5.2 Chloride, Serum 106 96-106 Carbon Dioxide, Total 19 18-29 Calcium, Serum 8.8 8.7-10.2 Protein, Total, Serum 6.2 6.0-8.5 Albumin, Serum 3.7 3.5-5.5 Globulin, Total 2.5 1.5-4.5 A/G Ratio 1.5 1.1-2.5 Bilirubin, Total <0.2 0.0-1.2 Alkaline Phosphatase, S 100 39-117 AST (SGOT) 15 0-40 ALT (SGPT) 19 0-44 PROCEDURES Procedure Date Ordered Related Diagnosis Body Site GLYCATED HEMOGLOBIN TEST Apr 24, 2016 Office Visit, Est Pt., Level 3 Apr 24, 2016 VENIPUNCT, ROUTINE* Apr 24, 2016 ASSAY OF PSA, TOTAL Apr 24, 2016 COMPLETE CBC W/AUTO DIFF WBC Apr 24, 2016 COMPREHEN METABOLIC PANEL Apr 24, 2016 LIPID PANEL Apr 24, 2016 IMMUNIZATIONS No Known Immunizations
--- OUTSIDE RECORDS SUMMARY | 2017-11-21 16:20 | XMS REPORT ---
Author Author JAIRO SYKES Organization [facility], [place] Address [address] [place] [address] Care Team Providers Care Director Corporate Communications Name Role Phone JAIRO SYKES Unavailable PROBLEMS Type Condition ICD9-CM Code [id number] Code Onset Dates Condition Status SNOMED Code Problem Hypertension, benign I10 Active 83567740 Problem Type 2 diabetes mellitus with other specified complication E11.69 Active 21363651 Problem Dental abscess K04.7 Active 374756415 Problem Severe episode of recurrent major depressive disorder, with psychotic features F33.3 Active 61933431 Problem Generalized anxiety disorder F41.1 Active 03942147 Problem Controlled type 2 diabetes mellitus without complication, without long -term current use of insulin E11.9 Active 801199034 Problem Uncontrolled type 2 diabetes mellitus without complication, without long-term current use of insulin E11.65 Active 333686361 Problem Seasonal allergic rhinitis due to pollen J30.1 Active 90417322 Problem Low back pain of thoracolumbar region with sciatica M54.40 Active 127411236 Problem Depression 311 Active 06658058 Problem Anxiety F41.9 Active 63613302 Problem Low back pain M54.5 Active 555163321 Problem Bipolar 1 disorder F31.9 Active 951056417 Problem Major depressive disorder, single episode, unspecified F32.9 Active 317438898 Problem Diabetes type 2, controlled E11.9 Active 67274659 Problem Schizotypal disorder F21 Active 50644222 ALLERGIES No Information ENCOUNTERS Encounter Location Date Diagnosis [facility], [place] [address] [facility] [id number], [place] [address] Sep, [facility] [place] [address], [place] [address] August, [facility] [place] [address] [facility] [id number], [place] [address] Jul, Severe episode of recurrent major depressive disorder, with psychotic features F33.3 ; Generalized anxiety disorder F41.1 and BMI 40.0-44.9 , adult Z68.41 [place] [place] [address] [place] [id number] [place] [address] 59218- 6198 18 Jul, 2017 Type 2 diabetes mellitus with other specified complication E11.69 and Encounter for immunization Z23 [facility] [address] [id number] [place] [address] 46019- 8491 17 Jul, 2017 [place] [address] [id number] [place] [address] 42532- 7582 28 Jun, 2017 [place] [address] [id number] [place] [address] 70755- 9549 23 Jun, 2017 [place] [address] [id number] [place] [address] 48061- 0316 22 Jun, 2017 BMI 40.0-44.9, adult Z68.41 ; Severe episode of recurrent major depressive disorder, with psychotic features F33.3 and Generalized anxiety disorder F41.1 [place] [address] [id number] [place] [address] 84753- 8584 15 Jun, 2017 BMI 40.0-44.9, adult Z68.41 and Severe episode of recurrent major depressive disorder, with psychotic features F33.3 [place] [address], [place] [address] 14 Jun, 2017 Major depressive disorder, single episode, unspecified F32.9 [place] [id number] [place] [address] 49669- 9959 14 Jun, 2017 [place] [id number] [place] [address] 21352- 5091 14 Jun, 2017 BMI 40.0-44.9, adult Z68.41 and Severe episode of recurrent major depressive disorder, with psychotic features F33.3 [place] [address], [place] [address] 2642 13 Jun, 2017 BMI 40.0-44.9, adult Z68.41 ; Type 2 diabetes mellitus with other specified complication E11.69 and Bronchitis J40 [place] [address], [place] [address] 3[address] Jun, [place] [address] [id number] [place] [address] 18799- 9906 Mar, [place] [address] [id number] [place] [address] 27778- 6136 Feb, Type 2 diabetes mellitus with other specified complication E11.69 ; Generalized anxiety disorder F41.1 and Hypertension, benign I10 [place] [address] [place] [id number] [place] [address] 00083- 8830 Jan, Seasonal allergic rhinitis due to pollen J30.1 ; Viral gastroenteritis A08.4 and PTSD (post-traumatic stress disorder) F43.10 [place] [id number] [place] [address] 97361- 9359 Sep, [place] [address] [place] [id number] [place] [address] 11522- 6448 Sep, Erythema L53.9 [place] [address] [id number] [place] [address] 08306- 8821 August, Type 2 diabetes mellitus with other specified complication E11.69 and Hypertension, benign I10 [place] [address] [id number] [place] [address] 62167- 3050 August, Viral gastroenteritis A08.4 ; Type 2 diabetes mellitus with other specified complication E11.69 ; Hypertension, benign I10 and PTSD (post- traumatic stress disorder) F43.10 [place] [address], [place] [address] August, [place] [address] [place] [id number] [place] [address] 56547- 1838 August, PTSD (post-traumatic stress disorder) F43.10 [place] [id number] [place] [address] 28030- 0344 Jul, [place] [address] [id number] [place] [address] 82027- 6980 Jun, Type 2 diabetes mellitus with other specified complication E11.69 [facility] [id number] [place] [address] 37650 -5846 May, Body aches R52 ; Sore throat J02.9 ; Other viral agents as the cause of diseases classified elsewhere B97.89 and Acute upper respiratory infection, unspecified J06.9 [place] [address] 56269- 1620 May, [place] [address] 82512- 3232 May, Seasonal allergic rhinitis due to pollen J30.1 and Controlled type 2 diabetes mellitus without complication, without long-term current use of insulin E11.9 [place] [address] 68444- 7127 May, PTSD (post-traumatic stress disorder) F43.10 and Generalized anxiety disorder F41.1 [place] [address] 64591- 4833 Apr, Type 2 diabetes mellitus with other specified complication E11.69 ; Bronchitis J40 and Low back pain of thoracolumbar region with sciatica M54.40 [place] [address] [place] [id number] [place] [address] 88543- 6290 Apr, PTSD (post-traumatic stress disorder) F43.10 and Uncontrolled type 2 diabetes mellitus without complication, without long-term current use of insulin E11.65 [place] [address] [place] [id number] [place] [address] 49531- 8883 Mar, Type 2 diabetes mellitus with other specified complication E11.69 ; Urinary retention R33.9 and Urinary frequency R35.0 [place] [address] [place] [id number] [place] [address] 28288- 2265 Mar, Bronchitis J40 [place] [address] [place] [id number] [place] [address] 31170- 6006 Feb, Controlled type 2 diabetes mellitus without complication, without long-term current use of insulin E11.9 and Hypertension, benign I10 [place] [address] [place] [id number] [place] [address] 72961- 9337 Feb, PTSD (post-traumatic stress disorder) F43.10 [place] [address] [place] [id number] [place] [address] 19769- 4827 Jan, [place] [address] 33935- 2109 Jan, Uncontrolled type 2 diabetes mellitus without complication, without long-term current use of insulin E11.65 [place] [address] 58003- 9772 Dec, Diabetes type 2, controlled E11.9 ; Periodontal abscess K05.21 and Sinusitis, unspecified chronicity, unspecified location J32.9 [place] [address] 77722- 0998 Dec, [place] [address] [place] [id number] [place] [address] 16196- 3184 Dec, [place] [address] 57334- 8256 Nov, Chronic fatigue R53.82 [place] [address] [place] [id number] [place] [address] 87287- 5941 Oct, Common wart B07.8 [place] [address] [place] [id number] [place] [address] 82132- 0434 Sep, Type 2 diabetes mellitus with other specified complication E11.69 ; Common wart B07.8 and Dermatofibroma D23.9 [place] [address] 18202- 9372 Sep, PTSD (post-traumatic stress disorder) F43.10 and Generalized anxiety disorder F41.1 [place] [address] [place] [id number] [place] [address] 21391- 4597 Jul, [place] [address] [place] [id number] [place] [address] 32471- 4750 Jul, [place] [address] 58534- 9154 Jul, PTSD (post-traumatic stress disorder) F43.10 and Generalized anxiety disorder F41.1 [place] [address] [place] [id number] [place] [address] 12544- 0080 Jul, [place] [address] 82471- 8216 Jul, Obesity, morbid E66.01 ; Diabetes type 2, controlled E11.9 ; Hypertension, benign I10 and Arthritis M19.90 [place] [address] [place] [id number] [place] [address] 27999- 0208 Jul, Type 2 diabetes mellitus without complications E11.9 [place] [address] 24615- 9619 17 Jun, 2015 Type 2 diabetes mellitus with other specified complication E11.69 [place] [address] 94039- 5096 07 Jun, 2015 Type 2 diabetes mellitus with other specified complication E11.69 and Abdominal pain, generalized R10.84 [place] [address] [place] [id number] [place] [address] 48109- 4140 May, [place] [address] [place] [id number] [place] [address] 93208- 8493 May, Toothache K08.8 [place] [address] [place] [id number] [place] [address] 68681- 3016 Apr, [facility] [facility] [address] [id number] Mar, Dental examination Z01.20 and Dental caries K02.9 [place] [address] [place] [id number] [place] [address] 39591- 8236 Mar, [facility] [facility] [address], [place] [address] Mar, Dental examination Z01.20 and Dental caries K02.9 [place] [address] 107569- 4538 Feb, Dental abscess K04.7 and Type 2 diabetes mellitus with other specified complication E11.69 [place] [address] 349597- 5859 Feb, [place] [address] 05360- 9798 Feb, PTSD (post-traumatic stress disorder) F43.10 ; Generalized anxiety disorder F41.1 and Depressive disorder F32.9 [place] [address] [place] [id number] [place] [address] 59415- 6785 Jan, [place] [address] [place] [id number] [place] [address] 03041- 7961 Jan, [facility] [place] [address] [id number]- 8182 Jan, [place] [address] [place] [id number] [place] [address] 06301- 4221 Jan, [place] [address] [place] [id number] [place] [address] 92878- 2479 Dec, Vision changes 368.9 ; Diabetes 250.00 and Hypertension 401.[address] 75454- 0597 Dec, Generalized anxiety disorder 300.02 ; Depressive disorder, not elsewhere classified 311 and Posttraumatic stress disorder 309.81 [place] [address] 44539- 7056 Nov, [facility] [place] [address] 55833- 5235 Oct, [facility] [place] [address] [place] [id number] [place] [address] 871408- 4034 Sep, Erectile dysfunction 607.84 [facility] [place] [address] [facility] [id number], [place] [address]- 2195 Sep, [facility] [place] [address], [place] [address]- 1172 Sep, Generalized anxiety disorder 300.02 ; Depressive disorder, not elsewhere classified 311 and Posttraumatic stress disorder 309.81 [facility] [address] [facility] [id number], [place] [address]- 2992 August, [facility] [place] [address] [facility] [id number], [place] [address]- 3825 Jul, [facility] [place] [address] [place] [address] [id number], [place] [address]- 9125 Jul, [facility] [place] [address], [place] [address]- 7456 Jun, [facility] [place] [address], [place] [address]- 5661 Jun, [facility] [place] [address], [place] [address]- 3742 Jun, [facility] [place] [address] 1038 Jun, [facility] [place] [address] 3888 Jun, [facility] [place] [address] 3893 Jun, [facility] [place] [address] [place] [id number], [place] [address]- 9704 Jun, [facility] [id number], [place] [address]- 0799 Jun, [facility] [address] [facility] [id number], [place] [address]- 8498 Jun, [facility] [place] [address] [place] [id number], [place] [address]- 0078 Jun, [facility] [place] [facility] [address] [id number] [place] [address]- 3871 Jun, [facility] [place] [facility] [address] [id number] [place] [address]- 9400 Jun, [facility] [place] [facility] [address] [id number] [place] [address]- 9443 Mar, [facility] [place] [facility] [address] [id number] [place] [address]- 1212 Mar, [facility] [place] [facility] [address] [id number] [place] [address]- 3095 Jan, [facility] [place] [facility] [address] [id number] [place] [address]- 8107 Jan, [facility] [place] [facility] [address] [id number] [place] [address]- 1037 15 Dec, 2013 [facility] [place] [facility] [address] [id number] [place] [address]- 4205 15 Dec, 2013 [facility] [place] [facility] [address] [id number] [place] [address]- 3081 15 Dec, 2013 [facility] [place] [facility] [address] [id number] [place] [address]- 6771 15 Dec, 2013 [facility] [place] [facility] [address] [id number] [place] [address]- 7458 Dec, 2013 [facility] [place] [facility] [address] [id number] [place] [address]- 6024 Dec, 2013 [facility] [place] [facility] [address] [id number] [place] [address]- 9186 Dec, 2013 [facility] [place] [facility] [address] [id number] [place] [address]- 4871 Dec, 2013 [facility] [place] [facility] [address] [id number] [place] [address]- 3260 Dec, 2013 [facility] [place] [facility] [address] [id number] [place] [address]- 3398 Dec, [facility] [place] [facility] [address] [id number] [place] [address]- 7168 Nov, [facility] [place] [facility] [address] [id number] [place] [address]- 4120 Nov, [facility] [place] [facility] [address] [id number] [place] [address]- 1458 Oct, [facility] [place] [facility] [address] [id number] [place] [address]- 1187 Oct, [facility] [place] [facility] [address] [id number] [place] [address]- 0400 Oct, [facility] [place] [facility] [address] [id number] [place] [address]- 8321 Oct, [facility] [place] [facility] [address] [id number] [place] [address]- 0785 Oct, [facility] [place] [facility] [address] [id number] [place] [address]- 1239 Oct, [facility] [place] [facility] [address] [id number] [place] [address]- 2796 Sep, [facility] [place] [facility] [address] [id number] [place] [address]- 6091 Sep, [facility] [place] [facility] [address] [id number] [place] [address]- 6103 Sep, [facility] [place] [facility] [address] [id number] [place] [address]- 4574 Sep, [facility] [place] [facility] [address] [id number] [place] 4777 August, [facility] [place] [facility] [address] [id number] [place]- 7899 August, [facility] [place] [facility] [address] [id number] [place] 1904 August, [facility] [place] [facility] [address] [id number] [place] [address]- 6735 August, [facility] [address] [id number] [place] [address]- 2906 August, [facility] [place] [facility] [address] [id number] [place] [address]- 0456 Jul, [facility] [place] [facility] [address] [id number] [place] [address]- 7322 Jul, [facility] [place] [facility] [address] [id number] [place] [address]- 5079 Jul, [facility] [place] [facility] [address] [id number] [place] [address]- 1438 Jul, [facility] [place] [facility] [address] [id number] [place] [address]- 0312 Jul, [facility] [place] [facility] [address] [id number] [place] [address]- 6839 Jul, [facility] [address] [id number] [place] [address]- 5597 May, [facility] [place] [facility] [address] [id number] [place] [address]- 3796 May, [facility] [place] [facility] [address] [id number] [place] [address]- 0744 Apr, [facility] [place] [facility] [address] [id number] [place] [address]- 1636 Apr, [facility] [place] [facility] [address] [id number] [place] [address]- 2183 Apr, [facility] [place] [facility] [address] [id number] [place] [address]- 1587 Apr, [facility] [place] [facility] [address] [id number] [place] [address]- 1798 Apr, [facility] [place] [facility] [address] [id number] [place] [address]- 7553 Apr, [facility] [place] [facility] [address] [id number] [place] [address]- 1005 Feb, [facility] [place] [facility] [address] [id number] [place] [address]- 1484 Feb, [facility] [place] [facility] [address] [id number] [place] [address]- 8540 Feb, [facility] [place] [facility] [address] [id number] [place] [address]- 1165 Feb, [facility] [place] [facility] [address] [id number] [place] [address]- 2127 Feb, [facility] [place] [facility] [address] [id number] [place] [address]- 3906 Feb, [facility] [place] [facility] [address] [id number] [place] [address]- 4935 Jan, [facility] [place] [facility] [address] [id number] [place] [address]- 6143 Dec, [facility] [place] [facility] [address] [id number] [place] [address]- 5873 Oct, [facility] [place] [facility] [address] [id number] [place] [address]- 9483 August, [facility] [place] [facility] [address] [id number], [place] [address]- 3318 August, [facility] [place] [facility] [address] [id number], [place] [address]- 3254 August, [facility] [place] [facility] [address] [id number] [place] [address]- 1217 August, [facility] [place] [facility] [address] [id number], [place] [address]- 1981 24 Jul, 2012 [facility] [place] [facility] [address] [id number] [place] [address]- 3847 Jul, [facility] [place] [facility] [address] [id number] [place] [address]- 3735 18 Jul, 2012 [facility] [address] [id number] [place] [address]- 8641 18 Jul, 2012 [facility] [address] [id number] [place] [address]- 3636 16 Jul, 2012 [facility] [address] [id number] [place] [address]- 2994 20 Jun, 2012 [facility] [address] [id number] [place] [address]- 9647 20 Jun, 2012 [facility] [address] [id number] [place] [address]- 2688 15 Jun, 2012 [facility] [address] [id number] [place] [address]- 1612 13 Jun, 2012 [facility] [address] [id number] [place] [address]- 9273 22 May, 2012 [facility] [address] [id number] [place] [address]- 0006 13 May, 2012 [facility] [address] [id number] [place] [address]- 9901 15 Apr, 2012 [facility] [address] [id number] [place] [address]- 2802 26 Mar, 2012 [facility] [address] [id number] [place] [address]- 6376 26 Mar, 2012 [facility] [address] [id number] [place] [address]- 9445 14 Mar, 2012 [facility] [place] [facility] [address] [id number] [place] [address]- 3190 14 Mar, 2012 [facility] [place] [facility] [address] [id number] [place] [address]- 1041 14 Mar, 2012 [facility] [address] [id number] [place] [address]- 5350 14 Mar, 2012 [facility] [place] [facility] [address] [id number] [place] [address]- 9655 Mar, [facility] [place] [facility] [address] [id number] [place] [address] Mar, [facility] [place] [facility] [address] [id number] [place] [address] Mar, [facility] [place] [facility] [address] [id number] [place] [address] Feb, [facility] [place] [facility] [address] [id number] [place] [address] Feb, [facility] [place] [facility] [address] [id number] [place] [address] Feb, [facility] [place] [facility] [address] [id number] [place] [address] Feb, [facility] [place] [facility] [address] [id number] [place] [address] Feb, [facility] [place] [facility] [address] [id number] [place] [address] Feb, [facility] [place] [facility] [address] [id number] [place] [address] Feb, [facility] [place] [facility] [address] [id number] [place] [address] Feb, [facility] [place] [facility] [address] [id number], [place] [address] Jan, [facility] [place] [facility] [address] [id number] [place] [address] Jan, [facility] [place] [facility] [address] [id number] [place] [address] Jan, [facility] [place] [facility] [address] [id number] [place] [address] Jan, [facility] [place] [facility] [address] [id number], [place] [address] Jan, [facility] [place] [facility] [address] [id number] [place] [address] Jan, [facility] [place] [facility] [address] [id number] [place] [address] Jan, [facility] [place] [facility] [address] [id number] [place] [address] Jan, [facility] [place] [facility] [address] [id number] [place] [address] Jan, [facility] [place] [facility] [address] [id number] [place] [address] Jan, [facility] [place] [facility] [address] [id number] [place] [address] Dec, [facility] [place] [facility] [address] [id number] [place] [address] Dec, [facility] [place] [facility] [address] [id number] [place] [address] Dec, [facility] [place] [facility] [address] [id number] [place] [address] Nov, [facility] [place] [facility] [address] [id number] [place] [address] Nov, [facility] [place] [facility] [address] [id number] [place] [address] Nov, [facility] [place] [facility] [address] [id number] [place] [address] Nov, [facility] [place] [facility] [address] [id number] [place] [address] Oct, [facility] [place] [facility] [address] [id number] [place] [address] Oct, [facility] [place] [facility] [address] [id number] [place] [address] Sep, [facility] [place] [facility] [address] [facility] [id number] [place] [address] 16 Sep, 2011 [facility] [place] [address] [facility] [id number] [place] [address] Apr, [facility] [place] [address] [facility] [id number] [place] [address] Apr, IMMUNIZATIONS No Known Immunizations SOCIAL HISTORY Never Assessed REASON FOR VISIT Requests return call PLAN OF CARE VITAL SIGNS MEDICATIONS Unknown Medications RESULTS No Results PROCEDURES No Known procedures INSTRUCTIONS MEDICATIONS ADMINISTERED No Known Medications MEDICAL (GENERAL) HISTORY Type Description Date Medical History hypertension Medical History hyperlipidemia Medical History psychiatric disorders Medical History Type 2 diabetes Surgical History dental surgery Hospitalization History pneumonia 10/2006
--- OUTSIDE RECORDS SUMMARY | 2017-11-21 16:20 | XMS REPORT ---
Author Author JAIRO SYKES [facility] Address [address] [place] [address] Care Team Providers Care Runner Worker Name Role Phone JAIRO SYKES Unavailable PROBLEMS Type Condition ICD9-CM Code [id number] Code Onset Dates Condition Status SNOMED Code Problem Low back pain M54.5 Active 286496752 Problem Schizotypal disorder F21 Active 28115422 Problem Major depressive disorder, single episode, unspecified F32.9 Active 792942209 Problem Seasonal allergic rhinitis due to pollen J30.1 Active 84566112 Problem Low back pain of thoracolumbar region with sciatica M54.40 Active 733152354 Problem Dental abscess K04.7 Active 078275511 Problem Type 2 diabetes mellitus with other specified complication E11.69 Active 60400754 Problem Controlled type 2 diabetes mellitus without complication, without long -term current use of insulin E11.9 Active 375384842 Problem Uncontrolled type 2 diabetes mellitus without complication, without long-term current use of insulin E11.65 Active 110452216 Problem Hypertension, benign I10 Active 08858544 Problem Bipolar 1 disorder F31.9 Active 449730221 Problem Diabetes type 2, controlled E11.9 Active 31299592 Problem Depression 311 Active 54244350 Problem Anxiety F41.9 Active 95013594 ALLERGIES No Information SOCIAL HISTORY Never Assessed PLAN OF CARE VITAL SIGNS MEDICATIONS Unknown Medications RESULTS Name Result Date Reference Range CBC 2016-09-07 WBC 9.8 3.4-10.8 RBC 5.27 4.14-5.80 Hemoglobin 15.6 12.6-17.7 Hematocrit 46.0 37.5-51.0 MCV 87 79-97 MCH 29.6 26.6-33.0 MCHC 33.9 31.5-35.7 RDW 13.9 12.3-15.4 Platelets 186 150-379 Neutrophils 60 Lymphs 33 Monocytes 5 Eos 2 Basos 0 Neutrophils (Absolute) 5.7 1.4-7.0 Lymphs (Absolute) 3.3 0.7-3.1 Monocytes(Absolute) 0.5 0.1-0.9 Eos (Absolute) 0.2 0.0-0.4 Baso (Absolute) 0.0 0.0-0.2 Immature Granulocytes 0 Immature Grans (Abs) 0.0 0.0-0.1 LIPID PANEL 2016-09-07 Cholesterol, Total 197 100-199 Triglycerides 140 0-149 HDL Cholesterol 34 >39 VLDL Cholesterol Isaiah 28 5-40 LDL Cholesterol Calc 135 0-99 Comment: CMP 2016-09-07 Glucose, Serum 242 65-99 BUN 16 6-24 Creatinine, Serum 0.83 0.76-1.27 eGFR If NonAfricn Am 104 >59 eGFR If Africn Am 120 >59 BUN/Creatinine Ratio 19 9-20 Sodium, Serum 138 134-144 Potassium, Serum 4.3 3.5-5.2 Chloride, Serum 103 96-106 Carbon Dioxide, Total 20 18-29 Calcium, Serum 8.7 8.7-10.2 Protein, Total, Serum 6.7 6.0-8.5 Albumin, Serum 3.8 3.5-5.5 Globulin, Total 2.9 1.5-4.5 A/G Ratio 1.3 1.2-2.2 Bilirubin, Total 0.3 0.0-1.2 Alkaline Phosphatase, S 119 39-117 AST (SGOT) 10 0-40 ALT (SGPT) 20 0-44 PROCEDURES Procedure Date Ordered Result Body Site COMPLETE CBC W/AUTO DIFF WBC September 07, 2016 LIPID PANEL September 07, 2016 VENIPUNCT, ROUTINE* September 07, 2016 COMPREHEN METABOLIC PANEL September 07, 2016 IMMUNIZATIONS No Known Immunizations MEDICAL (GENERAL) HISTORY Type Description Date Medical History hypertension Medical History hyperlipidemia Medical History psychiatric disorders Medical History Type 2 diabetes Surgical History dental surgery Hospitalization History pneumonia 10/2006
--- OUTSIDE RECORDS SUMMARY | 2017-11-21 16:21 | XMS REPORT ---
Author Author JAIRO SYKES Organization [facility] Address [address] [place] [address] Care Team Providers Care Church History Teacher Name Role Phone JAIRO SYKES Unavailable PROBLEMS Type Condition ICD9-CM Code [id number] Code Onset Dates Condition Status SNOMED Code Problem Low back pain M54.5 Active 192520980 Problem Schizotypal disorder F21 Active 61094266 Problem Major depressive disorder, single episode, unspecified F32.9 Active 633709076 Problem Seasonal allergic rhinitis due to pollen J30.1 Active 52322265 Problem Low back pain of thoracolumbar region with sciatica M54.40 Active 262957117 Problem Dental abscess K04.7 Active 741388061 Problem Type 2 diabetes mellitus with other specified complication E11.69 Active 61874081 Problem Controlled type 2 diabetes mellitus without complication, without long -term current use of insulin E11.9 Active 256717797 Problem Uncontrolled type 2 diabetes mellitus without complication, without long-term current use of insulin E11.65 Active 195012727 Problem Hypertension, benign I10 Active 42515660 Problem Bipolar 1 disorder F31.9 Active 879576148 Problem Diabetes type 2, controlled E11.9 Active 23494646 Problem Depression 311 Active 04644785 Problem Anxiety F41.9 Active 86295242 ALLERGIES Substance Reaction Event Type Date Status Zyban rash Drug Allergy August, Active Lipitor Unknown Drug Allergy August, Active SOCIAL HISTORY Never Assessed PLAN OF CARE VITAL SIGNS Height 75 in 2016-09-04 Weight 358.6 lbs 2016-09-04 Temperature 98.0 degrees Fahrenheit 2016-09-04 Heart Rate 88 bpm 2016-09-04 Respiratory Rate 22 2016-09-04 BMI 44.82 kg/m2 2016-09-04 Blood pressure systolic 150 mmHg 2016-09-04 Blood pressure diastolic 92 mmHg 2016-09-04 MEDICATIONS Medication Instructions Dosage Frequency Start Date End Date Duration Status Pravastatin Sodium 20 mg Orally Once a day. 1 tablet Jan, Active Metformin HCl 1000 MG Orally Twice a day, voucher 1st fill only 1 tablet with meals Active Fish Oil 1000 MG Orally twice a day. please voucher 2 capsules Jul, Active Toprol XL 50 mg Orally Once a day 1 tablet 24h Jun, 90 days Active Claritin 10 mg Orally Once a day, voucher 1st fill. 1 tablet May, Nov, 30 day(s) Active Topamax 100 mg Orally daily 1 tablet 24h Jun, Active HydrOXYzine Pamoate 25 MG Orally BID anxiety 1 capsule as needed May, Active Zoloft 100 mg Orally Once a day 1.5 tablet 24h Mar, Active RESULTS No Results PROCEDURES No Known procedures IMMUNIZATIONS No Known Immunizations MEDICAL (GENERAL) HISTORY Type Description Date Medical History hypertension Medical History hyperlipidemia Medical History psychiatric disorders Medical History Type 2 diabetes Surgical History dental surgery Hospitalization History pneumonia 10/2006
--- OUTSIDE RECORDS SUMMARY | 2017-11-21 16:21 | XMS REPORT ---
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 Name Role Phone JAIRO SYKES Unavailable PROBLEMS Type Condition ICD9-CM Code [id number] Code Onset Dates Condition Status SNOMED Code Problem Low back pain M54.5 Active 029131875 Problem Schizotypal disorder F21 Active 88723855 Problem Major depressive disorder, single episode, unspecified F32.9 Active 293013143 Problem Seasonal allergic rhinitis due to pollen J30.1 Active 18216106 Problem Low back pain of thoracolumbar region with sciatica M54.40 Active 988476409 Problem Dental abscess K04.7 Active 980884726 Problem Type 2 diabetes mellitus with other specified complication E11.69 Active 22558742 Problem Controlled type 2 diabetes mellitus without complication, without long -term current use of insulin E11.9 Active 415128567 Problem Uncontrolled type 2 diabetes mellitus without complication, without long-term current use of insulin E11.65 Active 587940523 Problem Hypertension, benign I10 Active 51960581 Problem Bipolar 1 disorder F31.9 Active 677023167 Problem Diabetes type 2, controlled E11.9 Active 81317861 Problem Depression 311 Active 16223527 Problem Anxiety F41.9 Active 56730500 ALLERGIES Substance Reaction Event Type Date Status Zyban rash Drug Allergy Apr, Active Lipitor Unknown Drug Allergy Apr, Active SOCIAL HISTORY No smoking Hx information available PLAN OF CARE VITAL SIGNS Height 75 in 2016-05-25 Weight 347.6 lbs 2016-05-25 Temperature 98.2 degrees Fahrenheit 2016-05-25 Heart Rate 82 bpm 2016-05-25 Respiratory Rate 20 2016-05-25 BMI 43.44 kg/m2 2016-05-25 Blood pressure systolic 124 mmHg 2016-05-25 Blood pressure diastolic 82 mmHg 2016-05-25 MEDICATIONS Medication Instructions Dosage Frequency Start Date End Date Duration Status Topamax 100 MG Orally daily 1 tablet 24h Jun, 90 days Active Metformin HCl 1000 MG Orally Twice a day, voucher 1st fill only 1 tablet with meals Active Doxycycline Hyclate 100 MG Orally every 12 hrs 1 capsule 12h Apr, Apr, 5 day(s) Active Fish Oil 1000 MG Orally twice a day. please voucher 2 capsules Jul, Active Toprol XL 50 mg Orally Once a day 1 tablet 24h Jun, 90 days Active Zoloft 100 MG Orally Once a day 1.5 tablet 24h Mar, 30 days Active ProAir HFA 108 (90 Base) MCG/ACT Inhalation 4 times a day. please voucher 2 puffs as needed Jul, Active Pravastatin Sodium 20 mg Orally Once a day. 1 tablet Jan, Active RESULTS Name Result Date Reference Range MICROALBUMIN, URINE (IN HOUSE) 2016-05-25 MICROALBUMIN ABNORMAL Lot # [id number] Exp date Clarity Clear Color Geovanna ALB 150 CRE 300 A:C (IN HOUSE) 30-300 Control + Control - Lot # [id number] Exp date 11/2016 UA LONG DIP (IN HOUSE) 2016-05-25 Lot # [id number] Exp date Clarity Clear Color Geovanna Odor No GLU Negative ETELVINA Negative KET Negative SG >=1.030 BLO Negative pH 5.5 Protein 1+ URO 0.2 NIT Negative RUSSELL Negative Lot # [id number] Exp date 11/2016 MICROALBUMIN/CREATININE RATIO, URINE 2016-05-25 Creatinine, Urine 218.0 Not Estab. Microalbumin, Urine 99.6 Not Estab. Microalb/Creat Ratio 45.7 0.0-30.0 PROCEDURES Procedure Date Ordered Related Diagnosis Body Site MICROALBUMIN, SEMIQUANT May 25, 2016 ASSAY OF URINE CREATININE May 25, 2016 THER/PROPH/DIAG INJ, SC/IM May 25, 2016 URINALYSIS, AUTO, W/O SCOPE May 25, 2016 MICROALBUMIN, QUANTITATIVE May 25, 2016 TORADOL (IM) 60 MG/2ML (UP TO 15 MG) May 25, 2016 Office Visit, Est Pt., Level 3 May 25, 2016 IMMUNIZATIONS Vaccine Route Administration Date Status TORADOL (IM) 60 MG/2ML (UP TO 15 MG) IM Intramuscular May 25, 2016 Administered
--- OUTSIDE RECORDS SUMMARY | 2017-11-21 16:21 | XMS REPORT ---
Author Author RafaelMARISELA ZAVALA Organization [facility] Address [address] [place] [address] Care Team Providers Care Improvement Manager Name Role Phone MARISELA Hale Unavailable PROBLEMS Type Condition ICD9-CM Code [id number] Code Onset Dates Condition Status SNOMED Code Problem Low back pain M54.5 Active 319884694 Problem Schizotypal disorder F21 Active 43505355 Problem Major depressive disorder, single episode, unspecified F32.9 Active 596935384 Problem Seasonal allergic rhinitis due to pollen J30.1 Active 18904079 Problem Low back pain of thoracolumbar region with sciatica M54.40 Active 500147331 Problem Dental abscess K04.7 Active 806847693 Problem Type 2 diabetes mellitus with other specified complication E11.69 Active 97001025 Problem Controlled type 2 diabetes mellitus without complication, without long -term current use of insulin E11.9 Active 837236089 Problem Uncontrolled type 2 diabetes mellitus without complication, without long-term current use of insulin E11.65 Active 295690210 Problem Hypertension, benign I10 Active 30308987 Problem Bipolar 1 disorder F31.9 Active 958798086 Problem Diabetes type 2, controlled E11.9 Active 42811545 Problem Depression 311 Active 01222625 Problem Anxiety F41.9 Active 31384747 ALLERGIES Substance Reaction Event Type Date Status Zyban rash Drug Allergy May, Active Lipitor Unknown Drug Allergy May, Active SOCIAL HISTORY Never Assessed PLAN OF CARE Activity Details Follow Up 3 Months Reason: VITAL SIGNS Height 75 in 2016-06-01 Weight 346.0 lbs 2016-06-01 Heart Rate 84 bpm 2016-06-01 Respiratory Rate 20 2016-06-01 BMI 43.24 kg/m2 2016-06-01 Blood pressure systolic 121 mmHg 2016-06-01 Blood pressure diastolic 79 mmHg 2016-06-01 MEDICATIONS Medication Instructions Dosage Frequency Start Date End Date Duration Status Pravastatin Sodium 20 mg Orally Once a day. 1 tablet Jan, Active ProAir HFA 108 (90 Base) MCG/ACT Inhalation 4 times a day. please voucher 2 puffs as needed Jul, Active HydrOXYzine Pamoate 25 MG Orally BID anxiety 1 capsule as needed May, 30 day(s) Active Metformin HCl 1000 MG Orally Twice [...] Orally daily 1 tablet 24h Jun, Active RESULTS No Results PROCEDURES No Known procedures IMMUNIZATIONS No Known Immunizations MEDICAL (GENERAL) HISTORY Type Description Date Medical History hypertension Medical History hyperlipidemia Medical History psychiatric disorders Medical History Type 2 diabetes Surgical History dental surgery Hospitalization History pneumonia 10/2006
--- OUTSIDE RECORDS SUMMARY | 2017-11-21 16:21 | XMS REPORT ---
Author Author JAIRO SYKES Organization [facility] Address [address] [place] [address] Care Team Providers Care Silhouette Artist Name Role Phone JAIRO SYKES Unavailable PROBLEMS Type Condition ICD9-CM Code JCU79-CF Code Onset Dates Condition Status SNOMED Code Problem Low back pain M54.5 Active 066945487 Problem Schizotypal disorder F21 Active 48356970 Problem Major depressive disorder, single episode, unspecified F32.9 Active 946567412 Problem Seasonal allergic rhinitis due to pollen J30.1 Active 41952605 Problem Low back pain of thoracolumbar region with sciatica M54.40 Active 187945358 Problem Dental abscess K04.7 Active 654666092 Problem Type 2 diabetes mellitus with other specified complication E11.69 Active 31290372 Problem Controlled type 2 diabetes mellitus without complication, without long -term current use of insulin E11.9 Active 760507723 Problem Uncontrolled type 2 diabetes mellitus without complication, without long-term current use of insulin E11.65 Active 640624040 Problem Hypertension, benign I10 Active 13717093 Problem Bipolar 1 disorder F31.9 Active 828293540 Problem Diabetes type 2, controlled E11.9 Active 15936078 Problem Depression 311 Active 20646255 Problem Anxiety F41.9 Active 10873719 ALLERGIES No Information SOCIAL HISTORY Never Assessed PLAN OF CARE VITAL SIGNS MEDICATIONS Medication Instructions Dosage Frequency Start Date End Date Duration Status Claritin 10 mg Orally Once a day, voucher 1st fill. 1 tablet May, Nov, 30 day(s) Active RESULTS No Results PROCEDURES No Known procedures IMMUNIZATIONS No Known Immunizations MEDICAL (GENERAL) HISTORY Type Description Date Medical History hypertension Medical History hyperlipidemia Medical History psychiatric disorders Medical History Type 2 diabetes Surgical History dental surgery Hospitalization History pneumonia 10/2006
--- OUTSIDE RECORDS SUMMARY | 2017-11-21 16:21 | XMS REPORT ---
Author Author JAIRO SYKES Organization [facility] Address [address] [place] [address] Care Team Providers Care Continuous Improvement Facilitator Name Role Phone JAIRO SYKES Unavailable PROBLEMS Type Condition ICD9-CM Code [id number] Code Onset Dates Condition Status SNOMED Code Problem Low back pain M54.5 Active 915014775 Problem Schizotypal disorder F21 Active 13376287 Problem Major depressive disorder, single episode, unspecified F32.9 Active 214450986 Problem Seasonal allergic rhinitis due to pollen J30.1 Active 83585942 Problem Low back pain of thoracolumbar region with sciatica M54.40 Active 673073185 Problem Dental abscess K04.7 Active 199957014 Problem Type 2 diabetes mellitus with other specified complication E11.69 Active 25337781 Problem Controlled type 2 diabetes mellitus without complication, without long -term current use of insulin E11.9 Active 658754535 Problem Uncontrolled type 2 diabetes mellitus without complication, without long-term current use of insulin E11.65 Active 447230958 Problem Hypertension, benign I10 Active 44242780 Problem Bipolar 1 disorder F31.9 Active 112129329 Problem Diabetes type 2, controlled E11.9 Active 54032118 Problem Depression 311 Active 60642129 Problem Anxiety F41.9 Active 12403659 ALLERGIES Unknown Allergies SOCIAL HISTORY No smoking Hx information available PLAN OF CARE VITAL SIGNS MEDICATIONS Medication Instructions Dosage Frequency Start Date End Date Duration Status Topamax 100 MG Orally daily 1 tablet 24h Jun, 90 days Active Zoloft 100 MG Orally Once a day 1.5 tablet 24h Mar, 30 days Active Toprol XL 50 mg Orally Once a day 1 tablet 24h Jun, 90 days Active RESULTS No Results PROCEDURES No Known procedures IMMUNIZATIONS No Known Immunizations
--- OUTSIDE RECORDS SUMMARY | 2017-11-21 16:21 | XMS REPORT ---
Author Author DANII LLANES Organization [facility] Address [address] [place] [address] Care Team Providers Care Leak Gang Supervisor Name Role Phone DANII LLANES Unavailable PROBLEMS Type Condition ICD9-CM Code CLA60-WV Code Onset Dates Condition Status SNOMED Code Problem Low back pain M54.5 Active 447992037 Problem Schizotypal disorder F21 Active 35087408 Problem Major depressive disorder, single episode, unspecified F32.9 Active 801979795 Problem Seasonal allergic rhinitis due to pollen J30.1 Active 85620078 Problem Low back pain of thoracolumbar region with sciatica M54.40 Active 750559410 Problem Dental abscess K04.7 Active 327288501 Problem Type 2 diabetes mellitus with other specified complication E11.69 Active 93611127 Problem Controlled type 2 diabetes mellitus without complication, without long -term current use of insulin E11.9 Active 933105013 Problem Uncontrolled type 2 diabetes mellitus without complication, without long-term current use of insulin E11.65 Active 867700452 Problem Hypertension, benign I10 Active 07800919 Problem Bipolar 1 disorder F31.9 Active 192598665 Problem Diabetes type 2, controlled E11.9 Active 83016543 Problem Depression 311 Active 09099112 Problem Anxiety F41.9 Active 62192206 ALLERGIES Substance Reaction Event Type Date Status Zyban rash Drug Allergy May, Active Lipitor Unknown Drug Allergy May, Active SOCIAL HISTORY Never Assessed PLAN OF CARE Activity Details Follow Up prn Reason: VITAL SIGNS Height 75 in 2016-06-27 Weight 352.6 lbs 2016-06-27 Temperature 98.0 degrees Fahrenheit 2016-06-27 Heart Rate 80 bpm 2016-06-27 Respiratory Rate 20 2016-06-27 BMI 44.07 kg/m2 2016-06-27 Blood pressure systolic 136 mmHg 2016-06-27 Blood pressure diastolic 86 mmHg 2016-06-27 MEDICATIONS Medication Instructions Dosage Frequency Start Date End Date Duration Status Fish Oil 1000 MG Orally twice a day. please voucher 2 capsules 13 Apr, 2016 Active ProAir HFA 108 (90 Base) MCG/ACT Inhalation 4 times a day. please voucher 2 puffs as needed Jul, Active Metformin HCl 1000 MG Orally Twice a day, voucher 1st fill only 1 tablet with meals Active Claritin 10 mg Orally Once a day, voucher 1st fill. 1 tablet May, Nov, 30 day(s) Active HydrOXYzine Pamoate 25 MG Orally BID anxiety 1 capsule as needed May, 30 day(s) Active Pravastatin Sodium 20 mg Orally Once a day. 1 tablet Jan, Active Toprol XL 50 mg Orally Once a day 1 tablet 24h Jun, 90 days Active Zoloft 100 mg Orally Once a day 1.5 tablet 24h Mar, Active Topamax 100 mg Orally daily 1 tablet 24h Jun, Active RESULTS Name Result Date Reference Range INFLUENZA A & B (IN HOUSE) 2016-06-27 INFLUENZA A negative INFLUENZA B negative Control + Lot # [id number] Exp date 2017 STREP A (IN HOUSE) 2016-06-27 STREP A negative Control + Lot # [id number] Exp date jan 15 PROCEDURES Procedure Date Ordered Result Body Site INFLUENZA ASSAY W/OPTIC Jun 27, 2016 STREP A ASSAY W/OPTIC Jun 27, 2016 IMMUNIZATIONS No Known Immunizations MEDICAL (GENERAL) HISTORY Type Description Date Medical History hypertension Medical History hyperlipidemia Medical History psychiatric disorders Medical History Type 2 diabetes Surgical History dental surgery Hospitalization History pneumonia 10/2006
--- OUTSIDE RECORDS SUMMARY | 2017-11-21 16:21 | XMS REPORT ---
Author Author RafaelMARISELA ZAVALA Organization [facility] Address [address] [place] [address] Care Team Providers Care Writer Producer Name Role Phone harmonyMARISELA Mariano Unavailable PROBLEMS Type Condition ICD9-CM Code [id number] Code Onset Dates Condition Status SNOMED Code Problem Low back pain M54.5 Active 194275957 Problem Schizotypal disorder F21 Active 72068533 Problem Major depressive disorder, single episode, unspecified F32.9 Active 423675796 Problem Seasonal allergic rhinitis due to pollen J30.1 Active 18782985 Problem Low back pain of thoracolumbar region with sciatica M54.40 Active 653023392 Problem Dental abscess K04.7 Active 303450166 Problem Type 2 diabetes mellitus with other specified complication E11.69 Active 26448543 Problem Controlled type 2 diabetes mellitus without complication, without long -term current use of insulin E11.9 Active 283038002 Problem Uncontrolled type 2 diabetes mellitus without complication, without long-term current use of insulin E11.65 Active 824591420 Problem Hypertension, benign I10 Active 73164860 Problem Bipolar 1 disorder F31.9 Active 554988487 Problem Diabetes type 2, controlled E11.9 Active 87852463 Problem Depression 311 Active 10027724 Problem Anxiety F41.9 Active 14179997 ALLERGIES Substance Reaction Event Type Date Status Zyban rash Drug Allergy August, Active Lipitor Unknown Drug Allergy August, Active SOCIAL HISTORY Never Assessed PLAN OF CARE Activity Details Follow Up 6-8 weeks with new provider. Reason: VITAL SIGNS Height 75 in 2016-08-29 Weight 370.0 lbs 2016-08-29 Heart Rate 96 bpm 2016-08-29 Respiratory Rate 22 2016-08-29 BMI 46.24 kg/m2 2016-08-29 Blood pressure systolic 175 mmHg 2016-08-29 Blood pressure diastolic 80 mmHg 2016-08-29 MEDICATIONS Medication Instructions Dosage Frequency Start Date End Date Duration Status Topamax 100 mg Orally daily 1 tablet [...]
--- OUTSIDE RECORDS SUMMARY | 2017-11-21 16:23 | XMS REPORT ---
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 Name Role Phone JAIRO SYKES Unavailable PROBLEMS Type Condition ICD9-CM Code [id number] Code Onset Dates Condition Status SNOMED Code Problem Hypertension, benign I10 Active 15870712 Problem Type 2 diabetes mellitus with other specified complication E11.69 Active 80626550 Problem Dental abscess K04.7 Active 807380325 Problem Severe episode of recurrent major depressive disorder, with psychotic features F33.3 Active 22070359 Problem Generalized anxiety disorder F41.1 Active 55910257 Problem Controlled type 2 diabetes mellitus without complication, without long -term current use of insulin E11.9 Active 728440642 Problem Uncontrolled type 2 diabetes mellitus without complication, without long-term current use of insulin E11.65 Active 180202610 Problem Seasonal allergic rhinitis due to pollen J30.1 Active 71797691 Problem Low back pain of thoracolumbar region with sciatica M54.40 Active 435244683 Problem Depression 311 Active 13135559 Problem Anxiety F41.9 Active 33340778 Problem Low back pain M54.5 Active 000642749 Problem Bipolar 1 disorder F31.9 Active 418041488 Problem Major depressive disorder, single episode, unspecified F32.9 Active 406029491 Problem Diabetes type 2, controlled E11.9 Active 42082168 Problem Schizotypal disorder F21 Active 29245752 ALLERGIES Substance Reaction Event Type Date Status Zyban rash Drug Allergy Feb, Active Lipitor Unknown Drug Allergy Feb, Active ENCOUNTERS Encounter Location Date Diagnosis [facility] [address] [facility] [id number] [address] Sep, [facility] [address] [facility] [id number] [address] August, [facility] [address] [facility] [id number] [place] [address] Jul, Severe episode of recurrent major depressive disorder, with psychotic features F33.3 ; Generalized anxiety disorder F41.1 and BMI 40.0-44.9 , adult Z68.41 [facility] [id number] [place] [address] 01045- 6334 Jul, Type 2 diabetes mellitus with other specified complication E11.69 and Encounter for immunization Z23 [place] [id number] [place] [address] 69709- 1113 Jul, [place] [id number] [place] [address] 51389- 1851 Jun, [place] [id number] [place] [address] 56352- 7950 Jun, [facility] [place] [id number] [place] [address] 85087- 5733 Jun, BMI 40.0-44.9, adult Z68.41 ; Severe episode of recurrent major depressive disorder, with psychotic features F33.3 and Generalized anxiety disorder F41.1 [place] [id number] [place] [address] 62278- 5332 15 Jun, 2017 BMI 40.0-44.9, adult Z68.41 and Severe episode of recurrent major depressive disorder, with psychotic features F33.3 [place] [address] [address] 3[address] 14 Jun, 2017 Major depressive disorder, single episode, unspecified F32.9 [place] [address] [address]- 9773 14 Jun, 2017 [place] [id number] [place] [address] 62400- 5848 14 Jun, 2017 BMI 40.0-44.9, adult Z68.41 and Severe episode of recurrent major depressive disorder, with psychotic features F33.3 [place] [id number] [place] [address] 61312- 7262 13 Jun, 2017 BMI 40.0-44.9, adult Z68.41 ; Type 2 diabetes mellitus with other specified complication E11.69 and Bronchitis J40 [place] [id number] [place] [address] 16586- 3878 Jun, [place] [id number] [place] [address] 36016- 1799 Mar, [place] [address] [address]10- 2837 Feb, Type 2 diabetes mellitus with other specified complication E11.69 ; Generalized anxiety disorder F41.1 and Hypertension, benign I10 [place] [id number] [place] [address] 29731- 5808 Jan, Seasonal allergic rhinitis due to pollen J30.1 ; Viral gastroenteritis A08.4 and PTSD (post-traumatic stress disorder) F43.10 [place] [id number] [place] [address] 19731- 6341 Sep, [place] [id number] [place] [address] 23123- 8840 Sep, Erythema L53.9 [place] [id number] [place] [address] 82945- 2536 August, Type 2 diabetes mellitus with other specified complication E11.69 and Hypertension, benign I10 [place] [id number] [place] [address] 59390- 0912 August, Viral gastroenteritis A08.4 ; Type 2 diabetes mellitus with other specified complication E11.69 ; Hypertension, benign I10 and PTSD (post- traumatic stress disorder) F43.10 [place] [id number] [place] [address] 65163- 1469 August, [place] [id number] [place] [address] 12108- 6589 August, PTSD (post-traumatic stress disorder) F43.10 [place] [id number] [place] [address] 46793- 4189 Jul, [facility] [id number] [place] [address] 87803- 9505 Jun, Type 2 diabetes mellitus with other specified complication E11.69 [facility] [id number] [place] [address] 79603 -2875 May, Body aches R52 ; Sore throat J02.9 ; Other viral agents as the cause of diseases classified elsewhere B97.89 and Acute upper respiratory infection, unspecified J06.9 [facility] [id number] [place] [address] 07718- 7214 May, [place] [address] 84771- 7924 May, Seasonal allergic rhinitis due to pollen J30.1 and Controlled type 2 diabetes mellitus without complication, without long-term current use of insulin E11.9 [place] [address] 27072- 8234 May, PTSD (post-traumatic stress disorder) F43.10 and Generalized anxiety disorder F41.[address] 13151- 7940 Apr, Type 2 diabetes mellitus with other specified complication E11.69 ; Bronchitis J40 and Low back pain of thoracolumbar region with sciatica M54.40 [place] [id number] [place] [address] 86125- 9435 Apr, PTSD (post-traumatic stress disorder) F43.10 and Uncontrolled type 2 diabetes mellitus without complication, without long-term current use of insulin E11.65 [place] [id number] [place] [address] 85213- 6000 Mar, Type 2 diabetes mellitus with other specified complication E11.69 ; Urinary retention R33.9 and Urinary frequency R35.0 [place] [id number] [place] [address] 69850- 2720 Mar, Bronchitis J40 [place] [address] [address]- 8561 Feb, Controlled type 2 diabetes mellitus without complication, without long-term current use of insulin E11.9 and Hypertension, benign I10 [place] [id number] [place] [address] 57978- 9180 Feb, PTSD (post-traumatic stress disorder) F43.10 [place] [id number] [place] [address] 89952- 2124 Jan, [place] [id number] [place] [address] 53977- 6912 Jan, Uncontrolled type 2 diabetes mellitus without complication, without long-term current use of insulin E11.65 [place] [id number] [place] [address] 53332- 6840 Dec, Diabetes type 2, controlled E11.9 ; Periodontal abscess K05.21 and Sinusitis, unspecified chronicity, unspecified location J32.9 [place] [id number] [place] [address] 49248- 8430 Dec, [place] [id number] [place] [address] 25113- 3403 Dec, [place] [id number] [place] [address] 99080- 1715 Nov, Chronic fatigue R53.82 [place] [id number] [place] [address] 16392- 1443 Oct, Common wart B07.8 [place] [id number] [place] [address] 70665- 8824 Sep, Type 2 diabetes mellitus with other specified complication E11.69 ; Common wart B07.8 and Dermatofibroma D23.9 [place] [id number] [place] [address] 74857- 8193 Sep, PTSD (post-traumatic stress disorder) F43.10 and Generalized anxiety disorder F41.1 [place] [address] [place] [address]- 6717 Jul, [facility] [id number] [place] [address] 63089- 6674 Jul, [facility] [id number] [place] [address] 64283- 4600 Jul, PTSD (post-traumatic stress disorder) F43.10 and Generalized anxiety disorder F41.1 [place] [address] 79631- 8952 Jul, [facility] [address] 17610- 4207 Jul, Obesity, morbid E66.01 ; Diabetes type 2, controlled E11.9 ; Hypertension, benign I10 and Arthritis M19.90 [place] [address] 81071- 1629 Jul, Type 2 diabetes mellitus without complications E11.9 [place] [id number] [place] [address] 93925- 1294 17 Jun, 2015 Type 2 diabetes mellitus with other specified complication E11.69 [place] [address] 85598- 6829 07 Jun, 2015 Type 2 diabetes mellitus with other specified complication E11.69 and Abdominal pain, generalized R10.84 [place] [id number] [place] [address] 70829- 6846 May, [place] [id number] [place] [address] 35902- 6755 May, Toothache K08.8 [facility] [id number] [place] [address] 46550- 3088 Apr, [facility] [id number] [place] [address] [id number] Mar, Dental examination Z01.20 and Dental caries K02.9 [place] [address] 02444- 3516 Mar, [facility] [id number] [address] Mar, Dental examination Z01.20 and Dental caries K02.9 [facility] [id number] [place] [address] 689795- 8534 Feb, Dental abscess K04.7 and Type 2 diabetes mellitus with other specified complication E11.69 [facility] [id number] [place] [address] 98917- 9484 Feb, [facility] [id number] [place] [address] 772734- 9784 Feb, PTSD (post-traumatic stress disorder) F43.10 ; Generalized anxiety disorder F41.1 and Depressive disorder F32.9 [facility] [id number] [place] [address] 04924- 1745 Jan, [facility] [address] 48747- 0263 Jan, [facility] [id number] [place] [address] 11001- 8664 Jan, [facility] [id number] [place] [address] 89130- 0675 Jan, [facility] [id number] [place] [address] 15764- 0053 14 Dec, 2014 Vision changes 368.9 ; Diabetes 250.00 and Hypertension 401.9 [facility] [id number] [place] [address] 68377- 6670 04 Dec, 2014 Generalized anxiety disorder 300.02 ; Depressive disorder, not elsewhere classified 311 and Posttraumatic stress disorder 309.81 [facility] [id number] [place] [address] 366989- 6036 Nov, [facility] [id number] [place] [address] 523738- 2739 Oct, [facility] [address] [place] [address]- 2282 Sep, Erectile dysfunction 607.84 [facility] [id number] [place] [address] 08156- 4431 Sep, [facility] [id number] [place] [address] 09834- 2996 Sep, Generalized anxiety disorder 300.02 ; Depressive disorder, not elsewhere classified 311 and Posttraumatic stress disorder 309.81 [facility] [id number] [address]- 5515 August, [facility] [id number] [place] [address] 99660- 3792 Jul, [facility] [id number] [place] [address] 52170- 0064 Jul, [facility] [id number] [place] [address] 13748- 7305 Jun, [facility] [id number] [address]- 5478 Jun, [facility] [address] [place] [address] 62071- 2753 Jun, [facility] [address] [address]- 0638 Jun, [facility] [address] [address]- 0487 Jun, [facility] [address] [address]- 7294 Jun, [facility] [address] [address]- 5522 Jun, [facility] [address] [address]- 9377 Jun, [facility] [address] [address]- 7159 Jun, [facility] [place] [facility] [address] [facility] [id number] [place] [address]- 2688 10 Jun, 2014 [facility] [place] [facility] [address] [id number] [place] [address]- 2742 Jun, 2014 [facility] [place] [facility] [address] [id number] [place] [address]- 3740 Jun, 2014 [facility] [place] [facility] [address] [id number] [place] [address]- 9002 Mar, [facility] [place] [facility] [address] [id number] [place] [address]- 1928 Mar, [facility] [place] [facility] [address] [id number] [place] [address]- 6409 Jan, [facility] [place] [facility] [address] [id number] [place] [address]- 4427 Jan, [facility] [place] [facility] [address] [id number] [place] [address]- 7325 15 Dec, 2013 [facility] [place] [facility] [address] [id number] [place] [address]- 6345 15 Dec, 2013 [facility] [place] [facility] [address] [id number] [place] [address]- 0976 15 Dec, 2013 [facility] [place] [facility] [address] [id number] [place] [address]- 4107 15 Dec, 2013 [facility] [place] [facility] [address] [id number] [place] [address]- 9984 Dec, 2013 [facility] [place] [facility] [address] [id number] [place] [address]- 2541 Dec, 2013 [facility] [place] [facility] [address] [id number] [place] [address]- 5160 Dec, 2013 [facility] [place] [facility] [address] [id number] [place] [address]- 0524 Dec, 2013 [facility] [place] [facility] [address] [id number] [place] [address]- 8641 Dec, [facility] [place] [facility] [address] [id number] [place] [address]- 3733 Dec, [facility] [place] [facility] [address] [id number] [place] [address]- 1796 Nov, [facility] [place] [facility] [address] [id number] [place] [address]- 6495 Nov, [facility] [place] [facility] [address] [id number] [place] [address]- 4514 Oct, [facility] [place] [facility] [address] [id number] [place] [address]- 7226 Oct, [facility] [place] [facility] [address] [id number] [place] [address]- 9814 Oct, [facility] [place] [facility] [address] [id number] [place] [address]- 6439 Oct, [facility] [place] [facility] [address] [id number] [place] [address]- 4300 Oct, [facility] [place] [facility] [address] [id number] [place] [address]- 4687 Oct, [facility] [place] [facility] [address] [id number] [place] [address]- 0622 Sep, [facility] [place] [facility] [address] [id number] [place] [address]- 1831 Sep, [facility] [place] [facility] [address] [id number] [place] [address]- 1900 Sep, [facility] [place] [facility] [address] [id number] [place] [address]- 4363 Sep, [facility] [place] [facility] [address] [id number] [place] [address]- 2892 August, [facility] [place] [facility] [address] [id number] [place] [address]- 3952 August, [facility] [place] [facility] [address] [id number] [place] [address]- 8280 August, [facility] [place] [facility] [address] [id number] [place] [address]- 8371 August, [facility] [place] [facility] [address] [id number] [place] [address]- 5596 August, [facility] [place] [facility] [address] [id number] [place] [address]- 9386 Jul, [facility] [place] [facility] [address] [id number] [place] [address]- 7939 Jul, [facility] [place] [facility] [address] [id number] [place] [address]- 8963 Jul, [facility] [place] [facility] [address] [id number] [place] [address]- 0693 Jul, [facility] [place] [facility] [address] [id number] [place] [address]- 8831 Jul, [facility] [place] [facility] [address] [id number] [place] [address]- 4141 Jul, [facility] [place] [facility] [address] [id number] [place] [address]- 1574 May, [facility] [place] [facility] [address] [id number] [place] [address]- 0140 May, [facility] [place] [facility] [address] [id number] [place] [address]- 9410 Apr, [facility] [place] [facility] [address] [id number] [place] [address]- 7132 Apr, [facility] [place] [facility] [address] [id number] [place] [address]- 9987 Apr, [facility] [place] [facility] [address] [id number] [place] [address]- 1339 Apr, [facility] [place] [facility] [address] [id number] [place] [address]- 8916 Apr, [facility] [place] [facility] [address] [id number] [place] [address]- 5758 Apr, [facility] [address] [id number] [place] [address]- 6848 Feb, [facility] [address] [id number] [place] [address]- 5585 Feb, [facility] [address] [id number] [place] [address]- 8930 Feb, [facility] [address] [id number] [place] [address]- 1507 Feb, [facility] [address] [id number] [place] [address]- 5765 Feb, [facility] [address] [id number] [place] [address]- 2294 Feb, [facility] [address] [id number] [place] [address]- 2293 Jan, [facility] [address] [id number] [place] [address]- 6601 Dec, [facility] [address] [id number] [place] [address]- 6105 Oct, [facility] [address] [id number] [place] [address]- 5005 August, [facility] [address] [id number] [place] [address]- 7075 August, [facility] [address] [id number] [place] [address]- 2078 August, [facility] [place] [facility] [address] [id number] [place] [address]- 4656 August, [facility] [address] [id number] [place] [address]- 7320 Jul, [facility] [address] [id number] [place] [address]- 4189 23 Jul, 2012 [facility] [address] [id number] [place] [address]- 7254 18 Jul, 2012 [facility] [address] [id number] [place] 4856 18 Jul, 2012 [facility] [address] [id number] [place] [address]- 1393 16 Jul, 2012 [facility] [address] [id number] [place] [address]- 0515 20 Jun, 2012 [facility] [address] [id number] [place] [address]- 1894 20 Jun, 2012 [facility] [address] [id number] [place] [address]- 6064 15 Jun, 2012 [facility] [address] [id number] [place] [address]- 8576 Jun, [facility] [address] [id number] [place] [address]- 0415 22 May, 2012 [facility] [address] [id number] [place] [address]- 1039 May, [facility] [address] [id number] [place] [address]- 6941 15 Apr, 2012 [facility] [address] [id number] [place] [address]- 9059 26 Mar, 2012 [facility] [place] [facility] [address] [id number] [place] [address]- 3854 26 Mar, 2012 [facility] [place] [facility] [address] [id number] [place] [address]- 2597 14 Mar, 2012 [facility] [place] [facility] [address] [id number] [place] [address]- 8320 14 Mar, 2012 [facility] [place] [facility] [address] [id number] [place] [address]- 9696 14 Mar, 2012 [facility] [place] [facility] [address] [id number] [place] [address] 14 Mar, 2012 [facility] [place] [facility] [address] [id number] [place] [address] Mar, [facility] [place] [facility] [address] [id number] [place] [address] 10 Mar, 2012 [facility] [place] [facility] [address] [id number] [place] [address] Mar, [facility] [place] [facility] [address] [id number] [place] [address] Feb, [facility] [place] [facility] [address] [id number] [place] [address] Feb, [facility] [place] [facility] [address] [id number] [place] [address] Feb, [facility] [place] [facility] [address] [id number] [place] [address] Feb, [facility] [place] [facility] [address] [id number] [place] [address] Feb, [facility] [place] [facility] [address] [id number] [place] [address] Feb, [facility] [place] [facility] [address] [facility] [id number] [place] [address] Feb, [facility] [place] [facility] [address] [id number] [place] [address] Feb, [facility] [place] [facility] [address] [id number] [place] [address] Jan, [facility] [place] [facility] [address] [id number] [place] [address] Jan, [facility] [place] [facility] [address] [id number] [place] [address] Jan, [facility] [place] [facility] [address] [id number] [place] [address] Jan, [facility] [place] [facility] [address] [id number] [place] [address] Jan, [facility] [place] [facility] [address] [id number] [place] [address] Jan, [facility] [place] [facility] [address] [id number] [place] [address] Jan, [facility] [place] [facility] [address] [id number] [place] [address] Jan, [facility] [place] [facility] [address] [id number] [place] [address] Jan, [facility] [place] [facility] [address] [id number] [place] [address] Jan, [facility] [place] [facility] [address] [id number] [place] [address] Dec, [facility] [place] [facility] [address] [id number] [place] [address] Dec, [facility] [place] [facility] [address] [id number] [place] [address] Dec, [facility] [place] [facility] [address] [id number] [place] [address] Nov, [facility] [place] [facility] [address] [id number] [place] [address] Nov, [facility] [place] [facility] [address] [id number] [address] Nov, [facility] [place] [facility] [address] [id number] [place] [address] Nov, [facility] [place] [facility] [address] [id number] [place] [address] Oct, [facility] [place] [facility] [address] [id number] [place] [address] Oct, [facility] [place] [facility] [address] [facility] [id number] [place] [address] Sep, [facility] [address] [facility] [id number] [place] [address] Sep, [facility] [address] [facility] [id number] [place] [address] Apr, [facility] [address] [facility] [id number] [place] [address] Apr, IMMUNIZATIONS No Known Immunizations SOCIAL HISTORY Never Assessed REASON FOR VISIT Diabetes, and help fileing for disability-[facility] [employer], PT says he has a popping sensation in the back of his head that hurts and happenes 2 or 3 times a day PLAN OF CARE VITAL SIGNS Height 75 in 2017-03-29 Weight 340.2 lbs 2017-03-29 Temperature 98.3 degrees Fahrenheit 2017-03-29 Heart Rate 82 bpm 2017-03-29 Respiratory Rate 20 2017-03-29 BMI 42.52 kg/m2 2017-03-29 Blood pressure systolic 138 mmHg 2017-03-29 Blood pressure diastolic 88 mmHg 2017-03-29 MEDICATIONS Medication Instructions Dosage Frequency Start Date End Date Duration Status ProAir HFA 108 (90 Base) MCG/ACT Inhalation every 4-6 hours 2 puffs as needed Jul, 30 days Active Toprol XL 50 mg Orally Once a day 1 tablet 24h Jun, 90 days Active Pravastatin Sodium 20 mg Orally Once a day. 1 tablet Jan, 90 days Active Zoloft 100 MG Orally Once a day 1.5 tablet 24h Mar, 30 days Active Topamax 100 MG Orally Once a day 1 tablet 24h Jun, 30 days Not -Taking Metformin HCl 1000 MG Orally 2 times a day 1 tablet with meals 12h 30 days Not-Taking Fish Oil 1000 MG Orally twice a day. please voucher 2 capsules Jul, Not-Taking HydrOXYzine HCl 25 MG Orally 2 times a day 1 tablet as needed 12h 30 Feb, 2017 90 days Active RESULTS No Results PROCEDURES Procedure Date Ordered Result Body Site GLYCATED HEMOGLOBIN TEST Mar 29, 2017 MICROALBUMIN, SEMIQUANT Mar 29, 2017 MICROALBUMIN, QUANTITATIVE Mar 29, 2017 ASSAY OF URINE CREATININE Mar 29, 2017 INSTRUCTIONS MEDICATIONS ADMINISTERED No Known Medications MEDICAL (GENERAL) HISTORY Type Description Date Medical History hypertension Medical History hyperlipidemia Medical History psychiatric disorders Medical History Type 2 diabetes Surgical History dental surgery Hospitalization History pneumonia 10/2006
--- OUTSIDE RECORDS SUMMARY | 2017-11-21 16:24 | XMS REPORT ---
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 Name Role Phone JAIRO SYKES Unavailable PROBLEMS Type Condition ICD9-CM Code [id number] Code Onset Dates Condition Status SNOMED Code Problem Low back pain M54.5 Active 801999230 Problem Schizotypal disorder F21 Active 69377996 Problem Major depressive disorder, single episode, unspecified F32.9 Active 703515912 Problem Seasonal allergic rhinitis due to pollen J30.1 Active 71605777 Problem Low back pain of thoracolumbar region with sciatica M54.40 Active 785846939 Problem Dental abscess K04.7 Active 081893522 Problem Type 2 diabetes mellitus with other specified complication E11.69 Active 71565907 Problem Controlled type 2 diabetes mellitus without complication, without long -term current use of insulin E11.9 Active 164775968 Problem Uncontrolled type 2 diabetes mellitus without complication, without long-term current use of insulin E11.65 Active 261948734 Problem Hypertension, benign I10 Active 49211187 Problem Bipolar 1 disorder F31.9 Active 567488219 Problem Diabetes type 2, controlled E11.9 Active 80405262 Problem Depression 311 Active 14011039 Problem Anxiety F41.9 Active 82643403 ALLERGIES No Information SOCIAL HISTORY Never Assessed PLAN OF CARE VITAL SIGNS MEDICATIONS Unknown Medications RESULTS No Results PROCEDURES No Known procedures IMMUNIZATIONS No Known Immunizations MEDICAL (GENERAL) HISTORY Type Description Date Medical History hypertension Medical History hyperlipidemia Medical History psychiatric disorders Medical History Type 2 diabetes Surgical History dental surgery Hospitalization History pneumonia 10/2006
--- OUTSIDE RECORDS SUMMARY | 2017-11-21 16:24 | XMS REPORT ---
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 Role Phone JAIRO SYKES Unavailable PROBLEMS Type Condition ICD9-CM Code [id number] Code Onset Dates Condition Status SNOMED Code Problem Low back pain M54.5 Active 424656635 Problem Schizotypal disorder F21 Active 29578905 Problem Major depressive disorder, single episode, unspecified F32.9 Active 118101966 Problem Seasonal allergic rhinitis due to pollen J30.1 Active 12352394 Problem Low back pain of thoracolumbar region with sciatica M54.40 Active 852351953 Problem Dental abscess K04.7 Active 965088888 Problem Type 2 diabetes mellitus with other specified complication E11.69 Active 81623481 Problem Controlled type 2 diabetes mellitus without complication, without long -term current use of insulin E11.9 Active 948507228 Problem Uncontrolled type 2 diabetes mellitus without complication, without long-term current use of insulin E11.65 Active 084608170 Problem Hypertension, benign I10 Active 96136258 Problem Bipolar 1 disorder F31.9 Active 624645771 Problem Diabetes type 2, controlled E11.9 Active 56250557 Problem Depression 311 Active 40362894 Problem Anxiety F41.9 Active 91665419 ALLERGIES Substance Reaction Event Type Date Status Zyban rash Drug Allergy May, Active Lipitor Unknown Drug Allergy May, Active SOCIAL HISTORY Never Assessed PLAN OF CARE Activity Details Follow Up 4 Weeks Reason:dm2 3 mo. checkup VITAL SIGNS Height 75 in 2016-06-26 Weight 353.0 lbs 2016-06-26 Temperature 97.3 degrees Fahrenheit 2016-06-26 Heart Rate 82 bpm 2016-06-26 Respiratory Rate 20 2016-06-26 BMI 44.12 kg/m2 2016-06-26 Blood pressure systolic 144 mmHg 2016-06-26 Blood pressure diastolic 82 mmHg 2016-06-26 MEDICATIONS Medication Instructions Dosage Frequency Start Date End Date Duration Status Topamax 100 mg Orally daily 1 tablet 24h 19 Mar, 2015 Active Zoloft 100 mg Orally Once a day 1.5 tablet 24h Mar, Active HydrOXYzine Pamoate 25 MG Orally BID anxiety 1 capsule as needed May, 30 day(s) Active ProAir HFA 108 (90 Base) MCG/ACT Inhalation 4 times a day. please voucher 2 puffs as needed Jul, Active Toprol XL 50 mg Orally Once a day 1 tablet 24h Jun, 90 days Active Pravastatin Sodium 20 mg Orally Once a day. 1 tablet Jan, Active Metformin HCl 1000 MG Orally Twice a day, voucher 1st fill only 1 tablet with meals Active Fish Oil 1000 MG Orally twice a day. please voucher 2 capsules Jul, Active RESULTS No Results PROCEDURES No Known procedures IMMUNIZATIONS No Known Immunizations MEDICAL (GENERAL) HISTORY Type Description Date Medical History hypertension Medical History hyperlipidemia Medical History psychiatric disorders Medical History Type 2 diabetes Surgical History dental surgery Hospitalization History pneumonia 10/2006
[2017-11-21 16:39] LABS: BASOPHILS % (AUTO) 0 % (0-10); EOSINOPHILS # (AUTO) 0.1 10^3/uL (0.0-0.3); EOSINOPHILS % (AUTO) 1 % (0-10); HEMATOCRIT 45 % (40-54); HEMOGLOBIN 15.8 G/DL (13.3-17.7); LYMPHOCYTES # (AUTO) 2.3 X 10^3 (1.0-4.0); LYMPHOCYTES % (AUTO) 19 % (12-44); MEAN CORPUSCULAR HEMOGLOBIN 30 PG (25-34); MEAN CORPUSCULAR HGB CONC 35 G/DL (32-36); MEAN CORPUSCULAR VOLUME 86 FL (80-99); MEAN PLATELET VOLUME 10.4 FL (7.4-10.4); MONOCYTES # (AUTO) 0.7 X 10^3 (0.0-1.0); MONOCYTES % (AUTO) 6 % (0-12); NEUTROPHILS # (AUTO) 9.1 X 10^3 (1.8-7.8); NEUTROPHILS % (AUTO) 74 % (42-75); PLATELET COUNT 231 10^3/uL (130-400); RED BLOOD COUNT 5.22 10^6/uL (4.35-5.85); WHITE BLOOD COUNT 12.3 10^3/uL (4.3-11.0)
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
[2017-11-21] MEDS ORDERED: [UNRECOGNIZED DRUG - OTHER] (16:43)
[2017-11-21 16:51] LABS: ALANINE AMINOTRANSFERASE 38 U/L (0-55); ALBUMIN 4.1 GM/DL (3.2-4.5); ALKALINE PHOSPHATASE 107 U/L (40-136); BILIRUBIN,TOTAL 0.4 MG/DL (0.1-1.0); BUN/CREATININE RATIO 9; CALCIUM 9.4 MG/DL (8.5-10.1); CARBON DIOXIDE 21 MMOL/L (21-32); CHLORIDE 108 MMOL/L (98-107); CREATININE SERUM 1.17 MG/DL (0.60-1.30); GFR ESTIMATED > 60; GLUCOSE 318 MG/DL (70-105); POTASSIUM 3.4 MMOL/L (3.6-5.0); SODIUM 138 MMOL/L (135-145)
[2017-11-21 18:13] LABS: CLARITY,URINE SLIGHTLY CLOUDY; COLOR,URINE AMBER; GLUCOSE, URINE (UA) 3+ (NEGATIVE); KETONES,URINE 1+ (NEGATIVE); LEUKOCYTE ESTERASE ,URINE 1+ (NEGATIVE); NITRITE,URINE POSITIVE (NEGATIVE); PH,URINE 5 (5-9); PROTEIN,URINE 3+ (NEGATIVE); UROBILINOGEN,URINE 8 MG/DL (NORMAL)
[2017-11-21] MEDS ORDERED: ONDANSETRON 4 MG/2 ML (SDV) Z0FRAN IVP ONE (18:30)
[2017-11-21 18:38] LABS: BILIRUBIN,URINE 1+ (NEGATIVE)
[2017-11-21 18:44] LABS: BACTERIA,URINE NEGATIVE /HPF; CALCIUM OXALATE CRYSTALS,UR FEW /LPF; RBC,URINE RARE /HPF
[2017-11-21 18:47] LABS: AMPHETAMINE SCREEN, URINE NEGATIVE (NEGATIVE); BARBITURATE SCREEN URINE NEGATIVE (NEGATIVE); BENZODIAZEPINES SCREEN URINE NEGATIVE (NEGATIVE); CANNABINOID SCREEN, URINE NEGATIVE (NEGATIVE); COCAINE SCREEN URINE NEGATIVE (NEGATIVE); METHADONE STAT NEGATIVE (NEGATIVE); METHAMPHETAMINE SCREEN URINE S NEGATIVE (NEGATIVE); OPIATE SCREEN URINE NEGATIVE (NEGATIVE); OXYCODONE STAT NEGATIVE (NEGATIVE); PROPOXYPHENE STAT NEGATIVE (NEGATIVE); TRICYCLIC ANTIDEPRESSANTS SCRE NEGATIVE (NEGATIVE)
[2017-11-21] MEDS ORDERED: cefTRIAXone 1 GM (ROCEPHIN) VIAL ONE (18:57)
[2017-11-21] MEDS ORDERED: NS (IVPB) 50 ML ONE (18:58)
[2017-11-21] MEDS ORDERED: cefTRIAXone INJECTION 1,000 MG in NS (IVPB) 50 ML IV ONE (19:00)
[2017-11-21] MEDS ORDERED: CEPH-507 PO (19:01)
[2017-11-21 19:20] VITALS: BP 113/86
== END 2017-11-21 19:20 | disposition home or self-care (01) ==
LOC: EDUNIT# 16:10 → ER 16:12
DX: N39.0 Urinary tract infection, site not specified (principal); E11.9 Type 2 diabetes mellitus without complications; E78.00 Pure hypercholesterolemia, unspecified; G47.30 Sleep apnea, unspecified; I10 Essential (primary) hypertension; F31.9 Bipolar disorder, unspecified; F41.9 Anxiety disorder, unspecified; F17.290 Nicotine dependence, other tobacco product, uncomplicated; Z88.8 Allergy status to other drugs, medicaments and biological substances; Z79.84 Long term (current) use of oral hypoglycemic drugs
CPT/HCPCS: 36415; 80053; 80306; 81000; 82962; 84443; 85025; 86141; 96374; 96375

== ENCOUNTER → 2018-02-13 | Outpatient (CLI) | payer OTHER ==
[~2018-02-13] MED LIST changes: +CEPH-507 PO; +HYDR-4226 PO; -HYDR-757 PO; +[UNRECOGNIZED DRUG - OTHER]
--- NOTE | 2018-02-13 10:36 | Diagnostic Imaging Report ---
INDICATION: Back pain and dyspnea. TECHNIQUE/COMPARISON: PA and lateral views of the chest were obtained with comparison made to the study of 12/22/2013. FINDINGS: The heart size and pulmonary vascularity are within normal limits. The lungs are clear bilaterally. IMPRESSION: Unremarkable chest . Dictated by: Dictated on workstation # [id number]
--- NOTE | 2018-02-13 10:37 | Diagnostic Imaging Report ---
INDICATION: Low back pain. TECHNIQUE: AP and lateral views of the lumbar spine were obtained. FINDINGS: The lumbar spinal curvature and alignment are within normal limits. There is no evidence of fracture or malalignment. The vertebral body heights and disc spaces are maintained. There may be a transitional S1 vertebra. IMPRESSION: No radiographic evidence of acute lumbar spinal abnormality. Dictated by: Dictated on workstation # [id number]
== END ==
LOC: RAD 09:59
PROVIDERS: ATTEND Internal Medicine Infectious Disease
DX: M54.5 Low back pain (principal); R06.00 Dyspnea, unspecified
CPT/HCPCS: 71046; 72100

== ENCOUNTER → 2018-10-11 | Outpatient (CLI) | payer OTHER | LOC: RT 11:43 | PROVIDERS: ATTEND Surgery | DX: Z02.71 Encounter for disability determination (principal) ==

== ENCOUNTER → 2022-11-03 | Outpatient (CLI) | payer OTHER ==
--- NOTE | 2022-11-03 18:04 | Diagnostic Imaging Report ---
INDICATION: Degenerative changes, pain. COMPARISON: Radiographs of the lumbar spine dated 02/13/2018. TECHNIQUE: Five radiographs of the pelvis and bilateral hips dated 11/03/2022. FINDINGS: S1 is again noted to be a transitional vertebral body. The sacroiliac joints are intact. No acute fracture or dislocation. No destructive osseous process. Minimal degenerative changes of the bilateral hips. The bilateral femoral heads maintain their normal shape and contour. No suspicious radiopaque foreign body. The pubic symphysis is intact. IMPRESSION: No acute osseous abnormality with low-grade degenerative changes of the bilateral hips. Dictated by: Dictated on workstation # [id number]
== END ==
LOC: RAD 09:48
PROVIDERS: ATTEND Family Medicine
DX: Z02.71 Encounter for disability determination (principal); M16.0 Bilateral primary osteoarthritis of hip
CPT/HCPCS: 73521